=== PATIENT | female | born 1960 | race Caucasian/White ===

== ENCOUNTER 2022-12-17 06:52 | Outpatient (OUT) | payer OTHER, BC, SELFPAY ==
[2022-12-17 07:42] LABS: Basophils Percent Auto 0.6 % (0.2-2.0); Eosinophils Absolute Auto 0.1 10^3/uL (0.0-0.7); Eosinophils Percent Auto 1.9 % (0.9-7.0); Hematocrit 41.9 % (36.0-48.0); Hemoglobin 14.2 g/dL (12.0-16.0); Immature Granulocytes Abs Auto 0.01 10^3/uL (0.00-0.03); Immature Granulocytes Pct Auto 0.2 % (0.0-0.5); Lymphocytes Absolute Auto 1.9 10^3/uL (1.2-3.8); Mean Corpuscular HGB Conc 33.9 g/dL (29.9-35.2); Mean Corpuscular Hemoglobin 31.8 pg (26.7-34.0); Mean Corpuscular Volume 93.9 fL (81.0-99.0); Mean Platelet Volume 9.8 fL (9.5-13.5); Monocytes Absolute Auto 0.4 10^3/uL (0.3-0.8); Neutrophils Absolute Auto 2.7 10^3/uL (1.4-6.5); Neutrophils Percent Auto 52.3 % (43.0-75.0); Platelet Count 287 10^3/uL (150-450); Red Blood Count 4.46 10^6/uL (4.20-5.40); Red Cell Distribution Width 12.1 % (11.0-15.0); White Blood Count 5.2 10^3/uL (4.0-11.0)
[2022-12-17 08:29] LABS: Alanine Aminotransferase 21 U/L (14-59); Albumin Globulin Ratio 1.2; Albumin Level 4.3 g/dL (3.4-5.0); Alkaline Phosphatase 77 U/L (46-116); Aspartate Amino Transferase 19 U/L (15-37); BUN Creatinine Ratio 25.8; Bilirubin Total 0.4 mg/dL (0.2-1.0); Calcium 9.5 mg/dL (8.5-10.1); Carbon Dioxide 27.9 mmol/L (21.0-32.0); Chloride 101 mmol/L (98-107); Chol HDL Ratio 2.1; Cholesterol 246 mg/dL (<=200); Estimated GFR (African America >60 (>=60); Estimated GFR (Non-African Ame >60 (>=60); Globulin 3.7 g/dL; Glucose 104 mg/dL (74-106); HDL Cholesterol 117 mg/dL (40-60); Potassium 3.9 mmol/L (3.5-5.1); Sodium 138 mmol/L (136-145); Thyroid Stimulating Hormone 2.439 uIU/mL (0.358-3.740); Triglycerides 96 mg/dL (<=150); VLDL CHOLESTEROL 19.2 mg/dL
== END 2022-12-17 06:53 | disposition home or self-care (01) ==
LOC: LAB 06:58
PROVIDERS: PCP Internal Medicine; Visit Provider Internal Medicine
DX: Z00.00 Encounter for general adult medical examination without abnormal findings (principal)
CPT/HCPCS: 36415; 80053; 80061; 84443; 85025

== ENCOUNTER 2023-02-17 14:49 | Outpatient (OUT) | payer OTHER, BC, SELFPAY ==
--- NOTE | 2023-02-17 14:51 | MM_ITS ---
Patient Name: REILLY VIVAS MR#: [id number] : 1960 Exam Date: 02/17/2023 Ordering Doctor: DR Tereso Mcgarry . RADIOLOGY REPORT PROCEDURE: MM TOMOSYNTHESIS SCREENING BI COMPARISON: MG MAMM SCREEN 3D DEJA CAD, 11/17/2021. MG MAMM SCREEN 3D DEJA CAD, 10/23/2020. MG MAMM SCREEN DEJA W CAD, 10/09/2019. MG MAMM DEJA SCRN W CAD DIG, 11/29/2012. INDICATIONS: Screening Calculator Name NCI Breast Cancer Risk Assessment Tool 5 Year Breast Cancer Risk 1.90% Lifetime Breast Cancer Risk 8.90% Personal Breast Cancer No Personal Ovarian Cancer No Treatments None Family Cancers None LOCATION: [facility] BREAST COMPOSITION: Extremely dense, which lowers the sensitivity of mammography. FINDINGS: DIAGNOSTIC CATEGORY 1--NEGATIVE. RIGHT BREAST: No significant suspicious finding. No significant change has occurred. LEFT BREAST: No significant suspicious finding. No significant change has occurred. RECOMMENDATIONS: ROUTINE MAMMOGRAM AND CLINICAL EVALUATION IN 12 MONTHS. PLEASE NOTE: A NORMAL MAMMOGRAM DOES NOT EXCLUDE THE POSSIBILITY OF BREAST CANCER. A CLINICALLY SUSPICIOUS PALPABLE LUMP SHOULD BE BIOPSIED. Dictated by: Migue Collazo M.D. on 02/18/2023 at 14:00 Approved by: Migue Collazo M.D. on 02/18/2023 at 14:04
== END 2023-02-17 14:50 | disposition home or self-care (01) ==
LOC: MAMMO 14:49
PROVIDERS: PCP Internal Medicine; Visit Provider Obstetrics & Gynecology
DX: Z12.31 Encounter for screening mammogram for malignant neoplasm of breast (principal)
CPT/HCPCS: 77063; 77067

== ENCOUNTER 2023-07-12 21:40 | Outpatient (REF) | payer OTHER, SELFPAY ==
--- OUTSIDE RECORDS SUMMARY | 2023-07-12 21:50 | XMS_ITS | CCD ---
Author Organization [facility] Care Team Providers Care Litigation Legal Secretary Name Role Phone CATHERINE ., DR GILLESPIE Attending Unavailable CATHERINE ., DR GILLESPIE Consulting Unavailable BALL, DR RIVERA Primary Care Unavailable CATHERINE ., DR GILLESPIE Admitting Unavailable SHARP, YODIT Consulting Unavailable GEOVANY II, NELSON Consulting Unavailable CATHERINE ., DR GILLESPIE Attending Unavailable CATHERINE ., DR GILLESPIE Consulting Unavailable BALL, DR RIVERA Primary Care Unavailable CATHERINE ., DR GILLESPIE Admitting Unavailable CATHERINE ., DR GILLESPIE Attending Unavailable BALL, DR RIVERA Primary Care Unavailable CATHERINE ., DR GILLESPIE Consulting Unavailable CATHERINE ., DR GILLESPIE Admitting Unavailable CATHERINE ., DR GILLESPIE Consulting Unavailable BALL, DR RIVERA Primary Care Unavailable CATHERINE ., DR GILLESPIE Admitting Unavailable CATHERINE ., DR GILLESPIE Attending Unavailable HYDE PARK, DR OXANA Hernandez Consulting Unavailable BALL, DR RIVERA Primary Care Unavailable CATHERINE ., DR GILLESPIE Admitting Unavailable CATHERINE ., DR GILLESPIE Attending Unavailable CATHERINE ., DR GILLESPIE Consulting Unavailable ZIEBER, DR KINJAL Diehl Consulting Unavailable ALEJANDRO, DR RIVERA Consulting Unavailable ALEJANDRO, DR RIVERA Primary Care Unavailable BALL, DR RIVERA Admitting Unavailable BALL, DR RIVERA Attending Unavailable CATHERINE ., DR GILLESPIE Consulting Unavailable CATHERINE ., DR GILLESPIE Attending Unavailable CATHERINE ., DR GILLESPIE Consulting Unavailable ALEJANDRO, DR RIVERA Primary Care Unavailable CATHERINE ., DR GILLESPIE Admitting Unavailable Alber Allen Unavailable ALEXANDRA MIRAMONTES Attending Unavailable ALBER ALLEN Referring Unavailable ALEXANDRA MIRAMONTES Attending Unavailable Allergies Allergy Classification Reported Allergen(s) Allergy Type Date of Onset Reaction(s) Facility (1 source) Amoxicillin Drug Allergy 6 [facility] Rep[facility] (3 sources) Penicillin Drug Allergy Unknown [facility] Other (3 sources) Substance with penicillin structure and antibacterial mechanism of action (substance) Drug allergy 1 PENICILLINS [facility] Other Medications Current Medications Medication Drug Class(es) Dates Sig (Normalized) Sig (Original) tiZANidine 4 mg oral tablet (4 sources) Central alpha-2 Adrenergic Agonist take 0.5-1 tablets by mouth once at bedtime Completed/Discontinued Medications Medication Drug Class(es) Dates Sig (Normalized) Sig (Original) azithromycin 250 mg oral tablet (5 sources) Macrolide Antimicrobial Start: 08-02-2022 Azithromycin 250 MG as directed Orally daily for 5 days Jan, Not-Taking/PRN Problems Active Problems Problem Classification Problem Date Documented Date Episodic/Chronic Abdominal pain (1 source) Pelvic and perineal pain; Translations: [PELVIC AND PERINEAL PAIN] Onset: 05-18-2022 Episodic Acute bronchitis (3 sources) Acute bronchitis; Translations: [Acute bronchitis due to other specified organisms] Episodic Administrative/social admission (1 source) Other specified counseling Episodic Anxiety disorders (2 sources) Generalized anxiety disorder; Translations: [Generalized anxiety disorder] Chronic Cancer of cervix (4 sources) High grade squamous intraepithelial lesion on cytologic smear of cervix (HGSIL); Translations: [Atypical squamous cells of undetermined significance on cervical Papanicolaou smear] Onset: 05-18-2022 Episodic Immunizations and screening for infectious disease (7 sources) Encounter for screening for human papillomavirus (HPV); Translations: [Contact with and (suspected) exposure to other viral communicable diseases] Onset: 01-30-2022 Resolved: 07-21-2021 Episodic Osteoarthritis (8 sources) Unilateral primary osteoarthritis, left hip; Translations: [Arthritis of left hip] Onset: 05-18-2022 Chronic Other bone disease and musculoskeletal deformities (10 sources) Idiopathic scoliosis AND/OR kyphoscoliosis; Translations: [Other idiopathic scoliosis, site unspecified] Onset: 10-20-2016 Chronic Other nutritional; endocrine; and metabolic disorders (3 sources) Overweight; Translations: [Overweight] Episodic Other upper respiratory disease (3 sources) Vocal cord paralysis; Translations: [Paralysis of vocal cords and larynx, unilateral] Chronic Other upper respiratory infections (10 sources) Acute maxillary sinusitis, unspecified; Translations: [Acute laryngitis] Onset: 01-30-2015 Episodic Prolapse of female genital organs (5 sources) Incomplete uterovaginal prolapse; Translations: [INCOMPLETE UTEROVAGINAL PROLAPSE] Onset: 05-07-2022 Chronic Residual codes; unclassified (5 sources) Asymptomatic menopausal state; Translations: [ASYMPTOMATIC MENOPAUSAL STATE] Onset: 11-17-2021 Episodic Residual codes; unclassified (3 sources) Postmenopausal state; Translations: [Asymptomatic menopausal state] Episodic Past or Other Problems Problem Classification Problem Date Documented Da te Episodic/Chronic Other bone disease and musculoskeletal deformities (1 source) Other specified disorders of bone density and structure, other site; Translations: [OTH D/O BONE DEN STRUCT OTH SITE] Onset: 11-18-2021 Episodic Other inflammatory condition of skin (3 sources) Seborrheic dermatitis; Translations: [Other seborrheic dermatitis] Onset: 10-20-2016 Episodic Other non-traumatic joint disorders (3 sources) Arthralgia of the pelvic region and thigh; Translations: [Pain in joint, pelvic region and thigh] Onset: 10-20-2016 Episodic Other nutritional; endocrine; and metabolic disorders (3 sources) Body mass index 25-29 - overweight; Translations: [Body mass index (BMI) 26.0-26.9, adult] Onset: 10-20-2016 Episodic Other screening for suspected conditions (not mental disorders or infectious disease) (9 sources) Encounter for screening for malignant neoplasm of cervix; Translations: [Encounter for screening mammogram for malignant neoplasm of breast] Onset: 11-18-2021 Resolved: 07-21-2021 Episodic Results Test Name Value Interpretation Reference Range Facility CBC W MANUAL DIFFon 05-07-19 23 ATYPICAL LYMPH # Normal [facility] Comment on above: Performed By: #### C BCMAN #### [facility] [address] [address] [address] Bradley De Oliveira ATYPICAL LYMPH % Normal [facility] Comment on above: Performed By: #### C BCMAN #### [facility] [address] [address] [address] Bradley De Oliveira BAND # Normal 0.0-0.3 [facility] Comment on above: Performed By: #### C BCMAN #### [facility] [address] [address] [address] Bradley De Oliveira BAND % Normal 0-5 [facility] Comment on above: Performed By: #### C ANDREW #### [facility] [address] [place] [address] Dr. Bradley De Oliveira BASOM # 0.00 103/ul Normal 0.00-0.10 [facility] Comment on above: Performed By: #### C ANDREW #### [facility] [address] [place] [address] Dr. Bradley De Oliveira BASOM % 0.0 % Critically low 0.2-2.0 [facility] Comment on above: Performed By: #### C BCALEXIS #### [facility] [address] [place] [address] Dr. Bradley De Oliveira BLAST # Normal [facility] Comment on above: Performed By: #### C ANDREW #### [facility] [address] [place] [address] Dr. Bradley De Oliveira BLAST % Normal [facility] Comment on above: Performed By: #### C BCALEXIS #### [facility] [address] [place] [address] Dr. Bradley De Oliveira CORRECTED WBC Normal 4.0-11.0 [facility] Comment on above: Performed By: #### C ANDREW #### [facility] [address] [place] [address] Dr. Bradley De Oliveira EOS # 0.00 103/ul Normal 0.00-0.70 [facility] Comment on above: Performed By: #### C ANDREW #### [facility] [address] [place] [address] Dr. Bradley De Oliveira EOS% 0.0 % Critically low 0.9-7.[address] [facility] Comment on above: Performed By: #### C BCALEXIS #### [facility] [address] [place] [address] Dr. Bradley De Oliveira HCT 40.8 % Normal 36.0-48.0 [facility] Comment on above: Performed By: #### C ANDREW #### [facility] [address] [place] [address] Dr. Bradley De Oliveira HGB 14.0 g/dl Normal 12.0-16.0 [facility] Comment on above: Performed By: #### C ANDREW #### [facility] [address] [place] [address] Dr. Bradley De Oliveira LYMPHM # 0.22 103/ul Critically low 1.20-3.80 [facility] Comment on above: Performed By: #### C ANDREW #### [facility] [address] [place] [address] Dr. Bradley De Oliveira LYMPHM% 2.0 % Critically low 20.5-60.0 [facility] Comment on above: Performed By: #### C ANDREW #### [facility] [address] [place] [address] Dr. Bradley De Oliveira MCH 31.3 pg Normal 26.7-34.0 [facility] Comment on above: Performed By: #### Shamar MORALES #### [facility] [address] [place] [address] Dr. Bradley De Oliveira MCHC 34.3 g/dl Normal 29.9-35.2 [facility] Comment on above: Performed By: #### Shamar MORALES #### [facility] [address] [place] [address] Dr. Bradley De Oliveira MCV 91.3 fL Normal 81.0-99.0 [facility] Comment on above: Performed By: #### Shamar MORALES #### [facility] [address] [place] [address] Dr. Bradley De Oliveira METAMYELOCYTE # Normal [facility] Comment on above: Performed By: #### Shamar MORALES #### [facility] [address] [place] [address] Dr. Bradley De Oliveira METAMYELOCYTE % Normal [facility] Comment on above: Performed By: #### C ANDREW #### [facility] [address] [place] [address] Dr. Bradley De Oliveira MONOM# 0.44 103/ul Normal 0.30-0.80 [facility] Comment on above: Performed By: #### C ANDREW #### [facility] [address] [address] [address] Bradley De Oliveira MONOM% 4.0 % Normal 1.7-12.0 [facility] Comment on above: Performed By: #### C ANDREW #### [facility] [address] [address] [address] Bradley De Oliveira MPV 9.3 fL Critically low 9.5-13.5 [facility] Comment on above: Performed By: #### C ANDREW #### [facility] [address] [place] [address] Dr. Bradley De Oliveira MYELOCYTE # Normal [facility] Comment on above: Performed By: #### C ANDREW #### [facility] [address] [place] [address] Dr. Bradley De Oliveira MYELOCYTE % Normal [facility] Comment on above: Performed By: #### Shamar MORALES #### [facility] [address] [place] [address] Dr. Bradley De Oliveira NRBC Normal [facility] Comment on above: Performed By: #### Shamar MORALES #### [facility] [address] [place] [address] Dr. Bradley De Oliveira PLT 293 103/ul Normal 150-450 [facility] Comment on above: Performed By: #### C ANDREW #### [facility] [address] [place] [address] Dr. Bradley De Oliveira RBC 4.47 106/ul Normal 4.20-5.40 [facility] Comment on above: Performed By: #### C ANDREW #### [facility] [address] [place] [address] Dr. Bradley De Oliveira RDW 12.4 % Normal 11.0-15.0 [facility] Comment on above: Performed By: #### C ANDREW #### [facility] [address] [place] [address] Dr. Bradley De Oliveira SEG # 10.34 103/ul Critically high 1.40-6.50 [facility] Comment on above: Performed By: #### C ANDREW #### [facility] [address] [address] [address] Bradley De Oliveira SEG % 94.0 % Critically high 43.0-75.0 [facility] Comment on above: Performed By: #### C ANDREW #### [facility] [address] [place] [address] Dr. Bradley De Oliveira WBC 11.0 103/ul Normal 4.0-11.0 [facility] Comment on above: Performed By: #### C ANDREW #### [facility] [address] [place] [address] Dr. Bradley De Oliveira CBC AUTO DIFFon 05-04-2022 BASO # 0.0 103/ul Normal 0.0-0.1 [facility] Comment on above: Performed By: #### P APH11A #### [facility] [address] [place] [address] Dr. Bradley De Oliveira Basophils/100 WBC (Bld) 0.5 % Normal 0.2-2.0 [facility] Comment on above: Performed By: #### P APH11A #### [facility] [address] [place] [address] Dr. Bradley De Oliveira EO # 0.1 103/ul Normal 0.0-0.7 [facility] Comment on above: Performed By: #### P APH11A #### [facility] [address] [place] [address] Dr. Bradley De Oliveira Eosinophils/100 WBC (Bld) 1.7 % Normal 0.9-7.0 [facility] Comment on above: Performed By: #### P APH11A #### [facility] [address] [place] [address] Dr. Bradley De Oliveira Erythrocyte distribution width (RBC) [Ratio] 12.4 % Normal 11.0-15.0 [facility] Comment on above: Performed By: #### P APH11A #### [facility] [address] [place] [address] Dr. Bradley De Oliveira Hematocrit (Bld) [Volume fraction] 39.9 % Normal 36.0-48.0 [facility] Comment on above: Performed By: #### P APH11A #### [facility] [address] [address] [address] Bradley De Oliveira Hemoglobin (Bld) [Mass/Vol] 14.0 g/dL Normal 12.0-16.0 [facility] Comment on above: Performed By: #### P APH11A #### [facility] [address] [address] [address] Bradley De Oliveira IG # 0.02 10e3/ul Normal 0.00-0.03 [facility] Comment on above: Performed By: #### P APH11A #### [facility] [address] [address] [address] Bradley De Oliveiar IG % 0.3 % Normal 0.0-0.5 [facility] Comment on above: Performed By: #### P APH11A #### [facility] [address] [place] [address] Dr. Bradley De Oliveira LYMPH # 2.5 103/ul Normal 1.2-3.8 [facility] Comment on above: Performed By: #### P APH11A #### [facility] [address] [place] [address] Dr. Bradley De Oliveira Lymphocytes/100 WBC (Bld) 38.7 % Normal 20.5-60.0 [facility] Comment on above: Performed By: #### P APH11A #### [facility] [address] [place] [address] Dr. Bradley De Oliveira MANUAL DIFF REQ NO Normal [facility] Comment on above: Performed By: #### P APH11A #### [facility] [address] [address] [address] Bradley De Oliveira MCH (RBC) [Entitic mass] 31.7 pg Normal 26.7-34.0 [facility] Comment on above: Performed By: #### P APH11A #### [facility] [address] [place] [address] Dr. Bradley De Oliveira MCHC (RBC) [Mass/Vol] 35.1 g/dL Normal 29.9-35.2 [facility] Comment on above: Performed By: #### P APH11A #### [facility] [address] [address] [address] Bradley De Oliveira MCV (RBC) [Entitic vol] 90.3 fL Normal 81.0-99.0 [facility] Comment on above: Performed By: #### P APH11A #### [facility] [address] [address] [address] Bradley De Oliveira MONO # 0.4 103/ul Normal 0.3-0.8 [facility] Comment on above: Performed By: #### P APH11A #### [facility] [address] [place] [address] Dr. Bradley De Oliveira Monocytes/100 WBC (Bld) 6.1 % Normal 1.7-12.0 [facility] Comment on above: Performed By: #### P APH11A #### [facility] [address] [place] [address] Dr. Bradley De Oliveira NEUT # 3.5 103/ul Normal 1.4-6.5 [facility] Comment on above: Performed By: #### P APH11A #### [facility] [address] [place] [address] Dr. Bradley De Oliveira Neutrophils/100 WBC (Bld) 52.7 % Normal 43.0-75.0 [facility] Comment on above: Performed By: #### P APH11A #### [facility] [address] [place] [address] Dr. Bradley De Oliveira Platelet mean volume (Bld) [Entitic vol] 9.3 fL Critically low 9.5-13.5 [facility] Comment on above: Performed By: #### P APH11A #### [facility] [address] [place] [address] Dr. Bradley De Oliveira PLT 304 103/ul Normal 150-450 [facility] Comment on above: Performed By: #### P APH11A #### [facility] [address] [place] [address] Dr. Bradley De Oliveira RBC 4.42 106/ul Normal 4.20-5.40 [facility] Comment on above: Performed By: #### P APH11A #### [facility] [address] [place] [address] Dr. Bradley De Oliveira WBC 6.6 103/ul Normal 4.0-11.0 [facility] Comment on above: Performed By: #### P APH11A #### [facility] [address] [place] [address] Dr. Bradley De Oliveira TYPE AND SCREENon 05-04-2022 TYPE AND SCREEN Negative Normal [facility] Comment on above: Performed By: #### T NS #### [facility] [address] [place] [address] Dr. Bradley De Oliveira Pap IG,rfx Aptima HPV all pt hon 02-04-2022 . . Normal [facility] Comment on above: Performed By: #### P APH11A #### [facility] [address] [place] [address] Dr. Bradley De Oliveira DIAGNOSIS: Comment Normal [facility] Comment on above: Result Comment: NEGA TIVE FOR INTRAEPITHELIAL LESION OR MALIGNANCY. Performed By: #### P APH11A #### [facility] [address] [place] [address] Dr. Bradley De Oliveira Methodology: Comment Normal [facility] Comment on above: Result Comment: This liquid based ThinPrep(R) pap test was screened with the use of an image guided system. Performed By: #### P APH11A #### [facility] [address] [place] [address] Dr. Bradley De Oliveira Note: Comment Normal [facility] Comment on above: Result Comment: The Pap smear is a screening test designed to aid in the detection of premalignant and malignant conditions of the uterine cervix. It is not a diagnostic procedure and should not be used as the sole means of detecting cervical cancer. Both false-positive and false-negative reports do occur. . Performed By: #### P APH11A #### [facility] [address] [place] [address] Dr. Bradley De Oliveira Performed by: Comment Normal [facility] Comment on above: Result Comment: Sofía Sauer, Supervisor [employer] ([employer]) Performed By: #### P APH11A #### [facility] [address] [place] [address] Dr. Bradley De Oliveira QC reviewed by: Comment Normal [facility] Comment on above: Result Comment: Stepan Gatica, Supervisory Supervisor [employer] ([employer]) Performed By: #### P APH11A #### [facility] [address] [place] [address] Dr. Bradley De Oliveira Reflex Criteria: Comment Normal [facility] Comment on above: Result Comment: The HPV DNA reflex criteria were not met with this specimen result therefore, no HPV testing was performed. . Performed By: #### P APH11A #### [facility] [address] [place] [address] Dr. Bradley De Oliveira Specimen adequacy: Comment Normal [facility] Comment on above: Result Comment: Sati sfactory for evaluation. Endocervical component may not be distinguished in cases of atrophy. Performed By: #### P APH11A #### [facility] [address] [place] [address] Dr. Bradley De Oliveira CBC AUTO DIFFon 11-28-2021 BASO # 0.0 103/ul Normal 0.0-0.1 [facility] Comment on above: Performed By: #### C BC #### [facility] [address] [place] [address] Dr. Bradley De Oliveira Basophils/100 WBC (Bld) 0.7 % Normal 0.2-2.0 [facility] Comment on above: Performed By: #### C BC #### [facility] [address] [place] [address] Dr. Bradley De Oliveira EO # 0.2 103/ul Normal 0.0-0.7 [facility] Comment on above: Performed By: #### C BC #### [facility] [address] [place] [address] Dr. Bradley De Oliveira Eosinophils/100 WBC (Bld) 3.7 % Normal 0.9-7.0 [facility] Comment on above: Performed By: #### C BC #### [facility] [address] [place] [address] Dr. Bradley De Oliveira Erythrocyte distribution width (RBC) [Ratio] 12.4 % Normal 11.0-15.0 [facility] Comment on above: Performed By: #### C BC #### [facility] [address] [place] [address] Dr. Bradley De Oliveira Hematocrit (Bld) [Volume fraction] 44.2 % Normal 36.0-48.0 [facility] Comment on above: Performed By: #### C BC #### [facility] [address] [place] [address] Dr. Bradley De Oliveira Hemoglobin (Bld) [Mass/Vol] 14.9 g/dL Normal 12.0-16.0 [facility] Comment on above: Performed By: #### C BC #### [facility] [address] [place] [address] Dr. Bradley De Oliveira IG # 0.01 10e3/ul Normal 0.00-0.03 [facility] Comment on above: Performed By: #### C BC #### [facility] [address] [place] [address] Dr. Bradley De Oliveira IG % 0.2 % Normal 0.0-0.5 [facility] Comment on above: Performed By: #### C BC #### [facility] [address] [place] [address] Dr. Bradley De Oliveira LYMPH # 1.7 103/ul Normal 1.2-3.8 [facility] Comment on above: Performed By: #### C BC #### [facility] [address] [place] [address] Dr. Bradley De Oliveira Lymphocytes/100 WBC (Bld) 39.6 % Normal 20.5-60.0 [facility] Comment on above: Performed By: #### C BC #### [facility] [address] [place] [address] Dr. Bradley De Oliveira MANUAL DIFF REQ NO Normal [facility] Comment on above: Performed By: #### C BC #### [facility] [address] [place] [address] Dr. Bradley De Oliveira MCH (RBC) [Entitic mass] 31.6 pg Normal 26.7-34.0 [facility] Comment on above: Performed By: #### C BC #### [facility] [address] [address] [address] Bradley De Oliveira MCHC (RBC) [Mass/Vol] 33.7 g/dL Normal 29.9-35.2 [facility] Comment on above: Performed By: #### C BC #### [facility] [address] [place] [address] Dr. Bradley De Oliveira MCV (RBC) [Entitic vol] 93.6 fL Normal 81.0-99.0 [facility] Comment on above: Performed By: #### C BC #### [facility] [address] [place] [address] Dr. Bradley De Oliveira MONO # 0.4 103/ul Normal 0.3-0.8 [facility] Comment on above: Performed By: #### C BC #### [facility] [address] [place] [address] Dr. Bradley De Oliveira Monocytes/100 WBC (Bld) 9.5 % Normal 1.7-12.0 [facility] Comment on above: Performed By: #### C BC #### [facility] Laboratory [address] [place] [address] Dr. Bradley De Oliveira NEUT # 2.0 103/ul Normal 1.4-6.5 [facility] Comment on above: Performed By: #### C BC #### [facility] [address] [place] [address] Dr. Bradley De Oliveira Neutrophils/100 WBC (Bld) 46.3 % Normal 43.0-75.0 [facility] Comment on above: Performed By: #### C BC #### [facility] [address] [place] [address] Dr. Bradley De Oliveira Platelet mean volume (Bld) [Entitic vol] 9.3 fL Critically low 9.5-13.5 [facility] Comment on above: Performed By: #### C BC #### [facility] [address] [place] [address] Dr. Bradley De Oliveira PLT 279 103/ul Normal 150-450 [facility] Comment on above: Performed By: #### C BC #### [facility] [address] [address] [address] Bradley De Oliveira RBC 4.72 106/ul Normal 4.20-5.40 [facility] Comment on above: Performed By: #### C BC #### [facility] [address] [address] [address] Bradley De Oliveira WBC 4.3 103/ul Normal 4.0-11.0 [facility] Comment on above: Performed By: #### C BC #### [facility] [address] [place] [address] Dr. Bradley De Oliveira LIPID PROFILEon 11-28-2021 CHOL-HDL RATIO NORM SEE BELOW Normal [facility] Comment on above: Result Comment: 3.3 - 4.4 LOW RISK 4.4 - 7.1 AVERAGE RISK 7.1 - 11.0 MODERATE RISK >11.0 HIGH RISK Performed By: #### C MP, LIPID, TSH #### [facility] [address] [place] [address] Dr. Bradley De Oliveira Cholesterol [Mass/Vol] 223 mg/dL Critically high <=200 [facility] Comment on above: Performed By: #### C MP, LIPID, TSH #### [facility] [address] [place] [address] Dr. Bradley De Oliveira Cholesterol in HDL [Mass/Vol] 108 mg/dL Critically high 40-60 [facility] Comment on above: Performed By: #### C MP, LIPID, TSH #### [facility] [address] [place] [address] Dr. Bradley De Oliveira Cholesterol in LDL [Mass/Vol] 100.6 mg/dL Normal [facility] Comment on above: Performed By: #### C MP, LIPID, TSH #### [facility] [address] [place] [address] Dr. Bradley De Oliveira Cholesterol.total/Ch olesterol in HDL [Mass ratio] 2.1 {ratio} Normal [facility] Comment on above: Performed By: #### C MP, LIPID, TSH #### [facility] [address] [place] [address] Dr. Bradley De Oliveira HDL NORMAL > or = 60 mg/dl - LO W CARDIOVASCULAR RISK <40 mg/dl - HIGH CARDIOVASCULAR RISK Normal [facility] Comment on above: Performed By: #### C MP, LIPID, TSH #### [facility] [address] [address] [address] Bradley De Oliveira LDL CALC NORMAL SEE BELOW Normal [facility] Comment on above: Result Comment: <100 mg/dl OPTIMAL 100 - 129 mg/dl NEAR OR ABOVE OPTIMAL 130 - 159 mg/dl BORDERLINE HIGH 160 - 189 mg/dl HIGH >190 mg/dl VERY HIGH Performed By: #### C MP, LIPID, TSH #### [facility] [address] [address] [address] Bradley De Oliveira Triglyceride [Mass/Vol] 72 mg/dL Normal <=150 [facility] Comment on above: Performed By: #### C MP, LIPID, TSH #### [facility] [address] [address] [address] Bradley De Oliveira VLDL CALC 14.4 mg/dL Normal [facility] Comment on above: Performed By: #### C MP, LIPID, TSH #### [facility] [address] [address] [address] Bradley De Oliveira PROF 14(COMP METB)on 022 Albumin [Mass/Vol] 4.2 g/dL Normal 3.4-5.0 [facility] Comment on above: Performed By: #### C MP, LIPID, TSH #### [facility] [address] [address] [address] Bradley De Oliveira Albumin/Globulin [Mass ratio] 1.1 {ratio} Normal [facility] Comment on above: Performed By: #### C MP, LIPID, TSH #### [facility] [address] [address] [address] Bradley De Oliveira ALP [Catalytic activity/Vol] 77 U/L Normal 46-116 [facility] Comment on above: Performed By: #### C MP, LIPID, TSH #### [facility] [address] [address] [address] Bradley De Oliveira ALT [Catalytic activity/Vol] 24 U/L Normal 14-59 [facility] Comment on above: Performed By: #### C MP, LIPID, TSH #### [facility] [address] [address] [address] Bradley De Oliveira Anion gap [Moles/Vol] 12.7 mmol/L Normal [facility] Comment on above: Performed By: #### C MP, LIPID, TSH #### [facility] [address] [address] [address] Bradley De Oliveira AST [Catalytic activity/Vol] 25 U/L Normal 15-37 [facility] Comment on above: Performed By: #### C MP, LIPID, TSH #### [facility] [address] [place] [address] Dr. Bradley De Oliveira Bilirubin [Mass/Vol] 0.4 mg/dL Normal 0.2-1.0 [facility] Comment on above: Performed By: #### C MP, LIPID, TSH #### [facility] [address] [place] [address] Dr. Bradley De Oliveira Calcium [Mass/Vol] 9.3 mg/dL Normal 8.5-10.1 [facility] Comment on above: Performed By: #### C MP, LIPID, TSH #### [facility] [address] [place] [address] Dr. Bradley De Oliveira Chloride [Moles/Vol] 102 mmol/L Normal 98-107 [facility] Comment on above: Performed By: #### C MP, LIPID, TSH #### [facility] [address] [place] [address] Dr. Bradley De Oliveira CO2 [Moles/Vol] 28.2 mmol/L Normal 21.0-32.0 [facility] Comment on above: Performed By: #### C MP, LIPID, TSH #### [facility] [address] [place] [address] Dr. Bradley De Oliveira Creatinine [Mass/Vol] 0.60 mg/dL Normal 0.55-1.02 [facility] Comment on above: Performed By: #### C MP, LIPID, TSH #### [facility] [address] [place] [address] Dr. Bradley De Oliveira EGFR-AF BRAZILIAN >60 Normal >=60 [facility] Comment on above: Performed By: #### C MP, LIPID, TSH #### [facility] [address] [place] [address] Dr. Bradley De Oliveira EGFR-NON AF BRAZILIAN >60 Normal >=60 [facility] Comment on above: Performed By: #### C MP, LIPID, TSH #### [facility] [address] [address] [address] Bradley De Oliveira Globulin (S) [Mass/Vol] 3.7 g/dL Normal [facility] Comment on above: Performed By: #### C MP, LIPID, TSH #### [facility] [address] [place] [address] Dr. Bradley De Oliveira Glucose [Mass/Vol] 89 mg/dL Normal 74-106 [facility] Comment on above: Performed By: #### C MP, LIPID, TSH #### [facility] [address] [place] [address] Dr. Bradley De Oliveira Potassium [Moles/Vol] 3.9 mmol/L Normal 3.5-5.1 [facility] Comment on above: Performed By: #### C MP, LIPID, TSH #### [facility] [address] [place] [address] Dr. Bradley De Oliveira Protein [Mass/Vol] 7.9 g/dL Normal 6.4-8.2 [facility] Comment on above: Performed By: #### C MP, LIPID, TSH #### [facility] [address] [place] [address] Dr. Bradley De Oliveira Sodium [Moles/Vol] 139 mmol/L Normal 136-145 [facility] Comment on above: Performed By: #### C MP, LIPID, TSH #### [facility] [address] [place] [address] Dr. Bradley De Oliveira Urea nitrogen [Mass/Vol] 14.0 mg/dL Normal 7.0-18.0 [facility] Comment on above: Performed By: #### C MP, LIPID, TSH #### [facility] [address] [place] [address] Dr. Bradley De Oliveira Urea nitrogen/Creatinine [Mass ratio] 23.3 mg/mg Normal [facility] Comment on above: Performed By: #### C MP, LIPID, TSH #### [facility] [address] [address] [address] Bradley De Oliveira TSHon 11-28-2021 TSH 1.453 uIU/mL Normal 0.358-3.740 [facility] Comment on above: Performed By: #### C MP, LIPID, TSH #### [facility] [address] [place], [place] [address] Dr. Bradley De Oliveira MG MAMM SCREEN 3D DEJA CADon 11-17-2021 MG MAMM SCREEN 3D DEJA CAD Patient: REILLY VIVAS Exam Date: 11/17/2021 : 1960 Gender:F Ordering : DR VERNA MCGARRY . Admission #: [id number] Family : Order #: [id number] CLICK HERE TO VIEW EXAM RADIOLOGY REPORT PROCEDURE: MAMMOGRAM SCREENING 3D BILATERAL CAD COMPARISON: MG MAMM SCREEN DEJA W CAD, 10/09/2019. MG MAMM SCREEN 3D DEJA CAD, 10/23/2020. INDICATIONS: Screening mammography Calculator Name NCI Breast Cancer Risk Assessment Tool 5 Year Breast Cancer Risk 1.70% Lifetime Breast Cancer Risk 9.40% Personal Breast Cancer No Personal Ovarian Cancer No Treatments None Family Cancers None LOCATION: [facility] BREAST COMPOSITION: Extremely dense, which lowers the sensitivity of mammography. FINDINGS: DIAGNOSTIC CATEGORY 1--NEGATIVE. NO CHANGE FROM COMPARISON ASSESSMENT. Scattered benign-appearing calcifications are present. RIGHT BREAST: No significant suspicious finding. LEFT BREAST: No significant suspicious finding. RECOMMENDATIONS: ROUTINE MAMMOGRAM AND CLINICAL EVALUATION IN 12 MONTHS. PLEASE NOTE: A NORMAL MAMMOGRAM DOES NOT EXCLUDE THE POSSIBILITY OF BREAST CANCER. A CLINICALLY SUSPICIOUS PALPABLE LUMP SHOULD BE BIOPSIED. Dictated by: Oxana Ortega MD on 11/18/2021 at 08:09 Approved by: Oxana Ortega MD on 11/18/2021 at 08:11 Normal [facility] XR DEXA BONE DENSITYon 11-17 XR DEXA BONE DENSITY EXAMINATION: XR DEX A BONE DENSITY, 11/17/2021 2:57 PM EDT HISTORY: Menopause present COMPARISON: DEXA bone densitometry 02/17/2016 TECHNIQUE: Dual-energy X-ray absorptiometry (DEXA) bone density study performed for the axial skeleton. FINDINGS: FOREARM ANALYSIS: Average bone mineral density is 0.648 g/cm2. T-score (standard deviation relative to young adult mean): -0.9 . Not previously evaluated. HIP ANALYSIS: Lowest bone mineral density is within the left femoral trochanter, 0.676 g/cm2. T-score (standard deviation relative to young adult mean): -1.5 . -7.7% change since prior study. IMPRESSION: [employer] Classification: Osteopenia - Moderate Fracture Risk Electronically authenticated by: KINJAL MANNING Date: 2021-11-17 15:54 Normal [facility] Pap IG, rfx Aptima HPV ASCUo n 07-30-2021 . . Normal [facility] Comment on above: Performed By: #### P [id number] #### [facility] [address] [address] [address] Bradley De Oliveira DIAGNOSIS: Comment Abnormal [facility] Comment on above: Result Comment: EPIT HELIAL CELL ABNORMALITY. ATYPICAL SQUAMOUS CELLS OF UNDETERMINED SIGNIFICANCE (ASC-US). Performed By: #### P APH11A #### [facility] [address] [address] [address] Bradley De Oliveira Electronically signed by: Comment Normal [facility] Comment on above: Result Comment: Minerva Pizarro MD, Pathologist Performed By: #### P APH11A #### [facility] [address] [address] [address] Bradley De Oliveira HPV Aptima Positive Abnormal Negative [facility] Comment on above: Result Comment: This nucleic acid amplification test detects fourteen high-risk HPV types (16,18,31,33,35,39,45,51,52,56,58,59,66,68) without differentiation. Performed By: #### P APH11A #### [facility] [address] [address] [address] Bradley De Oliveira Methodology: Comment Normal [facility] Comment on above: Result Comment: This liquid based ThinPrep(R) pap test was screened with the use of an image guided system. Performed By: #### P APH11A #### [facility] [address] [address] [address] Bradley De Oliveira Note: Comment [facility] Comment on above: Result Comment: The Pap smear is a screening test designed to aid in the detection of premalignant and malignant conditions of the uterine cervix. It is not a diagnostic procedure and should not be used as the sole means of detecting cervical cancer. Both false-positive and false-negative reports do occur. . Performed By: #### P APH11A #### [facility] [address] [address] [address] Bradley De Oliveira Pathologist Provided ICD10 Comment [facility] Comment on above: Result Comment: [id number] Performed By: #### P APH11A #### [facility] [address] [place] [address] Dr. Bradley De Oliveira Performed by: Comment [facility] Comment on above: Result Comment: Kathryn Braun, Supervisor [employer] ([employer]) Performed By: #### P APH11A #### [facility] [address] [place] [address] Dr. Bradley De Oliveira Reflex Criteria: Comment [facility] Comment on above: Result Comment: See below for HPV testing results. . Performed By: #### P APH11A #### [facility] [address] [place] [address] Dr. Bradley De Oliveira Specimen adequacy: Comment [facility] Comment on above: Result Comment: Sati sfactory for evaluation. Endocervical and/or squamous metaplastic cells (endocervical component) are present. Performed By: #### P APH11A #### [facility] [address] [place] [address] Dr. Bradley De Oliveira Vital Signs Date Time Vital Sign Value Performing Clinician Facility 03-18-2023 09:00-0500 Body height 153.67 cm [facility] Other 03-18-2023 09:00-0500 Body mass index (BMI) [Ratio] 28.08 kg/m2 [facility] Other 03-18-2023 09:00-0500 Body weight 66.32 kg Alber Ball Other [facility] Other 03-18-2023 09:00-0500 Diastolic blood pressure 82 mm[Hg] Alber Ball Other [facility] Other 03-18-2023 09:00-0500 Respiratory rate 12 /min Alber Ball Other [facility] Other 03-18-2023 09:00-0500 Systolic blood pressure 132 mm[Hg] Alber Ball Other [facility] Other Encounters Encounter Date Encounter Type Care Provider Facility Start: 05-18-2023 End: 05-18-2023 ambulatory ALEXANDRA M MIRAMONTES Not Available Start: 04-13-2023 End: 04-13-2023 ambulatory ALEXANDRA M MIRAMONTES Not Available Start: 03-18-2023 End: 03-18-2023 ambulatory Alber Ball Other [facility] Other Start: 03-18-2023 Office outpatient vi sit 15 minutes Alber Ball [facility] Start: 01-02-2023 End: 01-02-2023 ambulatory Alber Ball Other [facility] Other Start: 01-02-2023 Telephone encounter Alber Ball [facility] Start: 12-20-2022 End: 12-20-2022 ambulatory Alber Ball Other [facility] Other Start: 12-20-2022 Telephone encounter Alber Ball [facility] Start: 08-02-2022 End: 08-02-2022 ambulatory Alber Ball Other [facility] Other Start: 08-02-2022 Office outpatient vi sit 15 minutes Alber Ball [facility] Start: 05-09-2022 Encounter for preprocedural laboratory examination DR VERNA MCGARRY . [facility] Start: 05-07-2022 End: 05-07-[address] VERNA MCGARRY . Facility:[facility] Start: 05-04-2022 End: 05-05-[address] VERNA MCGARRY . Facility:[facility] Start: 05-04-2022 End: 05-05-2022 Encounter for preprocedural laboratory examination DR VERNA MCGARRY . Facility:[facility] Start: 04-25-2022 Encounter for preprocedural cardiovascular examination DR VERNA MCGARRY . [facility] Start: 04-22-2022 End: 04-23-[address] VERNA MCGARRY . Facility:[facility] Start: 04-22-2022 End: 04-23-2022 Encounter for preprocedural cardiovascular examination DR VERNA MCGARRY . Facility:[facility] Start: 01-26-2022 End: 01-26-[address] VERNA MCGARRY . Facility:[facility] Start: 12-04-2021 Encounter for genera l adult medical examination without abnormal findings DR ALBER ALLEN [facility] Start: 11-28-2021 End: 11-29-[address] ALBER ALLEN Facility:[facility] Start: 11-28-2021 End: 11-29-2021 Encounter for general adult medical examination without abnormal findings DR ALBER ALLEN Facility:[facility] Start: 11-17-2021 End: 11-18-[address] OXANA ORTEGA Facility:[facility] Start: 11-13-2021 Adult health examination Laz sherley Allen Other [facility] Other Start: 11-12-2021 Gynecological examin ation normal Alber Allen Other [facility] Other Start: 11-12-2021 History of abnormal cervical Papanicolaou smear Alber Allen Other [facility] Other Start: 07-22-2021 End: 07-22-[address] VERNA MCGARRY . Facility:[facility] Procedures Date Procedure Procedure Detail Performing Clinician Start: 02-28-2018 General examination of patient Alber Allen Other Depression screening Vickie Allen Other Screening for malign ant neoplasm of breast Alber Ball Other Screening for malign ant neoplasm of colon Alber Ball Other Payers Date Payer Category Payer Unknown [id number] 2.16.84 [id number] 1960 Unknown [id number] 2.16.84 [id number] 1960 Unknown [id number] 2.16.84 [id number] 1960 Unknown [id number] 2.16.84 [id number] 1960 Unknown [id number] 2.16.84 [id number] 1960 Unknown [id number] 2.16.84 [id number] 1960 Unknown [id number] 2.16.84 [id number] 1960 Unknown [id number] 2.16.84 [id number] 1960 Unknown [id number] 2.16.84 [id number] 1959 Unknown [id number] 1958 Unknown [id number] 1958 Unknown [id number] 1958 Unknown [id number] [facility] [[email or web address]] [id number] Social History Date Type Detail Facility Sex Assigned At [facility] Other Evaluation note 03-18-2023 Note Date & Type Note Facility 03-18-2023 Evaluation note Encounter Date Diagnosis Assessment Notes Feb, RHONDA (generalized anxiety disorder) (ICD-10 - F41.1) Healthy diet and exercise. Referral for counseling. Discussed medical treatment but she declines for now. She is coping well but requesting referral for reassurance and advice Feb, Counseling and coordination of care (ICD-10 - Z71.89) Referral sent for counseling [facility] Other Evaluation note 12-20-2022 Note Date & Type Note Facility 12-20-2022 Evaluation note Encounter Date Diagnosis Assessment Notes Dec, Screening for colon cancer (ICD-10 - Z12.11) [facility] Other Evaluation note 08-02-2022 Note Date & Type Note Facility 08-02-2022 Evaluation note Encounter Date Diagnosis Assessment Notes July, Acute non-recurrent maxillary sinusitis (ICD-10 - J01.00) Instructed to use Robitussin or Mucinex for cough, saline or Flonase NS for congestion, Tylenol for pain and fever. [facility] Other Clinical Note 05-07-2022 Note Date & Type Note Facility 05-07-2022 Note OPERATIVE NOTE OPERATION DATE: 05/07/2022 PROCEDURE: vNOTES hysterectomy with bilateral salpingo-oophorectomy. PREOPERATIVE DIAGNOSIS: Uterine prolapse, vaginal pressure. POSTOPERATIVE DIAGNOSIS: Uterine prolapse, vaginal pressure. ANESTHESIA: General. SURGEON: Verna Mcgarry D.O. MANAGER CONTENT: BLESSING [place] URINE OUTPUT: Yellow and clear. BLOOD LOSS: 25 mL. SPECIMEN: Uterus, tubes and ovaries. FINDINGS: Normal appearing ovaries, uterus and tubes. URINE OUTPUT: Yellow and clear. PROCEDURE: Patient was brought back to the operating room where she was given general anesthesia. She was placed in the dorsal lithotomy position, after being prepped and draped in a sterile fashion. A Poole catheter was placed. A weight speculum was placed posterior in the vagina. The cervix was grasped anteriorly and posteriorly with two single tooth tenaculums and placed on traction. A solution of Marcaine, lidocaine and epinephrine and saline was liberally infiltrated into the cervicovaginal junction. The knife was then used to circumscribe the cervicovaginal junction and the posterior cul-de-sac was sharply entered without difficulty. The long weighted duck tail speculum was then placed and the peritoneum was tacked to the vaginal epithelium. We then turned our attention to the uterosacral ligaments which were bilaterally cross clamped, transected and suture ligated, and they were held with hemostats. Attention was then turned to the anterior compartment, where the cervicovaginal junction was similarly divided and the bladder was then sharply and bluntly dissected off the cervix and lower uterine segment, and the anterior cul-de-sac was sharply entered. The epithelium was tacked to the peritoneum. Lateral attachments of the uterus were secured with Delbert clamps and suture ligated. The retractors were then removed and were placed by the path inner ring anteriorly followed by posteriorly. Once the ring was seated, the cap was placed and the laparoscopic ports were placed through this cap and the gas was allowed to insufflate the pelvis. A GynLap was placed posteriorly to facilitate mobilization of the bowel and control bleeding. This was later retrieved. The LigaSure device was used to secure the lateral attachments of the uterus on the left side, including the cardinal ligaments and the uterine vasculature, once the utero-ovarian ligament was reached. We turned attention to the right side, where the LigaSure device was used to fully detach the uterus from the pelvic side wall. The ureters were seen visually; before, during and after the pedicles were created. The ureters were bilaterally in normal locations, peristalsing. On the right side, the fallopian tube was easily divided away from the ovary and removed from the field. The left sided ovary was normal and the tube was left attached to the uterus, and the fimbriated end detached from the ovary. The uterus, both fallopian tubes were removed from the field. The GynLap was also removed from the field. The inner ring and gel ports cap were removed and the vaginal retractors were replaced. Lateral figure of eight sutures were placed bilaterally where bleeding occurred behind the ring and no further sutures were needed. The colpopexy was then carried out, passing a stitch posterior to the vaginal wall, capturing the left uterosacral ligament, going across the posterior peritoneum to the right uterosacral ligament and exiting out the vaginal wall posteriorly. The vaginal cuff was then closed in a single running/locking stitch, using O Monocryl and the uterosacral ligaments were cut. Once the vaginal cuff was fully closed, the uterosacral colpopexy stitch was then tied down tightly, elevating the vaginal cuff to the uterosacral ligaments in a satisfactory manner. The Poole catheter was removed and the patient was awakened and taken recovery in excellent condition. Sponge, lap, needle counts correct x2. [facility] Clinical Note 05-07-2022 Note Date & Type Note Facility 05-07-2022 Note OPERATIVE NOTE OPERATION DATE: 05/15/2022 ADDENDUM: Please note patient had uterus and tubes removed from the abdomen through the vagina. [facility] History general Narrative - Reported 04-21-2022 Note Date & Type Note Facility 04-21-2022 History general N arrative - Reported Type Medical History Scoliosis (and kypho scoliosis), idiopathic Medical History Arthritis of left hip Surgical History Hysterectomy 04/2022 Hospitalization History see surgical history [facility] Other Evaluation note Note Date & Type Note Facility Evaluation note No Information [facility] Other History general Narrative - Reported Note Date & Type Note Facility History general Narrative - Reported Type Medical History Scoliosis (and kyphoscoliosis), idiopathic Medical History Arthritis of left hip [facility] Other Reason for referral (narrative) Note Date & Type Note Facility Reason for referral (narrative) Diagnosis 1 RHONDA (generalized anx iety disorder) (F41.1) Referral Organization [facility] radha Referring Provider First Name Alber Referring Provider Last Name Alejandro Referring Provider Specialty Internal [facility] dicine Referred Organization [facility] Referred Address ,[place], [place],[address] Referred Provider Specialty Social Worke r Clinical Referral Priority Routine General Notes Requesting referral to [facility] counseling: Christa Wilson [employer] Other Summary Purpose Family History No Family History Records FoundNo Family History Records Found Advance Directives No Advanced Directives Records FoundNo Advanced Directives Records Found Additional Source Comments INFORMATION SOURCE (unrecogn ized section and content) DATE CREATED AUTHOR 06/18/2022 [facility] DATE CREATED AUTHOR AUTHOR'S ORGANIZ ATION 05/21/2023 [facility] EPIC REASON FOR VISIT (unrecogniz ed section and content) SORE THROAT COUGH CONGESTION DRAINAGE [phone] ResultsCologuard resultsreferral for counseling FOR RECORDS PERTAINING TO PATIENTS WHO ARE OR HAVE BEEN ENROLLED IN A CHEMICAL DEPENDENCY/SUBSTANCEABUSE PROGRAM, SOME INFORMATION MAY BE OMITTED. This clinical summary was aggregated from multiple sources. Caution should be exercised in using it in the provision of clinical care. This summary normalizes information from multiple sources, and as a consequence, information in this document may materially change the coding, format and clinical context of patient data. In addition, data may be omitted in some cases. CLINICAL DECISIONS SHOULD BE BASED ON THE PRIMARY CLINICAL RECORDS. [facility]. provides no warranty or guarantee of the accuracy or completeness of information in this document.
== END 2023-07-12 21:41 | disposition home or self-care (01) ==
LOC: LAB 21:40
PROVIDERS: PCP Internal Medicine; Visit Provider Obstetrics & Gynecology
DX: Z01.419 Encounter for gynecological examination (general) (routine) without abnormal findings (principal)
CPT/HCPCS: 87624; G0145

== ENCOUNTER 2023-09-13 10:18 | Outpatient (OUT) | payer OTHER, SELFPAY ==
--- NOTE | 2023-09-13 | XR_ITS ---
The [address] [address] Patient Name: REILLY VIVAS MRN: [id number] date: 1960 Sex: F Assigned Patient Location: RAD Current Patient Location: RAD Accession/Order Number: [id number] Exam Date: 09/13/2023 10:30 Report Date: 09/13/2023 11:28 At the request of: NICOLE HERNANDEZ Procedure: XR hip RT 2V w/ pelvis PROCEDURE: XR hip RT 2V w/ pelvis COMPARISON: None. HISTORY: M25.551, Pain in right hip FINDINGS: BONES:No acute fracture or dislocation. Mild right and severe left hip osteoarthritis with joint space narrowing and marginal osteophyte formation. SOFT TISSUES:Negative. No visible soft tissue swelling. EFFUSION:None visible. OTHER: Negative. XR/XR hip RT 2V w/ pelvis IMPRESSION: Mild right and severe left hip osteoarthritis Electronically authenticated by: OXANA ORTEGA Date: 09/13/2023 11:28
== END 2023-09-13 10:19 | disposition home or self-care (01) ==
LOC: RAD 10:19
PROVIDERS: PCP Internal Medicine; Visit Provider Internal Medicine
DX: M25.551 Pain in right hip (principal); M16.0 Bilateral primary osteoarthritis of hip
CPT/HCPCS: 73502

== ENCOUNTER 2023-12-28 10:37 | Outpatient (OUT) | payer OTHER, SELFPAY ==
--- OUTSIDE RECORDS SUMMARY | 2023-12-28 10:43 | XMS_ITS | CCD ---
Author Organization [facility] Care Team Providers Care Tape Deck Installer Name Role Phone CATHERINE ., DR GILLESPIE [...] Unavailable CATHERINE ., DR GILLESPIE Attending Unavailable DE YOUNG, DR OXANA Hernandez Consulting Unavailable BALL, DR RIVEAR Primary Care Unavailable CATHERINE ., DR GILLESPIE Admitting Unavailable CATHERINE ., DR GILLESPIE Attending Unavailable CATHERINE ., DR GILLESPIE Consulting Unavailable ZIEBER, DR KINJAL iDehl Consulting Unavailable ALEJANDRO, DR RIVERA Consulting Unavailable [...] ALLEN Referring Unavailable ALEXANDRA MIRAMONTES Attending Unavailable VERNA MCGARRY Attending Unavailable Allergies Allergy Classification Reported Allergen(s) Allergy Type Date of Onset Reaction(s) Facility (1 source) Amoxicillin Drug Allergy 6 [facility] Repository (3 sources) Penicillin Drug Allergy Unknown [facility] Other (3 sources) Substance with penicillin structure and antibacterial mechanism of action (substance) Drug allergy 1 [facility] Other Medications Current Medications Medication Drug Class(es) Dates Sig (Normalized) Sig (Original) meloxicam 15 mg oral tablet (1 source) Nonsteroidal Anti-inflammatory Drug Start: 09-12-2023 take 15 mg by mouth once daily Meloxicam Active 15 MG PO Daily September 12, 2023 12:00am Completed/Discontinued Medications Medication Drug Class(es) Dates Sig (Normalized) Sig (Original) azithromycin 250 mg oral tablet (5 sources) Macrolide Antimicrobial Start: 08-02-2022 Azithromycin 250 MG as directed Orally daily for 5 days Jan, Not-Taking/PRN tiZANidine 4 mg oral tablet (5 sources) Central alpha-2 Adrenergic Agonist Start: 09-12-2023 End: 09-12-2023 take 0.5-1 tablets by mouth once at bedtime take 0.5-1 tablets by mouth once at bedtime Problems Active Problems Problem Classification Problem Date [...] scoliosis, site unspecified] Onset: 10-20-2016 Chronic Other non-traumatic joint disorders (1 source) Hip pain; Translations: [Pain in right hip] 09-12-2023 Episodic Other nutritional; endocrine; and metabolic disorders [...] Test Name Value Interpretation Reference Range Facility Human papilloma virus 16+18+ 31+33+35+39+45+51+52+56+58+59+66+68 DNA [Presence] in [place] 07-12-2023 HPV 16+18+31+33+35+39+45 +51+52+56+58+59+66+6 8 DNA Probe+sig amp Ql (Cvx) Negative Negative [facility] Comment on above: This nucleic acid am plification test detects fourteen high- risk HPV types (16,18,31,33,35,39,45,51,52,56,58,59,66,68)without differentiation.Performed at: =G - [facility] [address] [id number] Director: Karen Caba MD, Phone: [phone] at: - [facility] [id number] Director: Karen Caba MD, Phone: [phone] No Panel Informationon 07-11 HPV High Risk Other Comment Note . [facility] Comment on above: TESTS RESULT FLAG UN ITS REF RANGE LAB DI AGNOSIS: 02 NEGATIVE FOR INTRAEPITHELIAL LESION OR MALIGNANCY. CELLULAR CHANGES ASSOCIATED WITH ATROPHY ARE PRESENT.Specimen adequacy: 02 Satisfactory for evaluation.Performed by: Lilly Chicas, Category Analyst (ASCP). 02Note: Note 02 The Pap smear is a screening test designed to aid in the detection of premalignant and malignant conditions of the uterine cervix. It is not a diagnostic procedure and should not be used as the sole means of detecting cervical cancer. Both false-positive and false-negative reports do occur.Test Methodology: Note 02 This liquid based ThinPrep(R) pap test was screened with the use of an image guided system.HPV Genotype Reflex Note 02 Criteria not met, HPV Genotype not performed. ----- FLAG LEGEND: L-Low Normal,H-High Normal,LL-Alert Low,HH-Alert High <-Panic Low,>-Panic High,A-Abnormal,AA-Critical Abnormal ---Performed at:02 WB [facility] [address] [place] [address] Karen Caba MD, Reference Lab Test Patient Age Note . [facility] Comment on above: TESTS RESULT FLAG UN ITS REF RANGE LAB Clinician Provided Cytology Information Source.............Vagina No. of containers..01 ThinPrep VialAge Adrián YI Claudia... 31 FLAG LEGEND: L-Low Normal,H-High Normal,LL-Alert Low,HH-Alert High <-Panic Low,>-Panic High,A-Abnormal,AA-Critical Abnormal ---Performed at:01 =G [facility] [place] [address] [place] [address] Karen Caba MD, CBC W MANUAL DIFFon 05-07-19 23 ATYPICAL LYMPH # Normal [facility] Comment on above: Performed By: #### C ANDREW #### [facility] [address] [address] [address] Bradley De Oliveira ATYPICAL LYMPH % Normal [facility] Comment on above: Performed By: #### C BCMAN #### [facility] [address] [place] [address] Dr. Bradley De Oliveira BAND # Normal 0.0-0.3 [facility] Comment on above: Performed By: #### C BCMAN #### [facility] [address] [place] [address] Dr. Bradley De Oliveira BAND % Normal 0-5 [facility] Comment on above: Performed By: #### C BCMAN #### [facility] [address] [place] [address] Dr. Bradley De Oliveira BASOM # 0.00 103/ul Normal 0.00-0.10 [facility] Comment on above: Performed By: #### C BCMAN #### [facility] [address] [place] [address] Dr. Bradley De Oliveira BASOM % 0.0 % Critically low 0.2-2.0 [facility] Comment on above: Performed By: #### C BCMAN #### [facility] [address] [place] [address] Dr. Bradley De Oliveira BLAST # Normal [facility] Comment on above: Performed By: #### C BCMAN #### [facility] [address] [place] [address] Dr. Bradley De Oliveira BLAST % Normal [facility] Comment on above: Performed By: #### C BCMAN #### [facility] [address] [place] [address] Dr. Bradley De Oliveira CORRECTED WBC Normal 4.0-11.0 [facility] Comment on above: Performed By: #### C BCMAN #### [facility] [address] [place] [address] Dr. Bradley De Oliveira EOS # 0.00 103/ul Normal 0.00-0.70 [facility] Comment on above: Performed By: #### C BCMAN #### [facility] [address] [place] [address] Dr. Bradley De Oliveira EOS% 0.0 % Critically low 0.9-7.0 [facility] Comment on above: Performed By: #### C ANDREW #### [facility] [address] [place] [address] Dr. Bradley De Oliveira HCT 40.8 % Normal 36.0-48.0 [facility] Comment on above: Performed By: #### C ANDREW #### [facility] [address] [address] [address] Bradley De Oliveira HGB 14.0 g/dl Normal 12.0-16.0 [facility] Comment on above: Performed By: #### C ANDREW #### [facility] [address] [place] [address] Dr. Bradley De Oliveira LYMPHM # 0.22 103/ul Critically low 1.20-3.80 [facility] Comment on above: Performed By: #### C ANDREW #### [facility] [address] [place] [address] Dr. Bradley De Oliveira LYMPHM% 2.0 % Critically low 20.5-60.0 [facility] Comment on above: Performed By: #### C ANDREW #### [facility] [address] [place] [address] Dr. Bradley De Oliveira MCH 31.3 pg Normal 26.7-34.0 [facility] Comment on above: Performed By: #### C ANDREW #### [facility] [address] [address] [address] Bradley De Oliveira MCHC 34.3 g/dl Normal 29.9-35.2 [facility] Comment on above: Performed By: #### C ANDREW #### [facility] [address] [place] [address] Dr. Bradley De Oliveira MCV 91.3 fL Normal 81.0-99.0 [facility] Comment on above: Performed By: #### C ANDREW #### [facility] [address] [place] [address] Dr. Bradley De Oliveira METAMYELOCYTE # Normal [facility] Comment on above: Performed By: #### C ANDREW #### [facility] [address] [address] [address] Bradley De Oliveira METAMYELOCYTE % Normal [facility] Comment on above: Performed By: #### C ANDREW #### [facility] [address] [address] [address] Bradley De Oliveira MONOM# 0.44 103/ul Normal 0.30-0.80 [facility] Comment on above: Performed By: #### C ANDREW #### [facility] [address] [address] [address] Bradley De Oliveira MONOM% 4.0 % Normal 1.7-12.0 [facility] Comment on above: Performed By: #### C ANDREW #### [facility] [address] [place] [address] Dr. Bradley De Oliveira MPV 9.3 fL Critically low 9.5-13.5 [facility] Comment on above: Performed By: #### C ANDREW #### [facility] [address] [place] [address] Dr. Bradley De Oliveira MYELOCYTE # Normal [facility] Comment on above: Performed By: #### C ANDREW #### [facility] [address] [place] [address] Dr. Bradley De Oliveira MYELOCYTE % Normal [facility] Comment on above: Performed By: #### C ANDREW #### [facility] [address] [place] [address] Dr. Bradley De Oliveira NRBC Normal [facility] Comment on above: Performed By: #### C ANDREW #### [facility] [address] [place] [address] Dr. Bradley De Oliveira PLT 293 103/ul Normal 150-450 [facility] Comment on above: Performed By: #### C ANDREW #### [facility] [address] [place] [address] Dr. Bradley De Oliveira RBC 4.47 106/ul Normal 4.20-5.40 [facility] Comment on above: Performed By: #### C ANDREW #### [facility] [address] [place] [address] Dr. Bradley De Oliveira RDW 12.4 % Normal 11.0-15.0 [facility] Comment on above: Performed By: #### C ANDREW #### [facility] [address] [place] [address] Dr. Bradley De Oliveira SEG # 10.34 103/ul Critically high 1.40-6.50 [facility] Comment on above: Performed By: #### C ANDREW #### [facility] [address] [place] [address] Dr. Bradley De Oliveira SEG % 94.0 % Critically high 43.0-75.0 [facility] Comment on above: Performed By: #### C ANDREW #### [facility] [address] [place] [address] Dr. Bradley De Oliveira WBC 11.0 103/ul Normal 4.0-11.0 [facility] Comment on above: Performed By: #### C ANDREW #### [facility] [address] [place] [address] Dr. Bradley De Oliveira CBC AUTO DIFFon 05-04-2022 BASO # 0.0 103/ul Normal 0.0-0.1 [facility] Comment on above: Performed By: #### P APH11A #### [facility] [address] [place] [address] Dr. Bradley De Oliveira Basophils/100 WBC (Bld) 0.5 % Normal 0.2-2.0 [facility] Comment on above: Performed By: #### P APH11A #### [facility] [address] [place] [address] Dr. Bradley De Oliveira EO # 0.1 103/ul Normal 0.0-0.7 [facility] Comment on above: Performed By: #### P APH11A #### [facility] [address] [place] [address] Dr. Bradley De Oliveira Eosinophils/100 WBC (Bld) 1.7 % Normal 0.9-7.0 [facility] Comment on above: Performed By: #### P APH11A #### [facility] [address] [place] [address] Dr. Bradley De Oliveira Erythrocyte distribution width (RBC) [Ratio] 12.4 % Normal 11.0-15.0 [facility] Comment on above: Performed By: #### P APH11A #### [facility] [address] [place] [address] Dr. Bradley De Oliveira Hematocrit (Bld) [Volume fraction] 39.9 % Normal 36.0-48.0 [facility] Comment on above: Performed By: #### P APH11A #### [facility] [address] [place] [address] Dr. Bradley De Oliveira Hemoglobin (Bld) [Mass/Vol] 14.0 g/dL Normal 12.0-16.0 [facility] Comment on above: Performed By: #### P APH11A #### [facility] [address] [place] [address] Dr. Bradley De Oliveira IG # 0.02 10e3/ul Normal 0.00-0.03 [facility] Comment on above: Performed By: #### P APH11A #### [facility] [address] [place] [address] Dr. Bradley De Oliveira IG % 0.3 % Normal 0.0-0.5 [facility] Comment on above: Performed By: #### P APH11A #### [facility] [address] [place] [address] Dr. Bradley De Oliveira LYMPH # 2.5 103/ul Normal 1.2-3.8 [facility] Comment on above: Performed By: #### P APH11A #### [facility] [address] [place] [address] Dr. Bradley De Oliveira Lymphocytes/100 WBC (Bld) 38.7 % Normal 20.5-60.0 [facility] Comment on above: Performed By: #### P APH11A #### [facility] [address] [place] [address] Dr. Bradley De Oliveira MANUAL DIFF REQ NO Normal [facility] Comment on above: Performed By: #### P APH11A #### [facility] [address] [place] [address] Dr. Bradley De Oliveira MCH (RBC) [Entitic mass] 31.7 pg Normal 26.7-34.0 [facility] Comment on above: Performed By: #### P APH11A #### [facility] [address] [place] [address] Dr. Bradley De Oliveira MCHC (RBC) [Mass/Vol] 35.1 g/dL Normal 29.9-35.2 [facility] Comment on above: Performed By: #### P APH11A #### [facility] [address] [place] [address] Dr. Bradley De Oliveira MCV (RBC) [Entitic vol] 90.3 fL Normal 81.0-99.0 [facility] Comment on above: Performed By: #### P APH11A #### [facility] [address] [place] [address] Dr. Bradley De Oliveira MONO # 0.4 103/ul Normal 0.3-0.8 [facility] Comment on above: Performed By: #### P APH11A #### [facility] [address] [place] [address] Dr. Bradley De Oliveira Monocytes/100 WBC (Bld) 6.1 % Normal 1.7-12.0 [facility] Comment on above: Performed By: #### P APH11A #### [facility] [address] [place] [address] Dr. Bradley De Oliveira NEUT # 3.5 103/ul Normal 1.4-6.5 [facility] Comment on above: Performed By: #### P APH11A #### [facility] [address] [place] [address] Dr. Bradley De Oliveira Neutrophils/100 WBC (Bld) 52.7 % Normal 43.0-75.0 [facility] Comment on above: Performed By: #### P APH11A #### [facility] [address] [place] [address] Dr. Bradley De Oliveira Platelet mean volume (Bld) [Entitic vol] 9.3 fL Critically low 9.5-13.5 [facility] Comment on above: Performed By: #### P APH11A #### [facility] [address] [place] [address] Dr. Bradley De Oliveira PLT 304 103/ul Normal 150-450 [facility] Comment on above: Performed By: #### P APH11A #### [facility] [address] [place] [address] Dr. Bradley De Oliveira RBC 4.42 106/ul Normal 4.20-5.40 [facility] Comment on above: Performed By: #### P APH11A #### [facility] [address] [place] [address] Dr. Bradley De Oliveira WBC 6.6 103/ul Normal 4.0-11.0 [facility] Comment on above: Performed By: #### P APH11A #### [facility] [address] [place] [address] Dr. Bradley De Oliveira TYPE AND SCREENon 05-04-2022 TYPE AND SCREEN Negative Normal [facility] Comment on above: Performed By: #### T NS #### [facility] [address] [place] [address] Dr. Bradley De Oliveira Pap IG,rfx Aptima HPV all pt hon 02-04-2022 . . Normal [facility] Comment on above: Performed By: #### P APH11A #### [facility] [address] [place] [address] Dr. Bradlye De Oliveira DIAGNOSIS: Comment Normal [facility] Comment on above: Result Comment: NEGA TIVE FOR INTRAEPITHELIAL LESION OR MALIGNANCY. Performed By: #### P APH11A #### [facility] [address] [place] [address] Dr. Bradley De Oliveira Methodology: Comment Normal [facility] Comment on above: Result Comment: This liquid based ThinPrep(R) pap test was screened with the use of an image guided system. Performed By: #### P APH11A #### [facility] [address] [place] [address] Dr. Bradley De Oliveira Note: Comment Normal [facility] Comment on above: Result Comment: The Pap smear is a screening test designed to aid in the detection of premalignant and malignant conditions of the uterine cervix. It is not a diagnostic procedure and should not be used as the sole means of detecting cervical cancer. Both false-positive and false-negative reports do occur. . Performed By: #### P APH11A #### [facility] [address] [place] [address] Dr. Bradley De Oliveira Performed by: Comment Normal [facility] Comment on above: Result Comment: Sofía Sauer, Category Analyst (ASCP) Performed By: #### P APH11A #### [facility] [address] [place] [address] Dr. Bradley De Oliveira QC reviewed by: Comment Normal [facility] Comment on above: Result Comment: Stepan Gatica, Supervisory Category Analyst (ASCP) Performed By: #### P APH11A #### [facility] [address] [place] [address] Dr. Bradley De Oliveira Reflex Criteria: Comment Normal [facility] Comment on above: Result Comment: The HPV DNA reflex criteria were not met with this specimen result therefore, no HPV testing was performed. . Performed By: #### P APH11A #### [facility] [address] [place] [address] Dr. Bradley De Oliveira Specimen adequacy: Comment Normal [facility] Comment on above: Result Comment: Sati sfactory for evaluation. Endocervical component may not be distinguished in cases of atrophy. Performed By: #### P APH11A #### [facility] [address] [place] [address] Dr. Bradley De Oilveira CBC AUTO DIFFon 11-28-2021 BASO # 0.0 103/ul Normal 0.0-0.1 [facility] Comment on above: Performed By: #### C BC #### [facility] [address] [place] [address] Dr. Bradley De Oliveira Basophils/100 WBC (Bld) 0.7 % Normal 0.2-2.0 [facility] Comment on above: Performed By: #### C BC #### [facility] [address] [place] [address] Dr. Bradley De Oliveira EO # 0.2 103/ul Normal 0.0-0.7 [facility] Comment on above: Performed By: #### C BC #### [facility] [address] [place] [address] Dr. Bradley De Oliveira Eosinophils/100 WBC (Bld) 3.7 % Normal 0.9-7.0 [facility] Comment on above: Performed By: #### C BC #### [facility] [address] [place] [address] Dr. Bradley De Oliveira Erythrocyte distribution width (RBC) [Ratio] 12.4 % Normal 11.0-15.0 [facility] Comment on above: Performed By: #### C BC #### [facility] [address] [place] [address] Dr. Bradley De Oliveira Hematocrit (Bld) [Volume fraction] 44.2 % Normal 36.0-48.0 [facility] Comment on above: Performed By: #### C BC #### [facility] [address] [place] [address] Dr. Bradley De Oliveira Hemoglobin (Bld) [Mass/Vol] 14.9 g/dL Normal 12.0-16.0 [facility] Comment on above: Performed By: #### C BC #### [facility] [address] [place] [address] Dr. Bradley De Oliveira IG # 0.01 10e3/ul Normal 0.00-0.03 [facility] Comment on above: Performed By: #### C BC #### [facility] [address] [place] [address] Dr. Bradley De Oliveira IG % 0.2 % Normal 0.0-0.5 [facility] Comment on above: Performed By: #### C BC #### [facility] [address] [place] [address] Dr. Bradley De Oliveira LYMPH # 1.7 103/ul Normal 1.2-3.8 [facility] Comment on above: Performed By: #### C BC #### [facility] [address] [place] [address] Dr. Bradley De Oliveira Lymphocytes/100 WBC (Bld) 39.6 % Normal 20.5-60.0 [facility] Comment on above: Performed By: #### C BC #### [facility] [address] [place] [address] Dr. Bradley De Oliveira MANUAL DIFF REQ NO Normal [facility] Comment on above: Performed By: #### C BC #### [facility] [address] [place] [address] Dr. Bradley De Oliveira MCH (RBC) [Entitic mass] 31.6 pg Normal 26.7-34.0 [facility] Comment on above: Performed By: #### C BC #### [facility] [address] [place] [address] Dr. Bradley De Oliveira MCHC (RBC) [Mass/Vol] 33.7 g/dL Normal 29.9-35.2 [facility] Comment on above: Performed By: #### C BC #### [facility] [address] [place] [address] Dr. Bradley De Oliveira MCV (RBC) [Entitic vol] 93.6 fL Normal 81.0-99.0 [facility] Comment on above: Performed By: #### C BC #### [facility] [address] [place] [address] Dr. Bradley De Oliveira MONO # 0.4 103/ul Normal 0.3-0.8 [facility] Comment on above: Performed By: #### C BC #### [facility] [address] [place] [address] Dr. Bradley De Oliveira Monocytes/100 WBC (Bld) 9.5 % Normal 1.7-12.0 [facility] Comment on above: Performed By: #### C BC #### [facility] [address] [place] [address] Dr. Bradley De Oliveira NEUT # 2.0 103/ul Normal 1.4-6.5 [facility] Comment on above: Performed By: #### C BC #### [facility] [address] [place] [address] Dr. Bradley De Oliveira Neutrophils/100 WBC (Bld) 46.3 % Normal 43.0-75.0 [facility] Comment on above: Performed By: #### C BC #### [facility] [address] [address] [address] Bradley De Oliveira Platelet mean volume (Bld) [Entitic vol] 9.3 fL Critically low 9.5-13.5 [facility] Comment on above: Performed By: #### C BC #### [facility] [address] [place] [address] Dr. Bradley De Oliveira PLT 279 103/ul Normal 150-450 [facility] Comment on above: Performed By: #### C BC #### [facility] [address] [place] [address] Dr. Bradley De Oliveira RBC 4.72 106/ul Normal 4.20-5.40 [facility] Comment on above: Performed By: #### C BC #### [facility] [address] [place] [address] Dr. Bradley De Oliveira WBC 4.3 103/ul Normal 4.0-11.0 [facility] Comment on above: Performed By: #### C BC #### [facility] [address] [place] [address] Dr. Bradley De Oliveira LIPID PROFILEon 11-28-2021 CHOL-HDL RATIO NORM SEE BELOW Normal [facility] Comment on above: Result Comment: 3.3 - 4.4 LOW RISK 4.4 - 7.1 AVERAGE RISK 7.1 - 11.0 MODERATE RISK >11.0 HIGH RISK Performed By: #### C MP, LIPID, TSH #### [facility] [address] [place] [address] Dr. Bradley De Oliveira Cholesterol [Mass/Vol] 223 mg/dL Critically high <=200 [facility] Comment on above: Performed By: #### C MP, LIPID, TSH #### [facility] [address] [place] [address] Dr. Bradley De Oliveira Cholesterol in HDL [Mass/Vol] 108 mg/dL Critically high 40-60 [facility] Comment on above: Performed By: #### C MP, LIPID, TSH #### [facility] [address] [place] [address] Dr. Bradley De Oliveira Cholesterol in LDL [Mass/Vol] 100.6 mg/dL Normal [facility] Comment on above: Performed By: #### C MP, LIPID, TSH #### [facility] [address] [address] [address] Bradley De Oliveira Cholesterol.total/Ch olesterol in HDL [Mass ratio] 2.1 {ratio} Normal [facility] Comment on above: Performed By: #### C MP, LIPID, TSH #### [facility] [address] [address] [address] Bradley De Oliveira HDL NORMAL > or = 60 mg/dl - LO W CARDIOVASCULAR RISK <40 mg/dl - HIGH CARDIOVASCULAR RISK Normal [facility] Comment on above: Performed By: #### C MP, LIPID, TSH #### [facility] [address] [place] [address] Dr. Bradley De Oliveira LDL CALC NORMAL SEE BELOW Normal [facility] Comment on above: Result Comment: <100 mg/dl OPTIMAL 100 - 129 mg/dl NEAR OR ABOVE OPTIMAL 130 - 159 mg/dl BORDERLINE HIGH 160 - 189 mg/dl HIGH >190 mg/dl VERY HIGH Performed By: #### C MP, LIPID, TSH #### [facility] [address] [address] [address] Bradley De Oliveira Triglyceride [Mass/Vol] 72 mg/dL Normal <=150 [facility] Comment on above: Performed By: #### C MP, LIPID, TSH #### [facility] [address] [place] [address] Dr. Bradley De Oliveira VLDL CALC 14.4 mg/dL Normal [facility] Comment on above: Performed By: #### C MP, LIPID, TSH #### [facility] [address] [place] [address] Dr. Bradley De Oliveira PROF 14(COMP METB)on 022 Albumin [Mass/Vol] 4.2 g/dL Normal 3.4-5.0 [facility] Comment on above: Performed By: #### C MP, LIPID, TSH #### [facility] [address] [place] [address] Dr. Bradley De Oliveira Albumin/Globulin [Mass ratio] 1.1 {ratio} Normal [facility] Comment on above: Performed By: #### C MP, LIPID, TSH #### [facility] [address] [address] [address] Bradley De Oliveira ALP [Catalytic activity/Vol] 77 U/L Normal 46-116 [facility] Comment on above: Performed By: #### C MP, LIPID, TSH #### [facility] [address] [address] [address] Bradley De Oliveira ALT [Catalytic activity/Vol] 24 U/L Normal 14-59 [facility] Comment on above: Performed By: #### C MP, LIPID, TSH #### [facility] [address] [address] [address] Bradley De Oliveira Anion gap [Moles/Vol] 12.7 mmol/L Normal [facility] Comment on above: Performed By: #### C MP, LIPID, TSH #### [facility] [address] [place] [address] Dr. Bradley De Oliveira AST [Catalytic activity/Vol] 25 U/L Normal 15-37 [facility] Comment on above: Performed By: #### C MP, LIPID, TSH #### [facility] [address] [address] [address] Bradley De Oliveira Bilirubin [Mass/Vol] 0.4 mg/dL Normal 0.2-1.0 [facility] Comment on above: Performed By: #### C MP, LIPID, TSH #### [facility] [address] [address] [address] Bradley De Oliveira Calcium [Mass/Vol] 9.3 mg/dL Normal 8.5-10.1 [facility] Comment on above: Performed By: #### C MP, LIPID, TSH #### [facility] [address] [address] [address] Bradley De Oliveira Chloride [Moles/Vol] 102 mmol/L Normal 98-107 [facility] Comment on above: Performed By: #### C MP, LIPID, TSH #### [facility] [address] [address] [address] Bradley De Oliveira CO2 [Moles/Vol] 28.2 mmol/L Normal 21.0-32.0 [facility] Comment on above: Performed By: #### C MP, LIPID, TSH #### [facility] [address] [address] [address] Bradley De Oliveira Creatinine [Mass/Vol] 0.60 mg/dL Normal 0.55-1.02 [facility] Comment on above: Performed By: #### C MP, LIPID, TSH #### [facility] [address] [address] [address] Bradley De Oliveira EGFR-AF BAHAMIAN >60 Normal >=60 [facility] Comment on above: Performed By: #### C MP, LIPID, TSH #### [facility] [address] [address] [address] Bradley De Oliveira EGFR-NON AF BAHAMIAN >60 Normal >=60 [facility] Comment on above: Performed By: #### C MP, LIPID, TSH #### [facility] [address] [address] [address] Bradley De Oliveira Globulin (S) [Mass/Vol] 3.7 g/dL Normal [facility] Comment on above: Performed By: #### C MP, LIPID, TSH #### [facility] [address] [address] [address] Bradley De Oliveira Glucose [Mass/Vol] 89 mg/dL Normal 74-[address] [facility] Comment on above: Performed By: #### C MP, LIPID, TSH #### [facility] [address] [address] [address] Bradley De Oliveira Potassium [Moles/Vol] 3.9 mmol/L Normal 3.5-5.1 [facility] Comment on above: Performed By: #### C MP, LIPID, TSH #### [facility] [address] [address] [address] Bradley De Oliveira Protein [Mass/Vol] 7.9 g/dL Normal 6.4-8.[address] [facility] Comment on above: Performed By: #### C MP, LIPID, TSH #### [facility] [address] [address] [address] Bradley De Oliveira Sodium [Moles/Vol] 139 mmol/L Normal 136-145 [facility] Comment on above: Performed By: #### C MP, LIPID, TSH #### [facility] [address] [address] [address] Bradley De Oliveira Urea nitrogen [Mass/Vol] 14.0 mg/dL Normal 7.0-18.0 [facility] Comment on above: Performed By: #### C MP, LIPID, TSH #### [facility] [address] [address] [address] Bradley De Oliveira Urea nitrogen/Creatinine [Mass ratio] 23.3 mg/mg Normal [facility] Comment on above: Performed By: #### C MP, LIPID, TSH #### [facility] [address] [place] [address] Dr. Bradley De Oliveira TSHon 11-28-2021 TSH 1.453 uIU/mL Normal 0.358-3.740 [facility] Comment on above: Performed By: #### C MP, LIPID, TSH #### [facility] [address] [place] [address] Dr. Bradley De Oliveira MG MAMM SCREEN 3D DEJA CADon 11-17-2021 MG MAMM SCREEN 3D DEJA CAD Patient: RAEANN VIVAS Exam Date: 11/17/2021 : 1960 Gender:F Ordering : DR VERNA MCGARRY . Admission #: [id number] Family : Order #: [id number] CLICK HERE TO VIEW EXAM RADIOLOGY REPORT [...] Treatments None Family Cancers None LOCATION: [facility] BREAST COMPOSITION: Extremely dense, which lowers [...] Ortega MD on 11/18/2021 at 08:11 Normal [facility] XR DEXA BONE DENSITYon 11-17 [...] - Moderate Fracture Risk Electronically authenticated by: KIJNAL MANNING Date: 2021-11-17 15:54 Normal [facility] Pap IG, rfx Aptima HPV ASCUo n 07-30-2021 . . Normal [facility] Comment on above: Performed By: #### P APH11A #### [facility] [address] [place] [address] Dr. Bradley De Oliveira DIAGNOSIS: Comment Abnormal [facility] Comment on above: Result Comment: EPIT HELIAL CELL ABNORMALITY. ATYPICAL SQUAMOUS CELLS OF UNDETERMINED SIGNIFICANCE (ASC-US). Performed By: #### P APH11A #### [facility] [address] [address] [address] Bradley De Oliveira Electronically signed by: Comment Normal [facility] Comment on above: Result Comment: Minerva Pizarro MD, Pathologist Performed By: #### P APH11A #### [facility] [address] [place] [address] Dr. Bradley De Oliveira HPV Aptima Positive Abnormal Negative [facility] Comment on above: Result Comment: This nucleic acid amplification test detects fourteen high-risk HPV types (16,18,31,33,35,39,45,51,52,56,58,59,66,68) without differentiation. Performed By: #### P APH11A #### [facility] [address] [place] [address] Dr. Bradley De Oliveira Methodology: Comment [facility] Comment on above: Result Comment: This liquid based ThinPrep(R) pap test was screened with the use of an image guided system. Performed By: #### P APH11A #### [facility] [address] [place] [address] Dr. Bradley De Oliveira Note: Comment [facility] Comment on above: Result Comment: The Pap smear is a screening test designed to aid in the detection of premalignant and malignant conditions of the uterine cervix. It is not a diagnostic procedure and should not be used as the sole means of detecting cervical cancer. Both false-positive and false-negative reports do occur. . Performed By: #### P APH11A #### [facility] [address] [place] [address] Dr. Bradley De Oliveira Pathologist Provided ICD10 Comment [facility] Comment on above: Result Comment: R87. [id number] Performed By: #### P APH11A #### [facility] [address] [place] [address] Dr. Bradley De Oliveira Performed by: Comment Normal [facility] Comment on above: Result Comment: Kathryn Braun, Category Analyst (ASCP) Performed By: #### P APH11A #### [facility] [address] [place] [address] Dr. Bradley De Oliveira Reflex Criteria: Comment Normal [facility] Comment on above: Result Comment: See below for HPV testing results. . Performed By: #### P APH11A #### [facility] [address] [place] [address] Dr. Bradley De Oliveira Specimen adequacy: Comment [facility] Comment on above: Result Comment: Sati sfactory for evaluation. Endocervical and/or squamous metaplastic cells (endocervical component) are present. Performed By: #### P APH11A #### [facility] [address] [place] [address] Dr. Bradley De Oliveira Vital Signs Date Time Vital Sign Value Performing Clinician Facility 09-12-2023 15:46-0400 Body height 153.67 cm [facility] 09-12-2023 15:46-0400 Body mass index (BMI) [Ratio] 28.6 kg/m2 [facility] 09-12-2023 15:46-0400 Body weight 67.69 kg [facility] 09-12-2023 15:46-0400 Diastolic blood pressure 81 mm[Hg] [facility] 09-12-2023 15:46-0400 Heart rate 78 /min [facility] 09-12-2023 15:46-0400 Respiratory rate 12 /min [facility] 09-12-2023 15:46-0400 Systolic blood pressure 118 mm[Hg] [facility] 03-18-2023 09:00-0500 Body height 153.67 cm Alber Ball Other [facility] Other 03-18-2023 09:00-0500 Body mass index (BMI) [Ratio] 28.08 kg/m2 Alber Ball Other [facility] Other 03-18-2023 09:00-0500 Body weight 66.32 kg Alber Ball Other [facility] Other 03-18-2023 09:00-0500 Diastolic blood pressure 82 mm[Hg] Alber Ball Other [facility] Other 03-18-2023 09:00-0500 Respiratory rate 12 /min Alber Ball Other [facility] Other 03-18-2023 09:00-0500 Systolic blood pressure 132 mm[Hg] Alber Ball Other [facility] Other Encounters Encounter Date Encounter Type Care Provider Facility Start: 09-12-2023 End: 09-12-2023 ambulatory [facility] Work Phone: Start: 09-12-2023 End: 09-12-2023 Patient encounter procedure [facility] Work Phone: Start: 07-12-2023 End: 07-12-2023 ambulatory VERNA MCGARRY Not Available Start: 07-12-2023 Non-patient / Non-visit [facility] Work Phone: Start: 05-18-2023 End: 05-18-2023 ambulatory ALEXANDRA NEGRONELL Not Available Start: 04-13-2023 End: 04-13-2023 ambulatory ALEXANDRA Galan MIRAMONTES Not Available Start: 03-18-2023 End: 03-18-2023 ambulatory Alber Allen Other [facility] Other Start: 03-18-2023 Office outpatient vi sit 15 minutes Alber Allen [facility] Start: 01-02-2023 End: 01-02-2023 ambulatory Alber Allen Other [facility] Other Start: 01-02-2023 Telephone encounter Alber Allen [facility] Start: 12-20-2022 End: 12-20-2022 ambulatory Alber Allen Other [facility] Other Start: 12-20-2022 Telephone encounter Alber Allen [facility] Start: 08-02-2022 End: 08-02-2022 ambulatory Alber Allen Other [facility] Other Start: 08-02-2022 Office outpatient vi sit 15 minutes Alber Alejandro [facility] Start: 05-09-2022 Encounter for preprocedural laboratory examination DR VERNA MCGARRY . [facility] Start: 05-07-2022 End: 05-07-[address] VERNA MCGARRY . Facility:[facility] Start: 05-04-2022 End: 05-05-[address] VERNA MCGARRY . Facility:[facility] Start: 05-04-2022 End: 05-05-2022 Encounter for preprocedural laboratory examination DR VERNA MCGARRY . Facility:[facility] Start: 04-25-2022 Encounter for preprocedural cardiovascular examination DR VERNA MCGARRY . [facility] Start: 04-22-2022 End: 04-23-[address] VERNA MCGARRY . Facility:[facility] Start: 04-22-2022 End: 04-23-2022 Encounter for preprocedural cardiovascular examination DR VERNA MCGARRY . Facility:[facility] Start: 01-26-2022 End: 01-26-[address] VERNA MCGARRY . Facility:[facility] Start: 12-04-2021 Encounter for genera l adult medical examination without abnormal findings DR ALBER ALLEN [facility] Start: 11-28-2021 End: 11-29-[address] ALBER ALLEN Facility:[facility] Start: 11-28-2021 End: 11-29-2021 Encounter for general adult medical examination without abnormal findings DR ALBER ALLEN Facility:[facility] Start: 11-17-2021 End: 11-18-[address] OXANA ORTEGA Facility:[facility] Start: 11-13-2021 Adult health examination Laz Allen Other [facility] Other Start: 11-12-2021 Gynecological examin ation normal Alber Allen Other [facility] Other Start: 11-12-2021 History of abnormal cervical Papanicolaou smear Alber Allen Other [facility] Other Start: 07-22-2021 End: 07-22-[address] VERNA MCGARRY . Facility:[facility] Procedures Date Procedure Procedure Detail Performing Clinician Start: 02-28-2018 General examination of patient Alber Allen Other Depression screening Vickie Allen Other Screening for malign ant neoplasm of breast Alber Allen Other Screening for malign ant neoplasm of colon Alber Allen Other Plan of Treatment Date Care Activity Detail Author XR Hip - right 2 Views [facility] Payers Date Payer Category Payer Unknown [id number] 2.16.84 [id number] 1960 Unknown [id number] 2.16.84 [id number] 1960 Unknown [id number] 2.16.84 [id number] 1960 Unknown [id number] 2.16.84 [id number] 1960 Unknown [id number] 2.16.84 [id number] 1960 Unknown [id number] 2.16.84 [id number] 1960 Unknown [id number] 2.16.84 [id number] 1960 Unknown [id number] 2.16.84 [id number] 1960 Unknown [id number] 2.16.84 [id number] 1960 Unknown [id number] 2.16.84 [id number] 1959 Unknown [id number] 1958 Unknown [id number] 1958 Unknown [id number] 1958 Unknown [id number] [facility] [id number] Unknown J[facility] [id number] Social History Date Type Detail Facility Sex Assigned At [facility] Other Start: [facility]12-[facility]23 [facility] Start: 1960 Sex Assigned At Female F [facility] Evaluation note 03-18-2023 Note Date & Type [...] (ICD-10 - Z71.89) Referral sent for counseling [facility] Other Evaluation note 12-20-2022 Note Date & Type Note Facility 12-20-2022 Evaluation note Encounter Date Diagnosis Assessment Notes Dec, Screening for colon cancer (ICD-10 - Z12.11) [facility] Other Evaluation note 08-02-2022 Note Date & Type Note Facility 08-02-2022 Evaluation note Encounter Date Diagnosis Assessment Notes July, Acute non-recurrent maxillary sinusitis (ICD-10 - J01.00) Instructed to use Robitussin or Mucinex for cough, saline or Flonase NS for congestion, Tylenol for pain and fever. [facility] Other Clinical Note 05-07-2022 Note Date & Type Note Facility 05-07-2022 Note OPERATIVE NOTE OPERATION DATE: 05/07/2022 PROCEDURE: vNOTES hysterectomy with bilateral salpingo-oophorectomy. PREOPERATIVE DIAGNOSIS: Uterine prolapse, vaginal pressure. POSTOPERATIVE DIAGNOSIS: Uterine prolapse, vaginal pressure. ANESTHESIA: General. SURGEON: Verna Mcgarry D.O. DOWEL INSPECTOR: BLESSING [place] URINE OUTPUT: Yellow and clear. [...] Sponge, lap, needle counts correct x2. [facility] Clinical Note 05-07-2022 Note Date & Type Note Facility 05-07-2022 Note OPERATIVE NOTE OPERATION DATE: 05/15/2022 ADDENDUM: Please note patient had uterus and tubes removed from the abdomen through the vagina. [facility] History general Narrative - Reported 04-21-2022 Note Date & Type Note Facility 04-21-2022 History general N arrative - Reported Type Medical History Scoliosis (and kypho scoliosis), idiopathic Medical History Arthritis of left hip Surgical History Hysterectomy 04/2022 Hospitalization History see surgical history [facility] Other Evaluation note Note Date & Type Note Facility Evaluation note No Information [facility] Other Evaluation note Note Date & Type Note Facility Evaluation note No assessment information [facility] Work Phone: History general Narrative - Reported Note Date & Type Note Facility History general Narrative - Reported Type Medical History Scoliosis (and kyphoscoliosis), idiopathic Medical History Arthritis of left hip [facility] Other Reason for referral (narrative) Note Date & Type Note Facility Reason for referral (narrative) Diagnosis 1 RHONDA (generalized anx iety disorder) (F41.1) Referral Organization [facility] Referring Provider First Name Alber Referring Provider Last Name Alejandro Referring Provider Specialty Internal Me dicine Referred Organization [facility] Referred Address ,[place], [place],[address] Referred Provider Specialty Social Worke r Clinical Referral Priority Routine General Notes Requesting referral to [facility] counseling: Christa Wilson [facility] Other Summary Purpose Family History Relationship Condition Age at Onset Recorded Date/T padmini father Diabetes mellitus Unknown Heart disease Unknown Unknown Not Specified Diabetes mellitus Unknown Hypertension Unknown Advance Directives Advance Directive Response Recorded Date/ Time Advance Directives No September 11 3:32pm Chief Complaint and Reason for Visit Chief Complaint bilateral hip pain Additional Source Comments INFORMATION SOURCE (unrecogn ized section and content) DATE CREATED AUTHOR 06/18/2022 [facility] DATE CREATED AUTHOR AUTHOR'S ORGANMILDRED ATION 07/13/2023 [facility] EPIC REASON FOR VISIT (unrecogniz ed section and content) SORE THROAT COUGH CONGESTION DRAINAGE [phone] [employer] resultsreferral for counseling Care Teams (unrecognized sec tion and content) Team Status: Active Member Role Status Dates Alber Allen DO Primary Care Provider Active Team Status: Active Member Role Status Dates Alber Allen DO Primary Care Provider Active Start: July 12, 2023 Verna Mcgarry Attending Provider Active Start: 2023 Team Status: Inactive Member Role Status Dates Alber Allen DO Primary Care Provide r, Attending Provider Active Start: September 12, 2023 End: September 12, 2023 Goals (unrecognized section and content) Goals may be documented in a n alternate section FOR RECORDS PERTAINING TO PATIENTS WHO ARE [...] BE BASED ON THE PRIMARY CLINICAL RECORDS. [facility]. provides no warranty or guarantee of the accuracy or completeness of information in this document.
[2023-12-28 10:58] LABS: Basophils Percent Auto 0.8 % (0.2-2.0); Eosinophils Absolute Auto 0.1 10^3/uL (0.0-0.7); Eosinophils Percent Auto 1.4 % (0.9-7.0); Hematocrit 42.9 % (36.0-48.0); Hemoglobin 14.6 g/dL (12.0-16.0); Lymphocytes Absolute Auto 1.9 10^3/uL (1.2-3.8); Lymphocytes Percent Auto 36.9 % (20.5-60.0); Mean Corpuscular Hemoglobin 31.7 pg (26.7-34.0); Mean Corpuscular Volume 93.1 fL (81.0-99.0); Mean Platelet Volume 9.5 fL (9.5-13.5); Monocytes Absolute Auto 0.4 10^3/uL (0.3-0.8); Monocytes Percent Auto 7.3 % (1.7-12.0); Neutrophils Absolute Auto 2.8 10^3/uL (1.4-6.5); Neutrophils Percent Auto 53.6 % (43.0-75.0); Platelet Count 276 10^3/uL (150-450); Red Blood Count 4.61 10^6/uL (4.20-5.40); Red Cell Distribution Width 12.2 % (11.0-15.0); White Blood Count 5.2 10^3/uL (4.0-11.0)
[2023-12-28 11:44] LABS: Alanine Aminotransferase 22 U/L (14-59); Albumin Globulin Ratio 1.1; Alkaline Phosphatase 77 U/L (46-116); Aspartate Amino Transferase 22 U/L (15-37); BUN Creatinine Ratio 17.6; Bilirubin Total 0.5 mg/dL (0.2-1.0); Calcium 9.7 mg/dL (8.5-10.1); Carbon Dioxide 25.4 mmol/L (21.0-32.0); Chloride 102 mmol/L (98-107); Chol HDL Ratio 2.1; Cholesterol 233 mg/dL (<=200); Estimated GFR (African America >60 (>=60 mL/min/1.73m^2); Estimated GFR (Non-African Ame >60 (>=60 mL/min/1.73m^2); Globulin 3.7 g/dL; Glucose 91 mg/dL (74-106); HDL Cholesterol 110 mg/dL (40-60); Potassium 3.4 mmol/L (3.5-5.1); Sodium 137 mmol/L (136-145); Total Protein 7.7 g/dL (6.4-8.2); Triglycerides 76 mg/dL (<=150); VLDL CHOLESTEROL 15.2 mg/dL
[2023-12-28 12:08] LABS: Thyroid Stimulating Hormone 2.311 uIU/mL (0.358-3.740)
[2023-12-28 12:12] LABS: Estimated Average Glucose 103 mg/dL; Glycohemoglobin A1C 5.2 % (4.5-6.2)
== END 2023-12-28 10:38 | disposition home or self-care (01) ==
LOC: LAB 10:38
PROVIDERS: PCP Internal Medicine; Visit Provider Internal Medicine
DX: Z00.00 Encounter for general adult medical examination without abnormal findings (principal); E55.9 Vitamin D deficiency, unspecified; R53.83 Other fatigue
CPT/HCPCS: 36415; 80053; 80061; 82306; 83036; 84443; 85025

== ENCOUNTER 2024-04-23 10:45 | Outpatient (OUT) | payer OTHER, SELFPAY ==
--- NOTE | 2024-04-23 10:47 | MM_ITS ---
Patient Name: REILLY VIVAS MR#: [id number] : 1960 Exam Date: 04/23/2024 Ordering Doctor: DR Tereso Mcgarry . RADIOLOGY REPORT PROCEDURE: MM TOMOSYNTHESIS SCREENING BI COMPARISON: MM TOMOSYNTHESIS SCREENING BI, 02/17/2023. MG MAMM SCREEN 3D DEJA CAD, 11/17/2021. MG MAMM SCREEN 3D DEJA CAD, 10/23/2020. MG MAMM DEJA SCRN W CAD DIG, 11/29/2012. INDICATIONS: Screening Calculator Name NCI Breast Cancer Risk Assessment Tool 5 Year Breast Cancer Risk 1.90% Lifetime Breast Cancer Risk 8.60% Personal Breast Cancer No Personal Ovarian Cancer No Treatments None Family Cancers None LOCATION: [facility] BREAST COMPOSITION: The breasts are extremely dense, which lowers the sensitivity of mammography. FINDINGS: DIAGNOSTIC CATEGORY 1--NEGATIVE. RIGHT BREAST: No significant suspicious finding. No significant change has occurred. LEFT BREAST: No significant suspicious finding. No significant change has occurred. RECOMMENDATIONS: ROUTINE MAMMOGRAM AND CLINICAL EVALUATION IN 12 MONTHS. PLEASE NOTE: A NORMAL MAMMOGRAM DOES NOT EXCLUDE THE POSSIBILITY OF BREAST CANCER. A CLINICALLY SUSPICIOUS PALPABLE LUMP SHOULD BE BIOPSIED. Dictated by: Migue Collazo M.D. on 04/24/2024 at 16:15 Approved by: Migue Collazo M.D. on 04/24/2024 at 16:17
== END 2024-04-23 10:46 | disposition home or self-care (01) ==
LOC: MAMMO 10:45
PROVIDERS: PCP Internal Medicine; Visit Provider Obstetrics & Gynecology
DX: Z12.31 Encounter for screening mammogram for malignant neoplasm of breast (principal)
CPT/HCPCS: 77063; 77067

== ENCOUNTER 2024-07-17 13:02 | Outpatient (REF) | payer OTHER, SELFPAY ==
[2024-07-19 12:09] LABS: Age Gdln ACOG Testing Note (.); HPV Aptima Negative (Negative); IGP, Aptima HPV, rfx 16/18,45 Note (.)
== END 2024-07-17 13:03 | disposition home or self-care (01) ==
LOC: LAB 13:02
PROVIDERS: PCP Internal Medicine; Visit Provider Nurse Practitioner Family
DX: Z01.419 Encounter for gynecological examination (general) (routine) without abnormal findings (principal)
CPT/HCPCS: 87624; 88175

== ENCOUNTER 2024-08-06 14:17 | Outpatient (OUT) | payer OTHER, SELFPAY | END 2024-08-06 14:18 | disposition home or self-care (01) | LOC: RAD 14:17 | PROVIDERS: PCP Internal Medicine; Visit Provider Obstetrics & Gynecology | DX: M85.80 Other specified disorders of bone density and structure, unspecified site (principal); Z78.0 Asymptomatic menopausal state; M81.0 Age-related osteoporosis without current pathological fracture | CPT/HCPCS: 77080 ==

== ENCOUNTER 2025-01-07 06:44 | Outpatient (OUT) | payer OTHER, SELFPAY ==
--- OUTSIDE RECORDS SUMMARY | 2025-01-07 06:48 | XMS_ITS | CCD ---
Author Organization [facility] CliniSynv Care Team Providers Care Net Lead Developer Name Role Phone MALGORZATA ., DR GILLESPIE Attending Unavailable MALGORZATA ., DR GILLESPIE Consulting Unavailable BALL, DR RIVERA Primary Care Unavailable MALGORZATA ., DR GILLESPIE Admitting Unavailable SHARP, YODIT Consulting Unavailable GEOVANY II, NELSON Consulting Unavailable MALGORZATA ., DR GILLESPIE Attending Unavailable MALGORZATA ., DR GILLESPIE Consulting Unavailable BALL, DR RIVERA Primary Care Unavailable MALGORZATA ., DR GILLESPIE Admitting Unavailable MALGORZATA ., DR GILLESPIE Attending Unavailable BALL, DR RIVERA Primary Care Unavailable MALGORZATA ., DR GILLESPIE Consulting Unavailable MALGORZATA ., DR GILLESPIE Admitting Unavailable MALGORZATA ., DR GILLESPIE Consulting Unavailable BALL, DR RIVERA Primary Care Unavailable MALGORZATA ., DR GILLESPIE Admitting Unavailable MALGORZATA ., DR GILLESPIE Attending Unavailable [place], DR OXANA Hernandez Consulting Unavailable BALL, DR RIVERA Primary Care Unavailable MALGORZATA ., DR GILLESPIE Admitting Unavailable MALGORZATA ., DR GILLESPIE Attending Unavailable MALGORZATA ., DR GILLESPIE Consulting Unavailable ZIEBER, DR MIGUE Diehl Consulting Unavailable BALL, DR RIVERA Consulting Unavailable BALL, DR RIVERA Primary Care Unavailable BALL, DR RIVERA Admitting Unavailable BALL, DR RIVERA Attending Unavailable MALGORZATA ., DR GILLESPIE Consulting Unavailable MALGORZATA ., DR GILLESPIE Attending Unavailable MALGORZATA ., DR GILLESPIE Consulting Unavailable BALL, DR RIVERA Primary Care Unavailable MALGORZATA ., DR GILLESPIE Admitting Unavailable Alber Allen Unavailable Alber Allen MD Primary Care Provider Alber Allen MD Primary Care Provider ANNIKA WILKINS Attending Unavailable ARIANNA MATUTE Attending Unavailable Alber Allen DO Primary Care Provider Alber Allen DO Primary Care Provider Alber Allen DO Provider Allergies Allergy Classification Reported Allergen(s) Allergy Type Date of Onset Reaction(s) Facility (1 source) Amoxicillin Drug Allergy 12-05-19 16 [facility] Repository (3 sources) Penicillin Drug Allergy Unknown [facility] Other (3 sources) Substance with penicillin structure and antibacterial mechanism of action (substance) Drug allergy 10-30-19 11 PENIC[facility]INS [facility] Other (8 sources) Penicillins Drug Intolerance 07-05-19 24 [facility] Work Phone: Medications Current Medications Medication Drug Class(es) Dates Sig (Normalized) Sig (Original) ascorbic acid 60 mg / cholecalciferol 0.01 mg / folic acid 0.3 mg / niacin 13.5 mg / riboflavin 1.2 mg / sodium fluoride 0.55 mg / thiamine 1.05 mg / vitamin a 0.75 mg / vitamin b12 0.0045 mg / vitamin b6 1.05 mg / vitamin e 6.75 mg chewable tablet (8 sources) Nicotinic Acid, Vitamin A, Vitamin B12, Vitamin D, Vitamin C Pediatric Multivitamins-Fl (MultiVitamin + Fluoride) 0.25 MG chewable tablet Multivitamin Active calcium carbonate 1500 mg oral tablet (8 sources) calcium carbonat e 1500 (600 Ca) MG tablet every 12 (twelve) hours Active Creatine (7 sources) CREATINE PO Take by mouth Active fluocinonide 0.5 mg/ml topical solution (7 sources) Corticosteroid Start: 01-23-2024 fluocinonide (Lidex) 0.05 % external solution Indications: Other seborrheic dermatitis Apply to affected areas on the scalp, up to twice a day when flared, 30 day supply 60 mL 11 01/23/2024 Active meloxicam 15 mg oral tablet (7 sources) Nonsteroidal Anti-inflammatory Drug Start: 11-11-2023 take 1 tablet by mouth once daily Meloxicam 15 mg tablet Active 0 .ROUTE .COMPLEX 17 08November 11, 2023 7:14am TAKE 1 TABLET BY MOUTH EVERY DAY Complies with drug therapy Start: 09-12-2023 End: 11-11-2023 take 1 tablet by mouth once daily Meloxicam 15 mg tablet Discontinued 15 MG PO Daily 30 19 04September 12, 2023 12:00am November 11, 2023 7:14am Multivitamin preparation (1 source) Start: 2023 take 1 tablet by mouth once daily Multivitamin Active 1 TAB PO Daily 2023 12:00am Multivitamin tablet (2 sources) Start: 2023 take 1 tablet by mouth once daily Multivitamin tablet Active 1 TAB PO Daily 2023 12:00am Complies with drug therapy Start: 2023 take 1 tablet by marissa th once daily Multivitamin tablet Active 1 TAB PO Daily December 27, 2023 11:00pm Completed/Discontinued Medications Medication Drug Class(es) Dates Sig (Normalized) Sig (Original) azithromycin 250 mg oral tablet (8 sources) Macrolide Antimicrobial Start: 02-20-2024 End: 01-04-2025 Azithromycin 250 mg tablet Discontinued 250 MG PO .COMPLEX 6 5 0 May 15, 2024 1:00am January 04, 2025 11:08am 2 tabs on first day followed by 1 tab on days 2-5 Start: 08-02-2022 Azithromycin 2 50 MG as directed Orally daily for 5 days Jan, Not-Taking/PRN tiZANidine 4 mg oral tablet (8 sources) Central alpha-2 Adrenergic Agonist Start: 09-12-2023 End: 09-12-2023 take 0.5-1 tablets by mouth once at bedtime Start: 09-12-2023 End: 09-12-2023 take 0.5-1 tablets by mouth once at bedtime take 0.5-1 tablets by mouth once at bedtime Problems Active Problems Problem Classification Problem Date Documented Date Episodic/Chronic Abdominal pain (2 sources) Pelvic and perineal pain; Translations: [Flank pain] Onset: 05-18-2022 01-04-2025 Episodic Acute bronchitis (5 sources) Acute bronchitis; Translations: [Acute bronchitis due to other specified organisms] 02-20-2024 Episodic Administrative/social admission (1 source) Other specified [...] communicable diseases] Onset: 01-30-2022 Resolved: 07-21-2021 Episodic Malaise and fatigue (2 sources) Fatigue; Translations: [Other fatigue] 02-20-2024 Episodic Osteoarthritis (13 sources) Unilateral primary osteoarthritis, left hip; Translations: [Arthritis of left hip] Onset: 05-18-2022 12-25-2023 Chronic Osteoporosis (2 sources) Osteoporosis; Translations: [Age-related osteoporosis without current pathological fracture] 01-02-2025 Chronic Other bone disease and musculoskeletal deformities (10 sources) Idiopathic scoliosis AND/OR kyphoscoliosis; Translations: [Other idiopathic scoliosis, site unspecified] Onset: 10-20-2016 Chronic Other bone disease and musculoskeletal deformities (4 sources) Idiopathic kyphoscoliosis; Translations: [Other idiopathic scoliosis, site unspecified] 09-12-2023 Chronic Other bone disease and musculoskeletal deformities (1 source) Other idiopathic scoliosis, site unspecified; Translations: [Scoliosis [and kyphoscoliosis], idiopathic] 2023 Chronic Other circulatory disease (2 sources) Spider nevus; Translations: [Nevus, non-neoplastic] 01-23-2024 Episodic Other inflammatory condition of skin (5 sources) Seborrheic dermatitis; Translations: [Other seborrheic dermatitis] Onset: 10-20-2016 01-23-2024 Episodic Other lower respiratory disease (2 sources) Cough; Translations: [Cough] 02-20-2024 Episodic Other non-traumatic joint disorders (3 sources) Hip pain; Translations: [Pain in right hip] 09-12-2023 Episodic Other nutritional; endocrine; and metabolic disorders (3 sources) Overweight; Translations: [Overweight] Episodic Other screening for suspected conditions (not mental disorders or infectious disease) (11 sources) Encounter for screening for malignant neoplasm of cervix; Translations: [Encounter for screening mammogram for malignant neoplasm of breast] Onset: 11-18-2021 Resolved: 07-21-2021 Episodic Other skin disorders (2 sources) Seborrheic keratosis; Translations: [Other seborrheic keratosis] 01-23-2024 Episodic Other upper respiratory disease (3 sources) Vocal cord paralysis; Translations: [Paralysis of vocal cords and larynx, unilateral] Chronic Other upper respiratory infections (12 sources) Acute maxillary sinusitis, unspecified; Translations: [Acute laryngitis] Onset: 01-30-2015 Episodic Prolapse of female genital organs (5 sources) Incomplete uterovaginal prolapse; Translations: [INCOMPLETE UTEROVAGINAL PROLAPSE] Onset: 05-07-2022 Chronic Residual codes; unclassified (5 sources) Asymptomatic menopausal state; Translations: [ASYMPTOMATIC MENOPAUSAL STATE] Onset: 11-17-2021 Episodic Residual codes; unclassified (5 sources) Postmenopausal state; Translations: [Asymptomatic menopausal state] 07-17-2024 Episodic Spondylosis; intervertebral disc disorders; other back problems (1 source) Backache; Translations: [Dorsalgia, unspecified] 01-04-2025 Episodic Past or Other Problems Problem Classification Problem Date Documented Da te Episodic/Chronic Other bone disease and musculoskeletal deformities (1 source) Other specified disorders of bone density and structure, other site; Translations: [OTH D/O BONE DEN STRUCT OTH SITE] Onset: 11-18-2021 Episodic Other non-traumatic joint disorders (3 sources) Arthralgia of the pelvic region and thigh; Translations: [Pain in joint, pelvic region and thigh] Onset: 10-20-2016 Episodic Other nutritional; endocrine; and metabolic disorders (3 sources) Body mass index 25-29 - overweight; Translations: [Body mass index (BMI) 26.0-26.9, adult] Onset: 10-20-2016 Episodic Results Test Name Value Interpretation Reference Range Facility IGP,APTIMA HPV,AGE GDLNon AGE GDLN ACOG TESTING Note . [facility] Comment on above: TESTS RESULT FLAG UN ITS REF RANGE LAB Clinician Provided Cytology Information Source.............Vagina No. of containers..01 ThinPrep Vial Age Algo ACOG Claudia... 30-65 01 FLAG LEGEND: L-Low Normal,H-High Normal,LL-Alert Low,HH-Alert High <-Panic Low,>-Panic High,A-Abnormal,AA-Critical Abnormal Performed at: 01 =[address] [address] Karen Caba MD, HPV APTIMA Negative Negative [facility] Comment on above: This nucleic acid am plification test detects fourteen high- risk HPV types (16,18,31,33,35,39,45,51,52,56,58,59,66,68) without differentiation. Performed at: =[facility] [id number] Cane Cutter: Karen Caba MD, Phone: [phone] Performed at: [address] [id number] Cane Cutter: Karen Caba MD, Phone: [phone] IGP, APTIMA HPV, RFX 16/18,45 Note . [facility] Comment on above: TESTS RESULT FLAG UN ITS REF RANGE LAB DIAGNOSIS: 02 NEGATIVE FOR INTRAEPITHELIAL LESION OR MALIGNANCY. CELLULAR CHANGES ASSOCIATED WITH ATROPHY ARE PRESENT. Specimen adequacy: 02 Satisfactory for evaluation. Endocervical component may not be distinguished in cases of atrophy. Performed by: Lilly Strange Cutter Operator Brick ([facility]) . 02 Note: Note 02 The Pap smear is a screening test designed to aid in the detection of premalignant and malignant conditions of the uterine cervix. It is not a diagnostic procedure and should not be used as the sole means of detecting cervical cancer. Both false-positive and false-negative reports do occur. Test Methodology: Note 02 This liquid based ThinPrep(R) pap test was screened with the use of an image guided system. HPV Genotype Reflex Note 02 Criteria not met, HPV Genotype not performed. FLAG LEGEND: L-Low Normal,H-High Normal,LL-Alert Low,HH-Alert High <-Panic Low,>-Panic High,A-Abnormal,AA-Critical Abnormal Performed at: [address] [address] Karen Caba MD, SPATULA-ALONE VAGINA CLINISYNC [facility] e MM TOMOSYNTHESIS SCREENING B [facility] 04-24-2024 [place] [address] Mammography Report Signed Patient: RAEANN VIVAS MR#: [id number] : 1960 Acct:[id number] Age/Sex: 63 / F ADM Date: 04/23/24 Loc: MAMMO Attending Dr: Verna Mcgarry D.O. Ordering Physician: Verna Mcgarry D.O. Results: Date of Service: 04/23/24 Follow Up: Procedure(s): MM tomosynthesis screening BI Accession Number(s): [id number] cc: Alber Allen D.O.; Verna Mcgarry D.O. Patient Name: RAEANN VIVAS MR#: [id number] : 1960 Exam Date: 04/23/2024 Ordering Doctor: DR Verna Mcgarry . RADIOLOGY REPORT PROCEDURE: MM TOMOSYNTHESIS SCREENING BI COMPARISON: MM TOMOSYNTHESIS SCREENING BI, 02/17/2023. MG MAMM SCREEN 3D DEJA CAD, 11/17/2021. MG MAMM SCREEN 3D DEJA CAD, 10/23/2020. MG MAMM DEJA SCRN W CAD DIG, 11/29/2012. INDICATIONS: Screening Calculator Name NCI Breast Cancer Risk Assessment Tool 5 Year Breast Cancer Risk 1.90% Lifetime Breast Cancer Risk 8.60% Personal Breast Cancer No Personal Ovarian Cancer No Treatments None Family Cancers None LOCATION: [facility] BREAST COMPOSITION: The breasts are extremely dense, which lowers the sensitivity of mammography. FINDINGS: DIAGNOSTIC CATEGORY 1--NEGATIVE. RIGHT BREAST: No significant suspicious finding. No significant change has occurred. LEFT BREAST: No significant suspicious finding. No significant change has occurred. RECOMMENDATIONS: ROUTINE MAMMOGRAM AND CLINICAL EVALUATION IN 12 MONTHS. PLEASE NOTE: A NORMAL MAMMOGRAM DOES NOT EXCLUDE THE POSSIBILITY OF BREAST CANCER. A CLINICALLY SUSPICIOUS PALPABLE LUMP SHOULD BE BIOPSIED. Dictated by: Migue Collazo M.D. on 04/24/2024 at 16:15 Approved by: Migue Collazo M.D. on 04/24/2024 at 16:17 Dictated By: Migue Collazo M.D. Signed By: 04/24/24 1618 DD/ 16 TD/TT: Wireless Communications Engineer: [facility] Radiology, Radiologist, MD - 04/24/2024 [place] [address] Mammography Report Signed Patient: RAEANN VIVAS MR#: [id number] : 1960 Acct:[id number] Age/Sex: 63 / F ADM Date: 04/23/24 Loc: MAMMO Attending Dr: Verna Mcgarry D.O. Ordering Physician: Verna Mcgarry D.O. Results: Date of Service: 04/23/24 Follow Up: Procedure(s): MM tomosynthesis screening BI Accession Number(s): [id number] cc: Alber Allen D.O.; Verna Mcgarry D.O. Patient Name: RAEANN VIVAS MR#: [id number] : 1960 Exam Date: 04/23/2024 Ordering Doctor: DR Verna Mcgarry . RADIOLOGY REPORT PROCEDURE: MM TOMOSYNTHESIS SCREENING BI COMPARISON: MM TOMOSYNTHESIS SCREENING BI, 02/17/2023. MG MAMM SCREEN 3D DEJA CAD, 11/17/2021. MG MAMM SCREEN 3D DEJA CAD, 10/23/2020. MG MAMM DEJA SCRN W CAD DIG, 11/29/2012. INDICATIONS: Screening Calculator Name NCI Breast Cancer Risk Assessment Tool 5 Year Breast Cancer Risk 1.90% Lifetime Breast Cancer Risk 8.60% Personal Breast Cancer No Personal Ovarian Cancer No Treatments None Family Cancers None LOCATION: [facility] BREAST COMPOSITION: The breasts are extremely dense, which lowers the sensitivity of mammography. FINDINGS: DIAGNOSTIC CATEGORY 1--NEGATIVE. RIGHT BREAST: No significant suspicious finding. No significant change has occurred. LEFT BREAST: No significant suspicious finding. No significant change has occurred. RECOMMENDATIONS: ROUTINE MAMMOGRAM AND CLINICAL EVALUATION IN 12 MONTHS. PLEASE NOTE: A NORMAL MAMMOGRAM DOES NOT EXCLUDE THE POSSIBILITY OF BREAST CANCER. A CLINICALLY SUSPICIOUS PALPABLE LUMP SHOULD BE BIOPSIED. Dictated by: Migue Collazo M.D. on 04/24/2024 at 16:15 Approved by: Migue Collazo M.D. on 04/24/2024 at 16:17 Dictated By: Migue Collazo M.D. Signed By: 04/24/24 1618 DD/ 161 TD/TT: Wireless Communications Engineer: [facility] Radiology Study observation (narrative) [facility] MM TOMOSYNTHESIS SCREENING B IOrdered By: Radiologist Radiology on 04-24-2024 [facility] [employer] Work Phone: Human papilloma virus 16+18+ 31+33+35+39+45+51+52+56+58+59+66+68 DNA [Presence] in [place] 07-12-2023 HPV 16+18+31+33+35+39+4 5+51+52+56+58+59+66 +68 DNA Probe+sig amp Ql (Cvx) Negative Negative [facility] Comment on above: This nucleic acid am plification test detects fourteen high- risk HPV types (16,18,31,33,35,39,45,51,52,56,58,59,66,68)without differentiation.Performed at: =G - [facility] [address] [id number] Director: Karen Caba MD, Phone: [phone] at: - [facility] [address] [id number] Director: Karen Caba MD, Phone: [phone] No Panel Informationon 07-11 HPV High Risk Other Comment Note . [facility] Comment on above: TESTS RESULT FLAG UN ITS REF RANGE LAB CHENG GNOSIS: 02 NEGATIVE FOR INTRAEPITHELIAL LESION OR MALIGNANCY. CELLULAR CHANGES ASSOCIATED WITH ATROPHY ARE PRESENT.Specimen adequacy: 02 Satisfactory for evaluation.Performed by: Lilly Chicas, Care Transition Coordinator (ASCP). 02Note: Note 02 The Pap smear [...] Criteria not met, HPV Genotype not performed. ---- FLAG LEGEND: L-Low Normal,H-High Normal,LL-Alert Low,HH-Alert High <-Panic Low,>-Panic High,A-Abnormal,AA-Critical Abnormal --Performed at:02 [facility] [place] [address] [place] [address] Karen Caba MD, Reference Lab Test Patient Age Note . [facility] Comment on above: TESTS RESULT FLAG UN ITS REF RANGE LAB Clinician Provided Cytology Information Source.............Vagina No. of containers..01 ThinPrep VialAge Algo ACOG Claudia... 3065 FLAG LEGEND: L-Low Normal,H-High Normal,LL-Alert Low,HH-Alert High <-Panic Low,>-Panic High,A-Abnormal,AA-Critical Abnormal --Performed at:01 =G [facility] [place] [address] [place] [address] Karen Caba MD, CBC W MANUAL DIFFon 05-07-19 23 ATYPICAL LYMPH # Normal [facility] Comment on above: Performed By: ###Ana Rosa MORALES #### [facility] [address] [address] [address] Bradley De Oliveira ATYPICAL LYMPH % Normal [facility] Comment on above: Performed By: #### Shamar MORALES #### [facility] [address] [place], [place] [address] Dr. Bradley De Oliveira BAND # Normal 0.0-0.3 [facility] Comment on above: Performed By: #### C BCMAN #### [facility] [address] [address] [address] Bradley De Oliveira BAND % Normal 0-5 [facility] Comment on above: Performed By: #### C BCMAN #### [facility] [address] [place] [address] Dr. Bradley De Oliveira BASOM # 0.00 103/ul Normal 0.00-0.10 [facility] Comment on above: Performed By: #### C BCMAN #### [facility] [address] [place] [address] Dr. Bradley De Oliveira BASOM % 0.0 % Critically low 0.2-2.0 [facility] Comment on above: Performed By: #### C BCALEXIS #### [facility] [address] [place] [address] Dr. Bradley De Oliveira BLAST # Normal [facility] Comment on above: Performed By: #### C ANDREW #### [facility] [address] [place] [address] Dr. Bradley De Oliveira BLAST % Normal [facility] Comment on above: Performed By: #### C BCALEXIS #### [facility] [address] [place] [address] Dr. Bradley De Oliveira CORRECTED WBC Normal 4.0-11.0 [facility] Comment on above: Performed By: #### C BCALEXIS #### [facility] [address] [place] [address] Dr. Bradley De Oliveira EOS # 0.00 103/ul Normal 0.00-0.70 [facility] Comment on above: Performed By: #### C BCALEXIS #### [facility] [address] [place] [address] Dr. Bradley De Oliveira EOS% 0.0 % Critically low 0.9-7.0 [facility] Comment on above: Performed By: #### C BCALEXIS #### [facility] [address] [place] [address] Dr. Bradley De Oliveira HCT 40.8 % Normal 36.0-48.0 [facility] Comment on above: Performed By: #### C ANDREW #### [facility] [address] [address] [address] Bradley De Oliveira HGB 14.0 g/dl Normal 12.0-16.0 [facility] Comment on above: Performed By: #### C ANDREW #### [facility] [address] [address] [address] Bradley De Oliveira LYMPHM # 0.22 103/ul Critically low 1.20-3.80 [facility] Comment on above: Performed By: #### C ANDREW #### [facility] [address] [address] [address] Bradley De Oliveira LYMPHM% 2.0 % Critically low 20.5-60.0 [facility] Comment on above: Performed By: #### C ANDREW #### [facility] [address] [place] [address] Dr. Bradley De Oliveira MCH 31.3 pg Normal 26.7-34.0 [facility] Comment on above: Performed By: #### C ANDREW #### [facility] [address] [place] [address] Dr. Bradley De Oliveira MCHC 34.3 g/dl Normal 29.9-35.2 [facility] Comment on above: Performed By: #### C ANDREW #### [facility] [address] [place] [address] Dr. Bradley De Oliveira MCV 91.3 fL Normal 81.0-99.0 [facility] Comment on above: Performed By: #### C ANDREW #### [facility] [address] [place] [address] Dr. Bradley De Oliveira METAMYELOCYTE # Normal [facility] Comment on above: Performed By: #### C ANDREW #### [facility] [address] [place] [address] Dr. Bradley De Oliveira METAMYELOCYTE % Normal [facility] Comment on above: Performed By: #### C ANDREW #### [facility] [address] [place] [address] Dr. Bradley De Oliveira MONOM# 0.44 103/ul Normal 0.30-0.80 [facility] Comment on above: Performed By: #### C ANDREW #### [facility] [address] [place] [address] Dr. Bradley De Oliveira MONOM% 4.0 % Normal 1.7-12.0 [facility] Comment on above: Performed By: #### C ANDREW #### [facility] [address] [place] [address] Dr. Bradley De Oliveira MPV 9.3 fL Critically low 9.5-13.5 [facility] Comment on above: Performed By: #### C ANDREW #### [facility] [address] [place] [address] Dr. Bradley De Oliveira MYELOCYTE # Normal [facility] Comment on above: Performed By: #### C ANDREW #### [facility] [address] [place] [address] Dr. Bradley De Oliveira MYELOCYTE % Normal [facility] Comment on above: Performed By: #### C ANDREW #### [facility] [address] [place] [address] Dr. Bradley De Oliveira NRBC Normal [facility] Comment on above: Performed By: #### C ANDREW #### [facility] [address] [place] [address] Dr. Bradley De Oliveira PLT 293 103/ul Normal 150-450 [facility] Comment on above: Performed By: #### C ANDREW #### [facility] [address] [place] [address] Dr. Bradley De Oliveira RBC 4.47 106/ul Normal 4.20-5.40 [facility] Comment on above: Performed By: #### C ANDREW #### [facility] [address] [place] [address] Dr. Bradley De Oliveira RDW 12.4 % Normal 11.0-15.0 [facility] Comment on above: Performed By: #### C ANDREW #### [facility] [address] [place] [address] Dr. Bradley De Oliveira SEG # 10.34 103/ul Critically high 1.40-6.50 [facility] Comment on above: Performed By: #### C BCMAN #### [facility] [address] [place] [address] Dr. Bradley De Oliveira SEG % 94.0 % Critically high 43.0-75.0 [facility] Comment on above: Performed By: #### C BCMAN #### [facility] [address] [place] [address] Dr. Bradley De Oliveira WBC 11.0 103/ul Normal 4.0-11.0 [facility] Comment on above: Performed By: #### C BCMAN #### [facility] [address] [place] [address] Dr. Bradley De Oliveira CBC AUTO DIFFon 05-04-2022 BASO # 0.0 103/ul Normal 0.0-0.1 [facility] Comment on above: Performed By: #### P [id number] #### [facility] [address] [place] [address] Dr. Bradley De Oliveira Basophils/100 WBC (Bld) 0.5 % Normal 0.2-2.0 [facility] Comment on above: Performed By: #### P APH11A #### [facility] [address] [place] [address] Dr. Bradley De Oliveira EO # 0.1 103/ul Normal 0.0-0.7 [facility] Comment on above: Performed By: #### P APH11A #### [facility] [address] [place] [address] Dr. Bradley De Oliveira Eosinophils/100 WBC (Bld) 1.7 % Normal 0.9-7.0 [facility] Comment on above: Performed By: #### P APH11A #### [facility] [address] [place] [address] Dr. Bradley De Oliveira Erythrocyte distribution width (RBC) [Ratio] 12.4 % Normal 11.0-15.0 [facility] Comment on above: Performed By: #### P APH11A #### [facility] [address] [place] [address] Dr. Bradley De Oliveira Hematocrit (Bld) [Volume fraction] 39.9 % Normal 36.0-48.0 [facility] Comment on above: Performed By: #### P APH11A #### [facility] [address] [place] [address] Dr. Bradley De Oliveira Hemoglobin (Bld) [Mass/Vol] 14.0 g/dL Normal 12.0-16.0 [facility] Comment on above: Performed By: #### P APH11A #### [facility] [address] [place] [address] Dr. Bradley De Oliveira IG # 0.02 10e3/ul Normal 0.00-0.03 [facility] Comment on above: Performed By: #### P APH11A #### [facility] [address] [place] [address] Dr. Bradley De Oliveira IG % 0.3 % Normal 0.0-0.5 [facility] Comment on above: Performed By: #### P APH11A #### [facility] [address] [place] [address] Dr. Bradley De Oliveira LYMPH # 2.5 103/ul Normal 1.2-3.8 [facility] Comment on above: Performed By: #### P APH11A #### [facility] [address] [place] [address] Dr. Bradley De Oliveira Lymphocytes/100 WBC (Bld) 38.7 % Normal 20.5-60.0 [facility] Comment on above: Performed By: #### P APH11A #### [facility] [address] [place] [address] Dr. Bradley De Oliveira MANUAL DIFF REQ NO Normal [facility] Comment on above: Performed By: #### P APH11A #### [facility] [address] [place] [address] Dr. Bradley De Oliveira MCH (RBC) [Entitic mass] 31.7 pg Normal 26.7-34.0 [facility] Comment on above: Performed By: #### P APH11A #### [facility] [address] [place] [address] Dr. Bradley De Oliveira MCHC (RBC) [Mass/Vol] 35.1 g/dL Normal 29.9-35.2 [facility] Comment on above: Performed By: #### P APH11A #### [facility] [address] [place] [address] Dr. Bradley De Oliveira MCV (RBC) [Entitic vol] 90.3 fL Normal 81.0-99.0 [facility] Comment on above: Performed By: #### P APH11A #### [facility] [address] [place] [address] Dr. Bradley De Oliveira MONO # 0.4 103/ul Normal 0.3-0.8 [facility] Comment on above: Performed By: #### P APH11A #### [facility] [address] [place] [address] Dr. Bradley De Oliveira Monocytes/100 WBC (Bld) 6.1 % Normal 1.7-12.0 [facility] Comment on above: Performed By: #### P APH11A #### [facility] [address] [place] [address] Dr. Bradley De Oliveira NEUT # 3.5 103/ul Normal 1.4-6.5 [facility] Comment on above: Performed By: #### P APH11A #### [facility] [address] [place] [address] Dr. Bradley De Oliveira Neutrophils/100 WBC (Bld) 52.7 % Normal 43.0-75.0 [facility] Comment on above: Performed By: #### P APH11A #### [facility] [address] [place] [address] Dr. Bradley De Oliveira Platelet mean volume (Bld) [Entitic vol] 9.3 fL Critically low 9.5-13.5 [facility] Comment on above: Performed By: #### P APH11A #### [facility] [address] [place] [address] Dr. Bradley De Oliveira PLT 304 103/ul Normal 150-450 [facility] Comment on above: Performed By: #### P APH11A #### [facility] [address] [place] [address] Dr. Bradley De Oliveira RBC 4.42 106/ul Normal 4.20-5.40 [facility] Comment on above: Performed By: #### P APH11A #### [facility] [address] [address] [address] Bradley De Oliveira WBC 6.6 103/ul Normal 4.0-11.0 [facility] Comment on above: Performed By: #### P APH11A #### [facility] [address] [address] [address] Bradley De Oliveira TYPE AND SCREENon 05-04-2022 TYPE AND SCREEN Negative Normal [facility] Comment on above: Performed By: #### T NS #### [facility] [address] [address] [address] Bradley De Oliveira Pap IG,rfx Aptima HPV all pt hon 02-04-2022 . . Normal [facility] Comment on above: Performed By: #### P APH11A #### [facility] [address] [place] [address] Dr. Bradley De Oliveira DIAGNOSIS: Comment Normal [facility] Comment on above: Result Comment: NEGA TIVE FOR INTRAEPITHELIAL LESION OR MALIGNANCY. Performed By: #### P APH11A #### [facility] [address] [place] [address] Dr. Bradley De Oliveira Methodology: Comment [facility] Comment on above: Result Comment: This liquid based ThinPrep(R) pap test was screened with the use of an image guided system. Performed By: #### P APH11A #### [facility] [address] [place] [address] Dr. Bradley De Oliveira Note: Comment Normal [facility] Comment on above: Result Comment: The Pap smear is a screening test designed to aid in the detection of premalignant and malignant conditions of the uterine cervix. It is not a diagnostic procedure and should not be used as the sole means of detecting cervical cancer. Both false-positive and false-negative reports do occur. . Performed By: #### P APH11A #### [facility] [address] [place] [address] Dr. Bradley De Oliveira Performed by: Comment Normal [facility] Comment on above: Result Comment: Sofía Sauer, Care Transition Coordinator (ASCP) Performed By: #### P APH11A #### [facility] [address] [place] [address] Dr. Bradley De Oliveira QC reviewed by: Comment Normal [facility] Comment on above: Result Comment: Stepan Gatica, Supervisory Care Transition Coordinator (ASCP) Performed By: #### P APH11A #### [facility] [address] [place] [address] Dr. Bradley De Oliveira Reflex Criteria: Comment Normal [facility] Comment on above: Result Comment: The HPV DNA reflex criteria were not met with this specimen result therefore, no HPV testing was performed. . Performed By: #### P APH11A #### [facility] [address] [place] [address] Dr. Bradley De Oliveira Specimen adequacy: Comment Normal [facility] Comment on above: Result Comment: Sati sfactory for evaluation. Endocervical component may not be distinguished in cases of atrophy. Performed By: #### P APH11A #### [facility] [address] [place] [address] Dr. Bradley De Oliveira CBC AUTO DIFFon 11-28-2021 BASO # 0.0 103/ul Normal 0.0-0.1 [facility] Comment on above: Performed By: #### C BC #### [facility] [address] [place] [address] Dr. Bradley De Oliveira Basophils/100 WBC (Bld) 0.7 % Normal 0.2-2.0 [facility] Comment on above: Performed By: #### C BC #### [facility] [address] [place] [address] Dr. Bradley De Oliveira EO # 0.2 103/ul Normal 0.0-0.7 [facility] Comment on above: Performed By: #### C BC #### [facility] [address] [place] [address] Dr. Braldey De Oliveira Eosinophils/100 WBC (Bld) 3.7 % Normal 0.9-7.0 [facility] Comment on above: Performed By: #### C BC #### [facility] [address] [place] [address] Dr. Bradley De Oliveira Erythrocyte distribution width (RBC) [Ratio] 12.4 % Normal 11.0-15.0 [facility] Comment on above: Performed By: #### C BC #### [facility] [address] [place] [address] Dr. Bradley De Oliveira Hematocrit (Bld) [Volume fraction] 44.2 % Normal 36.0-48.0 [facility] Comment on above: Performed By: #### C BC #### [facility] [address] [place] [address] Dr. Bradley De Oliveira Hemoglobin (Bld) [Mass/Vol] 14.9 g/dL Normal 12.0-16.0 [facility] Comment on above: Performed By: #### C BC #### [facility] [address] [place] [address] Dr. Bradley De Oliveira IG # 0.01 10e3/ul Normal 0.00-0.03 [facility] Comment on above: Performed By: #### C BC #### [facility] [address] [place] [address] Dr. Bradley De Oliveira IG % 0.2 % Normal 0.0-0.5 [facility] Comment on above: Performed By: #### C BC #### [facility] [address] [place] [address] Dr. Bradley De Oliveira LYMPH # 1.7 103/ul Normal 1.2-3.8 [facility] Comment on above: Performed By: #### C BC #### [facility] [address] [place] [address] Dr. Bradley De Oliveira Lymphocytes/100 WBC (Bld) 39.6 % Normal 20.5-60.0 [facility] Comment on above: Performed By: #### C BC #### [facility] [address] [place] [address] Dr. Bradley De Oliveira MANUAL DIFF REQ NO Normal [facility] Comment on above: Performed By: #### C BC #### [facility] [address] [place] [address] Dr. Bradley De Oliveira MCH (RBC) [Entitic mass] 31.6 pg Normal 26.7-34.0 [facility] Comment on above: Performed By: #### C BC #### [facility] [address] [place] [address] Dr. Bradley De Oliveira MCHC (RBC) [Mass/Vol] 33.7 g/dL Normal 29.9-35.2 [facility] Comment on above: Performed By: #### C BC #### [facility] [address] [place] [address] Dr. Bradley De Oliveira MCV (RBC) [Entitic vol] 93.6 fL Normal 81.0-99.0 [facility] Comment on above: Performed By: #### C BC #### [facility] [address] [place] [address] Dr. Bradley De Oliveira MONO # 0.4 103/ul Normal 0.3-0.8 [facility] Comment on above: Performed By: #### C BC #### [facility] [address] [place] [address] Dr. Bradley De Oliveira Monocytes/100 WBC (Bld) 9.5 % Normal 1.7-12.0 [facility] Comment on above: Performed By: #### C BC #### [facility] [address] [place] [address] Dr. Bradley De Oliveira NEUT # 2.0 103/ul Normal 1.4-6.5 [facility] Comment on above: Performed By: #### C BC #### [facility] [address] [place] [address] Dr. Bradley De Oliveira Neutrophils/100 WBC (Bld) 46.3 % Normal 43.0-75.0 [facility] Comment on above: Performed By: #### C BC #### [facility] [address] [place] [address] Dr. Bradley De Oliveira Platelet mean volume (Bld) [Entitic vol] 9.3 fL Critically low 9.5-13.5 [facility] Comment on above: Performed By: #### C BC #### [facility] [address] [place] [address] Dr. Bradley De Oliveira PLT 279 103/ul Normal 150-450 [facility] Comment on above: Performed By: #### C BC #### [facility] [address] [address] [address] Bradley De Oliveira RBC 4.72 106/ul Normal 4.20-5.40 [facility] Comment on above: Performed By: #### C BC #### [facility] [address] [address] [address] Bradley De Oliveira WBC 4.3 103/ul Normal 4.0-11.0 [facility] Comment on above: Performed By: #### C BC #### [facility] [address] [address] [address] Bradley De Oliveira LIPID PROFILEon 11-28-2021 CHOL-HDL RATIO NORM SEE BELOW Normal [facility] Comment on above: Result Comment: 3.3 - 4.4 LOW RISK 4.4 - 7.1 AVERAGE RISK 7.1 - 11.0 MODERATE RISK >11.0 HIGH RISK Performed By: #### C MP, LIPID, TSH #### [facility] [address] [place] [address] Dr. Bradley De Oliveira Cholesterol [Mass/Vol] 223 mg/dL Critically high <=200 [facility] Comment on above: Performed By: #### C MP, LIPID, TSH #### [facility] [address] [place] [address] Dr. Bradley De Oliveira Cholesterol in HDL [Mass/Vol] 108 mg/dL Critically high 40-60 [facility] Comment on above: Performed By: #### C MP, LIPID, TSH #### [facility] [address] [place] [address] Dr. Bradley De Oliveira Cholesterol in LDL [Mass/Vol] 100.6 mg/dL Normal [facility] Comment on above: Performed By: #### C MP, LIPID, TSH #### [facility] [address] [place] [address] Dr. Bradley De Oliveira Cholesterol.total/C holesterol in HDL [Mass ratio] 2.1 {ratio} Normal [facility] Comment on above: Performed By: #### C MP, LIPID, TSH #### [facility] [address] [address] [address] Bradley De Oliveira HDL NORMAL > or = 60 mg/dl - LO W CARDIOVASCULAR RISK <40 mg/dl - HIGH CARDIOVASCULAR RISK Normal [facility] Comment on above: Performed By: #### C MP, LIPID, TSH #### [facility] [address] [address] [address] Bradley De Oliveira LDL CALC NORMAL SEE BELOW Normal [facility] Comment on above: Result Comment: <100 mg/dl OPTIMAL 100 - 129 mg/dl NEAR OR ABOVE OPTIMAL 130 - 159 mg/dl BORDERLINE HIGH 160 - 189 mg/dl HIGH >190 mg/dl VERY HIGH Performed By: #### C MP, LIPID, TSH #### [facility] [address] [address] [address] Bradley De Oliveira Triglyceride [Mass/Vol] 72 mg/dL Normal <=150 [facility] Comment on above: Performed By: #### C MP, LIPID, TSH #### [facility] [address] [address] [address] Bradley De Oliveira VLDL CALC 14.4 mg/dL Normal [facility] Comment on above: Performed By: #### C MP, LIPID, TSH #### [facility] [address] [address] [address] Bradley De Oliveira PROF 14(COMP METB)on 022 Albumin [Mass/Vol] 4.2 g/dL Normal 3.4-5.0 [facility] Comment on above: Performed By: #### C MP, LIPID, TSH #### [facility] [address] [address] [address] Bradley De Oliveira Albumin/Globulin [Mass ratio] 1.1 {ratio} Normal [facility] Comment on above: Performed By: #### C MP, LIPID, TSH #### [facility] [address] [address] [address] Bradley De Oliveira ALP [Catalytic activity/Vol] 77 U/L Normal 46-116 [facility] Comment on above: Performed By: #### C MP, LIPID, TSH #### [facility] [address] [address] [address] Bradley De Oliveira ALT [Catalytic activity/Vol] 24 U/L Normal 14-59 [facility] Comment on above: Performed By: #### C MP, LIPID, TSH #### [facility] [address] [address] [address] Bradley De Oliveira Anion gap [Moles/Vol] 12.7 mmol/L Normal [facility] Comment on above: Performed By: #### C MP, LIPID, TSH #### [facility] [address] [address] [address] Bradley De Oliveira AST [Catalytic activity/Vol] 25 U/L Normal 15-37 [facility] Comment on above: Performed By: #### C MP, LIPID, TSH #### [facility] [address] [place] [address] Dr. Bradley De Oliveira Bilirubin [Mass/Vol] 0.4 mg/dL Normal 0.2-1.0 [facility] Comment on above: Performed By: #### C MP, LIPID, TSH #### [facility] [address] [address] [address] Bradley De Oliveira Calcium [Mass/Vol] 9.3 mg/dL Normal 8.5-10.1 [facility] Comment on above: Performed By: #### C MP, LIPID, TSH #### [facility] [address] [place] [address] Dr. Bradley De Oliveira Chloride [Moles/Vol] 102 mmol/L Normal 98-107 [facility] Comment on above: Performed By: #### C MP, LIPID, TSH #### [facility] [address] [address] [address] Bradley De Oliveira CO2 [Moles/Vol] 28.2 mmol/L Normal 21.0-32.0 [facility] Comment on above: Performed By: #### C MP, LIPID, TSH #### [facility] [address] [place] [address] Dr. Bradley De Oliveira Creatinine [Mass/Vol] 0.60 mg/dL Normal 0.55-1.02 [facility] Comment on above: Performed By: #### C MP, LIPID, TSH #### [facility] [address] [address] [address] Bradley De Oliveira EGFR-AF IVORIAN >60 Normal >=60 [facility] Comment on above: Performed By: #### C MP, LIPID, TSH #### [facility] [address] [address] [address] Bradley De Oliveira EGFR-NON AF IVORIAN >60 Normal >=60 [facility] Comment on above: Performed By: #### C MP, LIPID, TSH #### [facility] [address] [address] [address] Bradley De Oliveira Globulin (S) [Mass/Vol] 3.7 g/dL Normal [facility] Comment on above: Performed By: #### C MP, LIPID, TSH #### [facility] [address] [address] [address] Bradley De Oliveira Glucose [Mass/Vol] 89 mg/dL Normal 74-106 [facility] Comment on above: Performed By: #### C MP, LIPID, TSH #### [facility] [address] [address] [address] Bradley De Oliveira Potassium [Moles/Vol] 3.9 mmol/L Normal 3.5-5.1 [facility] Comment on above: Performed By: #### C MP, LIPID, TSH #### [facility] [address] [address] [address] Bradley De Oliveira Protein [Mass/Vol] 7.9 g/dL Normal 6.4-8.[address] [facility] Comment on above: Performed By: #### C MP, LIPID, TSH #### [facility] [address] [address] [address] Bradley De Oliveira Sodium [Moles/Vol] 139 mmol/L Normal 136-[address] [facility] Comment on above: Performed By: #### C MP, LIPID, TSH #### [facility] [address] [address] [address] Bradley De Oliveira Urea nitrogen [Mass/Vol] 14.0 mg/dL Normal 7.0-18.0 [facility] Comment on above: Performed By: #### C MP, LIPID, TSH #### [facility] [address] [place], [place] [address] Dr. Bradley De Oliveria Urea nitrogen/Creatinine [Mass ratio] 23.3 mg/mg Normal [facility] Comment on above: Performed By: #### C MP, LIPID, TSH #### [facility] [address] [place], [place] [address] Dr. Bradley De Oliveira TSHon 11-28-2021 TSH 1.453 uIU/mL Normal 0.358-3.740 [facility] Comment on above: Performed By: #### C MP, LIPID, TSH #### [facility] [address] [place], [place] [address] Dr. Bradley De Oliveira MG MAMM SCREEN 3D DEJA CADon 11-17-2021 MG MAMM SCREEN 3D DEJA CAD Patient: RAEANN VIVAS Exam Date: 11/17/2021 : 1960 Gender:F Ordering : DR VERNA MCGARRY . Admission #: [id number] Family : Order #: [id number] CLICK HERE TO VIEW EXAM RADIOLOGY REPORT [...] Treatments None Family Cancers None LOCATION: [facility] BREAST COMPOSITION: Extremely dense, which lowers the [...] Ortega MD on 11/18/2021 at 08:11 Normal [facility] XR DEXA BONE DENSITYon 11-17 XR DEXA BONE DENSITY EXAMINATION: XR DEXA BONE DENSITY, 11/17/2021 2:57 PM EDT HISTORY: [...] - Moderate Fracture Risk Electronically authenticated by: MIGUE COLLAZO Date: 2021-11-17 15:54 Normal [facility] Pap IG, rfx Aptima HPV ASCUo n 07-30-2021 . . Normal [facility] Comment on above: Performed By: #### P APH11A #### [facility] [address] [address] [address] Bradley De Oliveira DIAGNOSIS: Comment Abnormal [facility] Comment on above: Result Comment: EPIT HELIAL CELL ABNORMALITY. ATYPICAL SQUAMOUS CELLS OF UNDETERMINED SIGNIFICANCE (ASC-US). Performed By: #### P [id number] #### [facility] [address] [address] [address] Bradley De Oliveira Electronically signed by: Comment Normal [facility] Comment on above: Result Comment: Minerva Pizarro MD, Pathologist Performed By: #### P APH11A #### [facility] [address] [address] [address] Bradley De Oliveira HPV Aptima Positive Abnormal Negative [facility] Comment on above: Result Comment: This nucleic acid amplification test detects fourteen high-risk HPV types (16,18,31,33,35,39,45,51,52,56,58,59,66,68) without differentiation. Performed By: #### P [id number] #### [facility] [address] [address] [address] Bradley De Oliveira Methodology: Comment Normal [facility] Comment on above: Result Comment: This liquid based ThinPrep(R) pap test was screened with the use of an image guided system. Performed By: #### P APH11A #### [facility] [address] [place] [address] Dr. Bradley De Oliveira Note: Comment Normal [facility] Comment on above: Result Comment: The Pap smear is a screening test designed to aid in the detection of premalignant and malignant conditions of the uterine cervix. It is not a diagnostic procedure and should not be used as the sole means of detecting cervical cancer. Both false-positive and false-negative reports do occur. . Performed By: #### P APH11A #### [facility] [address] [address] [address] Bradley De Oliveira Pathologist Provided ICD10 Comment Normal [facility] Comment on above: Result Comment: R87. [id number] Performed By: #### P APH11A #### [facility] [address] [place] [address] Dr. Bradley De Oliveira Performed by: Comment Normal [facility] Comment on above: Result Comment: Kathryn Braun, Care Transition Coordinator (ASCP) Performed By: #### P APH11A #### [facility] [address] [place] [address] Dr. Bradley De Oliveira Reflex Criteria: Comment Normal [facility] Comment on above: Result Comment: See below for HPV testing results. . Performed By: #### P APH11A #### [facility] [address] [place] [address] Dr. Bradley De Oliveira Specimen adequacy: Comment Normal [facility] Comment on above: Result Comment: Sati sfactory for evaluation. Endocervical and/or squamous metaplastic cells (endocervical component) are present. Performed By: #### P APH11A #### [facility] [address] [place] [address] Dr. Bradley De Oliveira Vital Signs Date Time Vital Sign Value Performing Clinician Facility 01-04-2025 11: Body height 153.67 cm Alber Allen DO Work Phone: [facility] 01-04-2025 11:040 Body mass index (BMI) [Ratio] 27.6 kg/m2 Alber Ball DO Work Phone: [facility] 01-04-2025 11:10-0400 Body weight 65.31 kg Alber Ball DO Work Phone: [facility] 01-04-2025 11:10-0400 Diastolic blood pressure 90 mm[Hg] Alber Ball DO Work Phone: [facility] 01-04-2025 11:10-0400 Heart rate 101 /min Alber Ball DO Work Phone: [facility] 01-04-2025 11:10-0400 Respiratory rate 12 /min Alber Ball DO Work Phone: [facility] 01-04-2025 11:10-0400 Systolic blood pressure 136 mm[Hg] Alber Ball DO Work Phone: [facility] 07-17-2024 09:20-0400 Body height 156.2 cm Annika Claudette [employer] Work Phone: [facility] 07-17-2024 09:20-0400 Body mass index (BMI) [Ratio] 27.05 kg/m2 Annika Claudette [employer] Work Phone: [facility] 07-17-2024 09:20-0400 Body weight 66 kg Annika Claudette [employer] Work Phone: [facility] 07-17-2024 09:20-0400 Diastolic blood pressure 80 mm[Hg] Annika Claudette [employer] Work Phone: [facility] 07-17-2024 09:20-0400 Systolic blood pressure 122 mm[Hg] Annika Claudette [employer]AGE [employer] Work Phone: [facility] 05-15-2024 09:21-0500 Body height 153.67 cm [facility] 05-15-2024 09:21-0500 Body mass index (BMI) [Ratio] 29.2 kg/m2 [facility] 05-15-2024 09:21-0500 Body weight 69 kg [facility] 05-15-2024 09:21-0500 Diastolic blood pressure 93 mm[Hg] [facility] 05-15-2024 09:21-0500 Heart rate 93 /min [facility] 05-15-2024 09:21-0500 Respiratory rate 12 /min [facility] 05-15-2024 09:21-0500 Systolic blood pressure 144 mm[Hg] [facility] 2023 09:54-0400 Body height 153.67 cm [facility] 2023 09:54-0400 Body mass index (BMI) [Ratio] 29.2 kg/m2 [facility] 2023 09:54-0400 Body weight 69.05 kg [facility] 2023 09:54-0400 Diastolic blood pressure 91 mm[Hg] [facility] 2023 09:54-0400 Heart rate 75 /min [facility] 2023 09:54-0400 Respiratory rate 12 /min [facility] 2023 09:54-0400 Systolic blood pressure 134 mm[Hg] [facility] 09-12-2023 15:46-0400 Body height 153.67 cm [facility] 09-12-2023 15:46-0400 Body mass index (BMI) [Ratio] 28.6 kg/m2 [facility] 09-12-2023 15:46-0400 Body weight 67.69 kg [facility] 09-12-2023 15:46-0400 Diastolic blood pressure 81 mm[Hg] [facility] 09-12-2023 15:46-0400 Heart rate 78 /min [facility] 09-12-2023 15:46-0400 Respiratory rate 12 /min [facility] 09-12-2023 15:46-0400 Systolic blood pressure 118 mm[Hg] [facility] 03-18-2023 09:00-0500 Body height 153.67 cm Alber Ball Other [facility] Other 03-18-2023 09:00-0500 Body mass index (BMI) [Ratio] 28.08 kg/m2 Alber Allen Other [facility] Other 03-18-2023 09:00-0500 Body weight 66.32 kg Alber Allen Other [facility] Other 03-18-2023 09:00-0500 Diastolic blood pressure 82 mm[Hg] Alber Allen Other [facility] Other 03-18-2023 09:00-0500 Respiratory rate 12 /min Alber Allne Other [facility] Other 03-18-2023 09:00-0500 Systolic blood pressure 132 mm[Hg] Alber Allen Other [facility] Other Encounters Encounter Date Encounter Type Care Provider Facility Start: 01-04-2025 End: 01-04-2025 ambulatory Alber Allen DO Work Phone: [facility] Start: 01-04-2025 End: 01-04-2025 Patient encounter procedure Alber Allen DO [facility] Work Phone: Start: 01-04-2025 End: 01-04-2025 Patient encounter status Alber Allen DO [facility] Start: 07-17-2024 End: 07-17-2024 Bamboo flowsheet Annika Wilkins NP Work Phone: [facility] Start: 07-17-2024 End: 07-19-2024 Bamboo flowsheet Annika Wilkins [employer] Work Phone: [facility] Start: 07-17-2024 End: 07-19-2024 Clinisync Result Encounter Annika Wilkins NP Work Phone: [facility] Unsolicited Start: 07-17-2024 End: 07-17-2024 Patient encounter procedure Annika Wilkins NP Work Phone: [facility] Start: 07-17-2024 End: 07-17-2024 Periodic preventive med est patient 40-64yrs Annika Claudette [employer] Work Phone: [facility] Comment on above: Well woman exam with routine gynecological exam; Encounter for screening mammogram for malignant neoplasm of breast; Postmenopausal state Start: 07-17-2024 End: 07-17-2024 ambulatory ANNIKA CLAUDETTE Not Available Start: 05-15-2024 End: 05-15-2024 ambulatory [facility] Work Phone: Start: 05-15-2024 End: 05-15-2024 [facility] encounter procedure [facility] Work Phone: Start: 04-24-2024 End: 04-24-2024 Clinisync Result Encounter Verna Malgorzata DO Work Phone: [facility] External Department Unsolicited Start: 04-24-2024 End: 04-24-2024 Clinisync Result Encounter Verna Malgorzata DO Work Phone: [facility] Unsolicited Start: 02-20-2024 End: 02-20-2024 Patient encounter procedure [facility] Work Phone: Start: 01-23-2024 End: 01-23-2024 Office outpatient new 45 minutes Arianna Matute MD Work Phone: [facility] Comment on above: Other seborrheic brady matitis (Primary Dx); Capillary angioma; Seborrheic keratosis Start: 01-23-2024 End: 01-23-2024 ambulatory ARIANNA MATUTE Not Available Start: 01-23-2024 End: 01-23-2024 Maya Matute MD Work Phone: [facility] Start: 01-23-2024 End: 01-23-2024 Maya Matute MD Work Phone: [facility] Start: 2023 End: 2023 ambulatory [facility] Work Phone: Start: 2023 End: 2023 Encounter for general adult medical examination without abnormal findings [facility] Start: 2023 End: 2023 Patient encounter procedure [facility] Work Phone: Start: 12-25-2023 Patient encounter status [facility] Start: 09-12-2023 End: 09-12-2023 ambulatory [facility] Work Phone: Start: 09-12-2023 End: 09-12-2023 Patient encounter procedure [facility] Work Phone: Start: 07-12-2023 Non-patient / Non-visit [facility] Work Phone: Start: 03-18-2023 End: 03-18-2023 ambulatory Alber Ball Other [facility] Other Start: 03-18-2023 Office outpatient vi sit 15 minutes Alber Ball [facility] Start: 01-02-2023 End: 01-02-2023 ambulatory Alber Ball Other [facility] Other Start: 01-02-2023 Telephone encounter Alber Ball [facility] Start: 12-20-2022 End: 12-20-2022 ambulatory Alber Ball Other [facility] Other Start: 12-20-2022 Telephone encounter Alber Ball [facility] Start: 08-02-2022 End: 08-02-2022 ambulatory Alber Ball Other [facility] Other Start: 08-02-2022 Office outpatient vi sit 15 minutes Alber Ball [facility] Start: 05-09-2022 Encounter for preprocedural laboratory examination DR VERNA MCGARRY . [facility] Start: 05-07-2022 End: 05-07-[address] VERNA MCGARRY . Facility:[facility] Start: 05-04-2022 End: 05-05-[address] VERNA MCGARRY . Facility:[facility] Start: 05-04-2022 End: 05-05-2022 Encounter for preprocedural laboratory examination DR VERNA MCGARRY . Facility:[facility] Start: 04-25-2022 Encounter for preprocedural cardiovascular examination DR VERNA MCGARRY . [facility] Start: 04-22-2022 End: 04-23-[address] VERNA MCGARRY . Facility:[facility] Start: 04-22-2022 End: 04-23-2022 Encounter for preprocedural cardiovascular examination DR VERNA MCGARRY . Facility:[facility] Start: 01-26-2022 End: 01-26-[address] VERNA MCGARRY . Facility:[facility] Start: 12-04-2021 Encounter for genera l adult medical examination without abnormal findings DR ALBER ALLEN [facility] Start: 11-28-2021 End: 11-29-[address] ALBER ALLEN Facility:[facility] Start: 11-28-2021 End: 11-29-2021 Encounter for general adult medical examination without abnormal findings DR ALBER ALLEN Facility:[facility] Start: 11-17-2021 End: 11-18-[address] OXANA ORTEGA Facility:[facility] Start: 11-13-2021 Adult health examination Laz Allen Other [facility] Other Start: 11-12-2021 Gynecological examin ation normal Alber Allen Other [facility] Other Start: 11-12-2021 History of abnormal cervical Papanicolaou smear Alber Allen Other [facility] Other Start: 07-22-2021 End: 07-22-[address] VERNA MCGARRY . Facility: Procedures Date Procedure Procedure Detail Performing Clinician Start: 07-17-2024 IGP,APTIMA HPV,AGE GDLN Annika Wilkins [employer] Work Phone: Start: 04-24-2024 MM TOMOSYNTHESIS SCR WILLAM Mcgarry DO Work Phone: Start: 02-28-2018 General examination of patient Alber Allen Other Depression screening Vickie Allen Other Screening for malign ant neoplasm of breast Alber Allen Other Screening for malign ant neoplasm of colon Alber Allen Other Plan of Treatment Date Care Activity Detail Author Start: 07-23-2025 End: 07-23-2025 Patient encounter procedure 07/23/2025 9:00 AM EDT Office Visit [facility] [address] [address] Kathryn Oliver PA [address] [place], [place] [id number] [facility] Start: 07-17-2024 End: 07-17-2025 DXA Skeletal system Views for bone density DEXA bone density Imaging Routine Postmenopausal state Expected: 07/17/2024 (Approximate), Expires: 07/17/2025 [facility] Work Phone: Comment on above: Expected: 07/17/2024 (Approximate), Expires: 07/17/2025 Start: 07-17-2024 End: 07-17-2024 Patient encounter procedure [facility] Comment on above: Arrived Start: 01-23-2024 End: 01-23-2024 Patient encounter procedure 01/23/2024 3:15 PM EST Office Visit [facility] [address] [place] [id number] Arianna Matute MD [address] [place] [address] Arrived [facility] Comment on above: Arrived Comprehensive metabo lic 1999 panel - Serum or Plasma [facility] Comprehensive metabo lic 1999 panel - Serum or Plasma [facility] THIN PREP TIS PAP AN D HR HPV DNA THIN PREP TIS PAP AND HR HPV DNA Pathology and Cytology Routine Well woman exam with routine gynecological exam Ordered: 07/17/2024 [facility] Comment on above: Ordered: 07/17/2024 US Kidney - bilateral [facility] XR Hip - right 2 Views [facility] XR Lumbar spine Views [facility] Payers Date Payer Category Payer Private Health Insurance [employer] [id number] 1960 Unknown [id number] 593 1961 Unknown [id number]. 593 1961 Unknown [id number] [id number]. 593 1961 Unknown [id number] [id number]. 593 1961 Unknown [id number] [id number]. 593 1961 Unknown [id number] [id number]. 593 1961 Unknown [id number] [id number]. 593 1961 Unknown [id number] [id number]. 1259 1961 Unknown [id number] [id number]. 1259 1959 Unknown [id number] 1959 Unknown [id number] 1959 Unknown [id number] 1959 Unknown [id number] [facility] [id number] Unknown [facility] [id number] Social History Date Type Detail Facility Start: 07-12-2023 End: 01-23-2024 Sex Assigned At [facility] [employer] Other Start: 09-12-2023 End: 02-20-2024 Tobacco smoking status NHIS Never smoked tobacco (finding) [facility] Start: 1960 Sex Assigned At Female F [facility] Start: 04-13-2023 Tobacco use and exposure Smokeless tobacco non-user [facility] Start: 07-12-2023 End: 01-23-2024 History of Social function [facility] Start: 1960 Sex assigned at Not on file [facility] Start: 05-15-2024 Sex Female (finding) [facility] Clinical Notes 04-21-2022 to 07-17-2024 Annika Wilkins NP - 07/17/2024 9:00 AM EDT Note Date & Type Note Facility 07-17-2024 History of Presen t illness Narrative Reason for Appointment: Patient ID: Raeann Vivas is a 63 y.o. female who presents for Well Women Visit Patient presents today for Annual Exam. MEDICATIONS Current Outpatient Medications Medication Instructions calcium carbonate 1500 (600 Ca) MG tablet Every 12 hours CREATINE PO Take by mouth fluocinonide (Lidex) 0.05 % external solution Apply to affected areas on the scalp, up to twice a day when flared, 30 day supply Pediatric Multivitamins-Fl (MultiVitamin + Fluoride) 0.25 MG chewable tablet Multivitamin ALLERGIES Allergies Allergen Reactions Penicillins Other Reaction(s): Unknown PROBLEMS Active Ambulatory Problems Diagnosis Date Noted No Active Ambulatory Problems Resolved Ambulatory Problems Diagnosis Date Noted No Resolved Ambulatory Problems Past Medical History: Diagnosis Date ASCUS with positive high risk HPV cervical BMI 25.0-25.9,adult BMI 29.0-29.9,adult Encounter for annual physical exam Family history of diabetes mellitus History of menopause Idiopathic scoliosis and kyphoscoliosis Osteoarthritis of one hip, left Screening for human papillomavirus (HPV) Well woman exam HISTORY PAST MEDICAL HISTORY SOCIAL HISTORY Past Medical History: Diagnosis Date ASCUS with positive high risk HPV cervical BMI 25.0-25.9,adult BMI 29.0-29.9,adult Encounter for annual physical exam Family history of diabetes mellitus History of menopause Idiopathic scoliosis and kyphoscoliosis Osteoarthritis of one hip, left Screening for human papillomavirus (HPV) Well woman exam Social History Tobacco Use Smoking status: Never Smokeless tobacco: Never Substance Use Topics Alcohol use: Not on file Drug use: Not on file FAMILY HISTORY Family History Problem Relation Name Age of Onset Hypertension Mother Other (postmenstrual osteoporosis) Mother Diabetes Father Heart disease Father Alzheimer's disease Father Coronary artery disease Other Hypertension Other Diabetes Other SURGICAL HISTORY Past Surgical History: Procedure Laterality Date HYSTERECTOMY REVIEW OF SYSTEMS Review of Systems: Review of Systems Constitutional: Negative. HENT: Negative. Eyes: Negative. Respiratory: Negative. Cardiovascular: Negative. Gastrointestinal: Negative. Genitourinary: Negative. Musculoskeletal: Negative. Skin: Negative. Neurological: Negative. All other systems reviewed and are negative. Hematological: Negative. Endocrine: Negative. Allergic/Immunologic: Negative. OBJECTIVE Objective: Physical Exam Constitutional: Appearance: Normal appearance. She is well-developed. Genitourinary: Vulva normal. Vaginal cuff intact. Breasts: Breasts are soft. Right: Normal. Left: Normal. Cardiovascular: Rate and Rhythm: Normal rate and regular rhythm. Pulmonary: Effort: Pulmonary effort is normal. Breath sounds: Normal breath sounds. Abdominal: General: Bowel sounds are normal. There is no distension. Palpations: Abdomen is soft. Tenderness: There is no abdominal tenderness. There is no guarding or rebound. Musculoskeletal: General: No swelling. Normal range of motion. Right lower leg: No edema. Left lower leg: No edema. Neurological: Mental Status: She is alert and oriented to person, place, and time. Skin: General: Skin is warm and dry. Psychiatric: Mood and Affect: Mood normal. Behavior: Behavior normal. Vitals and nursing note reviewed. Exam conducted with a revenue accounting manager present. Vitals: Estimated body mass index is 27.05 kg/m as calculated from the following: Height as of this encounter: 5' 1.5 . Weight as of this encounter: 145 lb 8 oz. BP: 122/80 No LMP recorded. Patient is postmenopausal. ASSESSMENT & PLAN ICD-10-CM 1. Well woman exam with routine gynecological exam Z01.419 THIN PREP TIS PAP AND HR HPV DNA POCT urinalysis dipstick manually resulted 2. Encounter for screening mammogram for malignant neoplasm of breast Z12.31 3. Postmenopausal state Z78.0 DEXA bone density Annual Exam: Patient presents today for an annual exam. Patient states she is doing well and has no complaints. Pap was obtained without difficulty. Orders Placed This Encounter Procedures DEXA bone density POCT urinalysis dipstick manually resulted Follow Up: Patient is to return in one year for annual unless needed otherwise. Documented by Anniak Wilkins NP on behalf of: Annika Wilkins NP documented in this encounter [facility] 02-20-2024 Evaluation note Diagnosis Onset Date Resolution Acute bronchitis due to other specified organisms acute February 19 11:13am Cough acute February 20, 2024 11:13am Fatigue acute February 20, 2024 11:13am Acute sinusitis acute May 15, 2024 9:16am [facility] Work Phone: 1(519) 456-212711-04-2024 History of Present illness Narrative* Arianna Matute MD - 01/23/2024 3:15 PM EST Skin Check Location: Patient requests a full body skin examination Dermatologic history: no history of skin cancer, no history of atypical moles, is active outdoors New patient All pertinent medical history, medications, and allergies were reviewed. General Exam: alert, oriented to person, place, and time, normal affect, well appearing Unaccompanied Scalp, Examined , exam limited by hair Right leg Examined Head, Face Examined Left leg Examined Neck Examined Right foot Examined Chest Examined Left foot Examined Back Examined Buttocks Examined Abdomen Examined Digits,nails: Examined Right arm Examined Patient wearing nail kyrgyz, Denies dark streaks on toenails Left arm Examined Lymphatics: Not examined Hands Examined 1. Other seborrheic dermatitis Mid Occipital Scalp Erythema and scale. Flaring today Discussed that seborrheic dermatitis is a chronic condition that can be controlled but not cured. Start fluocinonide soultion prn for flares, hold if clear. Notify office if flaring despite treatment. fluocinonide (Lidex) 0.05 % external solution - Mid Occipital Scalp Apply to affected areas on the scalp, up to twice a day when flared, 30 day supply 2. Capillary angioma Scattered tamayo-red papule(s). The patient was informed that angiomas are benign growths on the the skin. No treatment is necessary. 3. Seborrheic keratosis Stuck on verrucous, santiago-brown papules and plaques. Patient was counseled regarding these benign growths. Removal is normally not necessary, but they may be removed if they are symptomatic or for cosmetic reasons. Next Visit: 1 [id number] Evaluation note* Encounter Date Diagnosis Assessment Notes Treatment Notes Treatment Clinical Notes Feb, RHONDA (generalized anxiety disorder) (ICD-10 - F41.1) Healthy diet and exercise. Referral for counseling. Discussed medical treatment but she declines for now. She is coping well but requesting referral for reassurance and advice Feb, Counseling and coordination of care (ICD-10 - Z71.89) Referral sent for counseling [facility] Other 10-02-2023 Evaluation note* Encounter Date Diagnosis Assessment Notes Treatment Notes Treatment Clinical Notes Dec, Screening for colon cancer (ICD-10 - Z12.11) [facility] Other 05-15-2023 Evaluation note* Encounter Date Diagnosis Assessment Notes Treatment Notes Treatment Clinical Notes July, Acute non-recurrent maxillary sinusitis (ICD-10 - J01.00) Instructed to use Robitussin or Mucinex for cough, saline or Flonase NS for congestion, Tylenol for pain and fever. [facility] Other 02-17-2023 NoteOPERATIVE NOTE OPERATION DATE: 05/07/2022 PROCEDURE: vNOTES hysterectomy with bilateral salpingo-oophorectomy. PREOPERATIVE DIAGNOSIS: Uterine prolapse, vaginal pressure. POSTOPERATIVE DIAGNOSIS: Uterine prolapse, vaginal pressure. ANESTHESIA: General. SURGEON: Verna Mcgarry D.O. DIRECTOR OF WORKFORCE DEVELOPMENT: BLESSING [place] URINE OUTPUT: Yellow and clear. [...] excellent condition. Sponge, lap, needle counts correct x2.[facility] 05-07-2022 NoteOPERATIVE NOTE OPERATION DATE: 05/15/2022 ADDENDUM: Please note patient had uterus and tubes removed from the abdomen through the vagina.[id number] History general Narrative - Reported* Type Description Date Medical History Scoliosis (and kyphoscoliosis), idiopathic Medical History Arthritis of left hip Surgical History Hysterectomy 04/2022 Hospitalization History see surgical history [facility] Other Evaluation noteNo InformationNort [facility] Other Evaluation noteNo assessment information available [facility] Work Phone: Evaluation note* Diagnosis Onset Date Resolution Status Primary osteoarthritis of left hip acute Scoliosis (and kyphoscoliosis), idiopathic acute Wellness examination acute [facility] Work Phone: Evaluation note* Diagnosis Other seborrheic dermatitis- Primary Capillary angioma Nevus, non-neoplastic Seborrheic keratosis documented in this encounter [facility] HealthcareEvaluation note* Diagnosis Well woman exam with routine gynecological exam Routine gynecological examination Encounter for screening mammogram for malignant neoplasm of breast Postmenopausal state Asymptomatic postmenopausal status (age-related) (natural) documented in this encounter [facility] HealthcareEvaluation note* Diagnosis Onset Date Resolution Status Admit Date Osteoporosis acute December 10:59am Primary osteoarthritis of le ft hip acute January 04 10:59am Scoliosis (and kyphoscoliosi s), idiopathic acute January 04 10:59am Wellness examination acute Octo 2024 10:59am [facility] Work Phone: History general Narrative - Reported* Type Description Date Medical History Scoliosis (and kyphoscoliosis), idiopathic Medical History Arthritis of left hip Code [facility] [employer] Other Reason for referral (narrative)* Reason Referral for adoption counselor ing Diagnosis 1 RHONDA (generalized anx iety disorder) (F41.1) Referral Organization [facility] Daphne garcia Referring Provider First Name Alber Referring Provider Last Name Alejandro Referring Provider Specialty Internal Me dicine Referred Organization [facility] Referred Address ,[place], [place],[address] Referred Provider Specialty Social Worke r Clinical Referral Priority Routine General Notes Requesting referral to [facility] counseling: Christa Wilson [employer] Other Reoaqp for referral (narrative)No reason for referral [facility] Work [facility]: Summary Purpose Family History Relationship Condition Age at Onset Recorded Date/T padmini father Diabetes mellitus Unknown Heart disease Unknown Unknown Not Specified Diabetes mellitus Unknown Hypertension Unknown Relationship Condition Age at Onset Recorded Date/T padmini father Diabetes mellitus Unknown Heart disease Unknown Unknown mother Diabetes mellitus Unknown Hypertension Unknown Advance Directives Advance Directive Response Recorded Date/ Time Advance Directives No September 11 3:32pm Advance Directive Response Recorded Date/ Time Advance Directives No February 20, 2024 8:37am Advance Directive Response Recorded Date/ Time Advance Directives No February 20, 2024 9:37am Chief Complaint and Reason for Visit Chief Complaint bilateral hip pain Chief Complaint wellness Reason for Visit Primary osteoarthrit is of left hip Scoliosis (and kyphoscoliosis), idiopathic Wellness examination Chief Complaint Admit Date [phone] cold sinuses a week Decembe r 2023 11:13am COVID-/Cough/Sinuses/Congestion May 15, 2024 9:16am Reason for Visit Admit Date Acute bronchitis due to other specified organisms February 20, 2024 11:13am Cough February 20, 2024 1 1:13am Fatigue February 20, 2024 1 1:13am Acute sinusitis May 15, 2024 9:16am Chief Complaint Admit Date Wellness January 04, 2025 1 0:59am Reason for Visit Admit Date Osteoporosis January 04, 2025 1 0:59am Primary osteoarthritis of left hip Octob er 2024 10:59am Scoliosis (and kyphoscoliosis), idiopath ic January 04, 2025 10:59am Wellness examination January 04, 2025 10:59am Additional Source Comments INFORMATION SOURCE (unrecogn ized section and content) DATE CREATED AUTHOR 06/18/2022 [facility] DATE CREATED AUTHOR AUTHOR'S ORGANIZ ATION 07/18/2024 [facility] EPIC REASON FOR VISIT (unrecogniz ed section and content) Reason Comments Skin Check Reason Comments Well Women Visit Care Teams (unrecognized sec tion and content) Team Status: Active Member Role Status Dates Alber Allen DO Primary Care Provider Active Team Status: Inactive Member Role Status Dates Alber Allen DO Primary Care Provide r, Attending Provider Active Start: 2023 End: 2023 Team Status: Active Member Role Status Dates Alber Allen DO Primary Care Provider Active Start: July 12, 2023 Verna Mcgarry Attending Provider Active Start: 2023 Team Status: Inactive Member Role Status Dates Alber Allen DO Primary Care Provide r, Attending Provider Active Start: September 12, 2023 End: September 12, 2023 Net [employer] Relationship Specialty Start Date End Date Alber Allen MD [address] [place] [address] PCP - General Internal Medicine 07/12/23 [employer] Relationship Specialty Start Date End Date Alber Allen MD [address] [place] [address] PCP - General Internal Medicine 07/12/23 [employer] Relationship Specialty Start Date End Date Alber Allen MD [address] [facility] [place] [phone] PCP - General Internal Medicine 07/12/23 Team Status: Inactive Member Role Status Dates Alber Allen DO Primary Care Provide r, Attending Provider Active Start: February 20, 2024 End: February 20, 2024 Team Status: Inactive Member Role Status Dates Alber Allen DO Primary Care Provide r, Attending Provider Active Start: May 15, 2024 End: May 15, 2024 Net Lead Developer Relationship Specialty Start Date End Date Alber Allen DO [address] [place] [phone] PCP - General Internal Medicine 07/12/23 Net Lead Developer Relationship Specialty Start Date End Date Alber Allen DO [address] [place] [phone] PCP - General Internal Medicine 07/12/23 Team Status: Active Member Role/Relationship Status Dates Alber Allen DO Primary Care Provider Active Team Status: Inactive Member Role/Relationship Status Dates Alber Allen DO Primary Care Provider Active Start: January 04, 2025 End: January 04, 2025 Alber Allen DO Attending Provider Active Sta rt: January 04, 2025 End: January 04, 2025 Goals (unrecognized section and content) Goals may [...] BE BASED ON THE PRIMARY CLINICAL RECORDS. [employer] [facility]. provides no warranty or guarantee of the accuracy or completeness of information in this document.
[2025-01-07 07:29] LABS: Alanine Aminotransferase 23 U/L (14-59); Albumin Globulin Ratio 1.0; Albumin Level 4.1 g/dL (3.4-5.0); Alkaline Phosphatase 77 U/L (46-116); Anion Gap 13.5; Aspartate Amino Transferase 30 U/L (15-37); Blood Urea Nitrogen 14.0 mg/dL (7.0-18.0); Calcium 9.3 mg/dL (8.5-10.1); Carbon Dioxide 27.5 mmol/L (21.0-32.0); Chloride 102 mmol/L (98-107); Cholesterol 245 mg/dL (<=200); Estimated GFR (African America >60 (>=60 mL/min/1.73m^2); Estimated GFR (Non-African Ame >60 (>=60 mL/min/1.73m^2); Globulin 4.1 g/dL; Glucose 103 mg/dL (74-106); HDL Cholesterol 118 mg/dL (40-60); Potassium 4.0 mmol/L (3.5-5.1); Sodium 139 mmol/L (136-145); Thyroid Stimulating Hormone 3.306 uIU/mL (0.358-3.740); Total Protein 8.2 g/dL (6.4-8.2); Triglycerides 71 mg/dL (<=150); VLDL CHOLESTEROL 14.2 mg/dL
[2025-01-07 08:00] LABS: Hematocrit 43.5 % (36.0-48.0); Hemoglobin 15.0 g/dL (12.0-16.0); Immature Granulocytes Abs Auto 0.00 10^3/uL (0.00-0.03); Immature Granulocytes Pct Auto 0.0 % (0.0-0.5); Lymphocytes Absolute Auto 1.8 10^3/uL (1.2-3.8); Mean Corpuscular HGB Conc 34.5 g/dL (29.9-35.2); Mean Corpuscular Hemoglobin 32.6 pg (26.7-34.0); Mean Corpuscular Volume 94.6 fL (81.0-99.0); Platelet Count 252 10^3/uL (150-450); Red Blood Count 4.60 10^6/uL (4.20-5.40); White Blood Count 5.2 10^3/uL (4.0-11.0)
== END 2025-01-07 06:45 | disposition home or self-care (01) ==
LOC: LAB 06:45
PROVIDERS: PCP Internal Medicine; Visit Provider Internal Medicine
DX: Z00.00 Encounter for general adult medical examination without abnormal findings (principal)
CPT/HCPCS: 36415; 80053; 80061; 84443; 85025

== ENCOUNTER 2025-01-19 08:23 | Outpatient (OUT) | payer OTHER, SELFPAY ==
--- NOTE | 2025-01-19 | US_ITS ---
The [address] [address] Patient Name: REILLY VIVAS MRN: [id number] date: 1960 Sex: F Assigned Patient Location: [place] Current Patient Location: Accession/Order Number: [id number] Exam Date: 01/19/2025 08:31 Report Date: 01/20/2025 14:05 At the request of: NICOLE HERNANDEZ DO Procedure: US renal BI BILATERAL RENAL AND BLADDER ULTRASOUND CLINICAL HISTORY: Flank Pain, R10.A0 COMPARISON: None Evaluation degraded due to body habitus. Estimation of renal size is approximately 9.4 x 4.0 x 4.9 cm. on the right and 10.8 x 4.7 x 4.2 cm on the left. No contour deforming mass, shadowing stone or hydronephrosis. The urinary bladder is partially distended with a volume of 110 ml. No shadowing stone or focal lesion. No significant postvoid residual. US/US renal BI IMPRESSION: NO OBSTRUCTIVE UROPATHY. Impression dictated by: Ulysses Allred M.D. 01/20/2025 2:05 PM Dictation Location: [place] [address] Electronically authenticated by: [id number] Y Date: 01/20/2025 14:05
--- OUTSIDE RECORDS SUMMARY | 2025-01-19 08:26 | XMS_ITS | CCD ---
Author Organization [facility] Clini[facility]yp[facility] Care Team Providers Care Rewards Consultant Name Role Phone MALGORZATA ., DR GILLESPIE Attending Unavailable MALGORZATA ., DR GILLESPIE Consulting Unavailable BALL, DR RIVERA Primary Care Unavailable MALGORZATA ., DR GILLESPIE Admitting Unavailable SHARP, YODIT Consulting Unavailable EGOVANY II, NELSON Consulting Unavailable MALGORZATA ., DR [...] Unavailable MALGORZATA ., DR GILLESPIE Attending Unavailable LAGRANGE, DR OXANA Hernandez Consulting Unavailable BALL, DR [...] Provider Alber Allen DO Primary Care Provider [phone] Alber Allen DO Provider [phone] Allergies Allergy ClassificationReported Allergen(s)Allergy TypeDate of OnsetReaction(s) Facility (1 source)AmoxicillinDrug Rpefkqa46-53-4267[facility]ro[facility] Repository (3 sources)PenicillinDrug AllergyUnknowSoutheast [facility] Hospital Easy Ice Other (3 sources)Substance with penicillin structure and antibacterial mechanism of action (substance)Drug -50-9913TBHLRDHPIYMDvukc Easy Ice Other (8 sources)PenicillinsDrug Opoqbqfdvse72-90-8824[facility] Work Phone: Medications Current Medications MedicationDrug Class(es)DatesSig (Normalized)Sig (Original)ascorbic acid 60 mg / cholecalciferol 0.01 mg / folic acid 0.3 mg / niacin 13.5 mg / riboflavin 1.2mg / sodium fluoride 0.55 mg / thiamine 1.05 mg / vitamin a 0.75 mg / vitamin b12 0.0045 mg / vitamin b6 1.05 mg / vitamin e 6.75 mg chewable tablet (8 sources)Nicotinic Acid, Vitamin A, Vitamin B12, Vitamin D, Vitamin CPediatric Multivitamins-Fl (MultiVitamin + Fluoride) 0.25 MG chewable tablet Multivitamin Activecalcium carbonate 1500 mg oral tablet (8 sources)calcium carbonate 1500 (600 Ca) MG tablet every 12 (twelve) hours ActiveCreatine (7 sources)CREATINE PO Take by mouth Activefluocinonide 0.5 mg/ml topical solution (7 sources)CorticosteroidStart: 50-04-5403umkomwpmcuop (Lidex) 0.05 % external solution Indications: Other seborrheic dermatitis Apply to affected areas on the scalp, up to twice a day when flared, 30 day supply 60 mL 11 01/23/2024 Active meloxicam 15 mg oral tablet (7 sources)Nonsteroidal Anti-inflammatory DrugStart: 00-69-7089tltq 1 tablet by mouth once dailyMeloxicam 15 mg tablet Active 0 .ROUTE .COMPLEX 30 November 11, 2023 7:14am TAKE 1 TABLET BY MOUTH EVERY DAY Complies with drug therapy Start: 09-12-2023 End: 02-39-5615faom 1 tablet by mouth once dailyMeloxicam 15 mg tablet Discontinued 15 MG PO Daily 30 30 1 September 12, 2023 12:00am November 11, 2023 7:14amMultivitamin preparation (1 source)Start: 24-46-0140ekgn 1 tablet by mouth once dailyMultivitamin Active 1 TAB PO Daily 2023 12:00amMultivitamin tablet (2 sources)Start: 70-11-0147jimh 1 tablet by mouth once dailyMultivitamin tablet Active 1 TAB PO Daily 2023 12:00am Complies with drug therapyStart: 82-22-9781xkdv 1 tablet by mouth once dailyMultivitamin tablet Active 1 TAB PO Daily December 27, 2023 11:00pm Completed/Discontinued Medications MedicationDrug Class(es)DatesSig (Normalized)Sig (Original)azithromycin 250 mg oral tablet (8 sources)Macrolide AntimicrobialStart: 02-20-2024 End: 50-08-8952Bekhffwzkpqi 250 mg tablet Discontinued 250 MG PO .COMPLEX 6 5 0 May 15, 2024 1:00am 2024 11:08am 2 tabs on first day followed by 1 tab on days 2-5Start: 66-46-9976Qqknquqrbiei 250 MG as directed Orally daily for 5 days Jan, Not-Taking/PRNtiZANidine 4 mg oral tablet (8 sources)Central alpha-2 Adrenergic AgonistStart: 09-12-2023 End: 58-88-0234ngyi 0.5-1 tablets by mouth once at bedtimeStart: 09-12-2023 End: 00-69-0783ubnr 0.5-1 tablets by mouth once at bedtimetake 0.5-1 tablets by mouth once at bedtime Problems Active Problems Problem ClassificationProblemDateDocumented DateEpisodic/ChronicAbdominal pain (2 sources)Pelvic and perineal pain; Translations: [Flank pain]Onset: 05-18-2022 31-35-2315CtlvekhjPxqsf bronchitis (5 sources)Acute bronchitis; Translations: [Acute bronchitis due to other specified organisms]83-30-3985ZowcrosfDzhtailfmgpxwk/social admission (1 source)Other specified counselingEpisodicAnxiety disorders (2 sources)Generalized anxiety disorder; Translations: [Generalized anxiety disorder]ChronicCancer of cervix (4 sources)High grade squamous intraepithelial lesion on cytologic smear of cervix (HGSIL); Translations: [Atypical squamous cells of undetermined significance on cervical Papanicolaou smear]Onset: 08-70-5648Nyhhzipr Immunizations and screening for infectious disease (7 sources)Encounter for screening for human papillomavirus (HPV); Translations: [Contact with and (suspected)exposure to other viral communicable diseases] Onset: 01-30-2022 Resolved: 44-89-8311EwyptkjqLdvumop and fatigue (2 sources)Fatigue; Translations: [Other fatigue]27-80-3261Effuwgeq Osteoarthritis (13 sources)Unilateral primary osteoarthritis, left hip; Translations: [Arthritis of left hip]Onset: 984974-45-2613CpwfkmyFknjzoduhmtp (2 sources)Osteoporosis; Translations: [Age-related osteoporosis without current pathological fracture]62-43-2523CjmelivOysxd bone disease and musculoskeletal deformities (10 sources)Idiopathic scoliosis AND/OR kyphoscoliosis; Translations: [Other idiopathic scoliosis, site unspecified]Onset: 28-56-2078EsvlxhzAqhbu bone disease and musculoskeletal deformities (4 sources)Idiopathic kyphoscoliosis; Translations: [Other idiopathic scoliosis, site unspecified]50-45-6007LnwdxcjEeidv bone disease and musculoskeletal deformities (1 source)Other idiopathic scoliosis, site unspecified; Translations: [Scoliosis [and kyphoscoliosis], idiopathic]98-20-9316RopuwtjWmtet circulatory disease (2 sources)Spider nevus; Translations: [Nevus, non-neoplastic]07-41-6966Wqzmulgc Other inflammatory condition of skin (5 sources)Seborrheic dermatitis; Translations: [Other seborrheic dermatitis] Onset: 707505-71-2063HvbwaoczXawdv lower respiratory disease (2 sources)Cough; Translations: [Cough]08-75-4033KwhslegiOhgwe non-traumatic joint disorders (3 sources)Hip pain; Translations: [Pain in right hip]17-51-4452KwxvvgtxAexxs nutritional; endocrine; and metabolic disorders (3 sources)Overweight; Translations: [Overweight]EpisodicOther screening for suspected conditions (not mental disorders or infectious disease) (11 sources)Encounter for screening for malignant neoplasm of cervix; Translations: [Encounter for screening mammogram for malignant neoplasm of breast]Onset: 11-18-2021 Resolved: 14-43-4157WyvrntldQdgkt skin disorders (2 sources)Seborrheic keratosis; Translations: [Other seborrheic keratosis] 63-59-3922EnuwsbqhGykng upper respiratory disease (3 sources)Vocal cord paralysis; Translations: [Paralysis of vocal cords and larynx, unilateral]ChronicOther upper respiratory infections (12 sources)Acute maxillary sinusitis, unspecified; Translations: [Acute laryngitis]Onset: 78-81-0909VisktgjiFwchstgs of female genital organs (5 sources)Incomplete uterovaginal prolapse; Translations: [INCOMPLETE UTEROVAGINAL PROLAPSE]Onset: 69-10-5653EschwbrVmwdaomz codes; unclassified (5 sources)Asymptomatic menopausal state; Translations: [ASYMPTOMATIC MENOPAUSAL STATE]Onset: 55-02-4945VwkejqadMmoqikyf codes; unclassified (5 sources)Postmenopausal state; Translations: [Asymptomatic menopausal state] 99-95-3723VimosccbOslrxjnlzhm; intervertebral disc disorders; other back problems (1 source)Backache; Translations: [Dorsalgia, unspecified]00-38-2466Dosikfli Past or Other Problems Problem ClassificationProblemDateDocumented DateEpisodic/ChronicOther bone disease and musculoskeletal deformities (1 source)Other specified disorders of bone density and structure, other site; Translations: [OTH D/O BONE DEN STRUCT OTH SITE]Onset: 50-59-2369VkunupkxLvlbt non-traumatic joint disorders (3 sources)Arthralgia of the pelvic region and thigh; Translations: [Pain in joint, pelvic region and thigh]Onset: 62-81-1924UuqqmpabRvgjq nutritional; endocrine; and metabolic disorders (3 sources)Body mass index 25-29 - overweight; Translations: [Body mass index (BMI) 26.0-26.9, adult]Onset: 92-11-4034Yzhhywbu Results Test NameValueInterpretationReference RangeFacilityIGP,APTIMA HPV,AGE GDLNon 07-03-6746IWG GDLN ACOG TESTINGNote.NOMS HealthcareComment on above:TESTS RESULT FLAG UNITS REF RANGE LAB Clinician Provided Cytology Information Source.............Vagina No. of containers..01 ThinPrep Vial Age Waio KD Claudia... 31 01 FLAG LEGEND: L-Low Normal,H-High Normal,LL-Alert Low,HH-Alert High <-Panic Low,>-Panic High,A-Abnormal,AA-Critical Abnormal Performed at: 01 =[address] [address] Karen Caba MD, HPV APTIMANegativeNegativeNOMS HealthcareComment on above:This nucleic acid amplification test detects fourteen high- risk HPV types (16,18,31,33,35,39,45,51,52,56,58,59,66,68) without differentiation. Performed at: =[address] [id number] Law Firm Consultant: Karen Caba MD, Phone: [phone] Performed at: [address] [id number] Law Firm Consultant: Karen Caba MD, Phone: [phone] IGP, APTIMA HPV, RFX 16/18,45Note.NOMS HealthcareComment on above:TESTS RESULT FLAG UNITS REF RANGE LAB DIAGNOSIS: 02 NEGATIVE FOR INTRAEPITHELIAL LESION OR MALIGNANCY. CELLULAR CHANGES ASSOCIATED WITH ATROPHY ARE PRESENT. Specimen adequacy: 02 Satisfactory for evaluation. Endocervical component may not be distinguished in cases of atrophy. Performed by: 02 Chris Strange, Manager Business Systems ([facility]) . 02 Note: Note 02 The Pap [...] <-Panic Low,>-Panic High,A-Abnormal,AA-Critical Abnormal Performed at: [address] [address] Karen Caba MD, SPATULA-ALONE VAGINA CLINISYNCNOSSM Rehab TOMOSYNTHESIS SCREENING BIon 62-35-3520Z[address] [address] Mammography Report Signed Patient: RAEANN VIVSA MR#: [id number] : 1960 Acct:[id number] Age/Sex: 63 / F ADM Date: 04/23/24 Loc: MAMMO Attending Dr: Verna Mcgarry D.O. Ordering Physician: Verna Mcgarry D.O. Results: Date of Service: 04/23/24 Follow Up: Procedure(s): MM tomosynthesis screening BI Accession Number(s): [id number] cc: Alber Allen D.O.; Verna Mcgarry D.O. Patient Name: RAEANN VIVAS MR#: [id number] : 1960 Exam Date: 04/23/2024 Ordering Doctor: [...] Treatments None Family Cancers None LOCATION: [facility] BREAST COMPOSITION: The breasts are extremely dense, [...] Collazo M.D. Signed By: 04/24/24 1618 DD/ 1617 TD/TT: Floor Renovator:TBHRadiology, Radiologist, MD - 04/24/2024 [place] [address] Mammography Report Signed Patient: RAEANN VIVAS MR#: [id number] : 1960 Acct:[id number] Age/Sex: 63 / F ADM Date: 04/23/24 Loc: MAMMO Attending Dr: Verna Mcgarry D.O. Ordering Physician: Verna Mcgarry D.O. Results: Date of Service: 04/23/24 Follow Up: Procedure(s): MM tomosynthesis screening BI Accession Number(s): [id number] cc: Alber Allen D.O.; Verna Mcgarry D.O. Patient Name: RAEANN VIVAS MR#: [id number] : 1960 Exam Date: 04/23/2024 Ordering Doctor: [...] Treatments None Family Cancers None LOCATION: [facility] BREAST COMPOSITION: The breasts are extremely dense, [...] Signed By: 04/24/24 1618 DD/ 16 TD/TT: Floor Renovator: [facility] CenterRadiology Study observation (narrative)[facility] TOMOSYNTHESIS SCREENING BIOrdered By: Radiologist Radiology on 94-18-2138EHAJ Saavn Work Phone: [facility] papilloma virus 16+18+31+33+35+39+45+51+52+56+58+59+66+68 DNA [Presence] in Shreyas 33-36-8708EAP 16+18+31+33+35+39+45+51+52+56+58+59+66+68 DNA Probe+sig amp Ql (Cvx)Negative NegativeMadison HealthComment on above:This nucleic acid amplification test detects fourteen high-risk HPV types (16,18,31,33,35,39,45,51,52,56,58,59,66,68)without differentiation.Performed at: = - [facility] [id number] Director: Karen Caba MD, Phone: [phone] at: [facility] [address] [id number] Director: Karen Caba MD, Phone: [phone] Panel Informationon 14-37-8945PWI High Risk Other CommentNote. Madison HealthComment on above:TESTS RESULT FLAG UNITS REF RANGE LAB DIAGNOSIS: 02 NEGATIVE FOR INTRAEPITHELIAL LESION OR MALIGNANCY. CELLULAR CHANGES ASSOCIATED WITH ATROPHY ARE PRESENT.Specimen adequacy: 02 Satisfactory for evaluation.Performed by: Lilly Chicas, Assembler [employer]ishing [employer] ([employer]). 02Note: Note 02 The Pap smear is a screening test designed to aid in the detection of premalignant and malignant conditions of the uterine cervix. It is not a diagnostic procedure and should not be used as the sole means of detecting cervical cancer. Both false-positive and false-negative reports do occur.Test Methodology: Note 02 This liquid based ThinPrep(R) pap test wasscreened with the use of an image guided system.HPV Genotype Reflex Note 02 Criteria not met, HPV Genotype not performed. FLAG LEGEND: L-Low Normal,H-High Normal,LL-Alert Low,HH-Alert High <-Panic Low,>- Panic High,A-Abnormal,AA-Critical Abnormal Performed at:02 [address] [facility] [place] [address] Karen Caba MD, Rzbisiqfb Lab Test Patient Maddy.Madison HealthComment on above:TESTS RESULT FLAG UNITS REF RANGE LAB Clinician Provided Cytology Information Source.............Vagina No. of containers..01 ThinPrep VialAge Adrián YI Claudia... 30-65 01 FLAG LEGEND: L- Low Normal,H-High Normal,LL-Alert Low,HH-Alert High <-Panic Low,>-Panic High,A-Abnormal,AA-Critical Abnormal Performed at:01 =G [facility] [address] [facility] [address] Karen Caba MD, EBL W MANUAL DIFFon 85-47-0765EWDSITRZ LYMPH # NormalThe Whitefish HospitalComment on above:Performed By: #### SARAH #### [facility] [address] [place] [address] Dr. Bradley De OliveiraATYPICAL LYMPH %NormalThe Whitefish HospitalComment on above: Performed By: #### SARAH #### [facility] [address] [address] [address] Bradley Vincent #Normal0.0-0.3The [facility] HospitalComment on above: Performed By: #### SARAH #### [facility] [address] [place] [address] Dr. Bradley Vincent %Normal0-5The [facility] HospitalComment on above:Performed By: #### SARAH #### [facility] [address] [place] [address] Dr. Bradley Nichole #0.00 103/ulNormal0.00-0.10The [facility] HospitalComment on above:Performed By: #### SARAH #### [facility] [address] [place] [address] Dr. Bradley Nichole %0.0 %Critically low0.2-2.0The [facility] HospitalComment on above:Performed By: #### SARAH #### [facility] [address] [place] [address] Dr. Bradley Sanchez #NormalThe Whitefish HospitalComment on above:Performed By: #### SARAH #### [facility] [address] [place] [address] Dr. Bradley Sanchez %NormalThe [facility] HospitalComment on above:Performed By: #### SARAH #### [facility] [address] [place] [address] Dr. Bradley GrayRRECTED WBCNormal4.0-11.0The [facility] HospitalComment on above: Performed By: #### SARAH #### [facility] [address] [place] [address] Dr. Bradley Coates #0.00 103/ulNormal0.00-0.70The [facility] HospitalComment on above:Performed By: #### SARAH #### [facility] [address] [place] [address] Dr. Bradley Coates%0.0 %Critically low0.9-7.0The [facility] HospitalComment on above:Performed By: #### SARAH #### [facility] [address] [place] [address] Dr. Bradley CarbajalT40.8 %Rkcehf87.0-48.0The [facility] HospitalComment on above: Performed By: #### SARAH #### [facility] [address] [place] [address] Dr. Bradley De OliveiraHGB14.0 g/wwEkboep96.0-16.0The [facility] HospitalComment on above: Performed By: #### SARAH #### [facility] [address] [place] [address] Dr. Bradley Carpio #0.22 103/ulCritically low1.20-3.80The [facility] Comment on above:Performed By: #### SARAH #### [facility] [address] [place] [address] Dr. Bradley Carpio%2.0 %Critically low20.5-60.0The [facility] HospitalComment on above:Performed By: #### SARAH #### [facility] [address] [place] [address] Dr. Bradley HigginbothamH31.3 eiQyuems42.7-34.0The [facility] HospitalComment on above: Performed By: #### SARAH #### [facility] [address] [place] [address] Dr. Bradley HigginbothamHC34.3 g/guInnstd54.9-35.2The [facility] HospitalComment on above:Performed By: #### SARAH #### [facility] [address] [place] [address] Dr. Bradley HigginbothamV91.3 eNLfbbbe05.0-99.0The [facility] HospitalComment on above: Performed By: #### SARAH #### [facility] [address] [address] [address] Bradley PiedraOCYTE #NormalMercy Health St. Vincent Medical CenterComment on above: Performed By: #### SARAH #### [facility] [address] [address] [address] Bradley PiedraOCYTE %NormalThe [facility] HospitalComment on above: Performed By: #### SARAH #### [facility] [address] [address] [address] Bradley Rodriguez#0.44 103/ulNormal0.30-0.80The [facility] HospitalComment on above:Performed By: #### SARAH #### [facility] [address] [place] [address] Dr. Bradley Rodriguez%4.0 %Normal1.7-12.0The [facility] HospitalComment on above: Performed By: #### SARAH #### [facility] [address] [place] [address] Dr. Bradley De OliveiraMPV9.3 fLCritically low9.5-13.5ThSelect Medical Specialty Hospital - YoungstownCommarshfield medical center on above:Performed By: #### SARAH #### [facility] [address] [place] [address] Dr. Bradley Rincon #NormalMercy Health St. Vincent Medical CenterCommarshfield medical center on above:Performed By: #### SARAH #### [facility] [address] [place] [address] Dr. Bradley Rincon %NormalMercy Health St. Vincent Medical CenterCommarshfield medical center on above:Performed By: #### CBCALEXIS #### [facility] [address] [place] [address] Dr. Bradley De OliveiraNRBCNormalThSelect Medical Specialty Hospital - YoungstownCommarshfield medical center on above:Performed By: #### SARAH #### [facility] [address] [place] [address] Dr. Bradley De OliveiraPLT293 103/dcEplrfs329-588Ged [facility] HospitalComment on above: Performed By: #### CBCMAN #### [facility] [address] [address] [address] Bradley MorochoC4.47 106/ulNormal4.20-5.40The [facility] HospitalComment on above:Performed By: #### CBCALEXIS #### [facility] [address] [place] [address] Dr. Bradley De OliveiraRDW12.4 %Usatzm66.0-15.0The [facility] HospitalComment on above: Performed By: #### CBCALEXIS #### [facility] [address] [place] [address] Dr. Bradley Rebolledo #10.34 103/ulCritically high1.40-6.50The [facility] Comment on above:Performed By: #### OCTAVIOMAN #### [facility] [address] [place] [address] Dr. Bradley Rebolledo %94.0 %Critically high43.0-75.0The [facility] HospitalComment on above:Performed By: #### OCTAVIOMAN #### [facility] [address] [place] [address] Dr. Bradley ValentineBC11.0 103/ulNormal4.0-11.0The [facility] HospitalComment on above:Performed By: #### OCTAVIOMAN #### [facility] [address] [place] [address] Dr. Bradley Bowles AUTO DIFFon 11-49-3760QRSH #0.0 103/ulNormal0.0-0.1The [facility] HospitalComment on above:Performed By: #### [id number] #### [facility] [address] [place] [address] Dr. Bradley Deckersophils/100 WBC (Bld)0.5 %Normal0.2-2.0The [facility] Comment on above:Performed By: #### [id number] #### [facility] [address] [place] [address] Dr. Bradley Spaulding #0.1 103/ulNormal0.0-0.7The [facility] HospitalComment on above: Performed By: #### [id number] #### [facility] [address] [place] [address] Dr. Bradley Hendricksosinophils/100 WBC (Bld)1.7 %Normal0.9-7.0The [facility] Comment on above:Performed By: #### [id number] #### [facility] [address] [place] [address] Dr. Bradley Hendricksrythrocyte distribution width (RBC) [Ratio]12.4 %Mfitey13.0-15.0 The [facility] HospitalComment on above:Performed By: #### [id number] #### [facility] [address] [place] [address] Dr. Bradley De OliveiraHematocrit (Bld) [Volume fraction]39.9 %Nmiulm62.0-48.0The [facility] HospitalComment on above:Performed By: #### [id number] #### [facility] [address] [place] [address] Dr. Bradley De OliveiraHemoglobin (Bld) [Mass/Vol]14.0 g/fEGjoopn06.0-16.0The [facility] HospitalComment on above:Performed By: #### [id number] #### [facility] [address] [place] [address] Dr. Bradley Donald #0.02 10e3/ulNormal0.00-0.03The [facility]wood Medical Centerment on above:Performed By: #### [id number] #### [facility] [address] [place] [address] Dr. Bradley Donald %0.3 %Normal0.0-0.5The [facility] HospitalComment on above: Performed By: #### [id number] #### [facility] [address] [place] [address] Dr. Bradley Goodrich #2.5 103/ulNormal1.2-3.8The [facility] HospitalComment on above:Performed By: #### [id number] #### [facility] [address] [place] [address] Dr. Yilan ChangLymphocytes/100 WBC (Bld)38.7 %Zqhiwc99.5-60.0The [facility] HospitalComment on above:Performed By: #### [id number] #### [facility] [address] [place] [address] Dr. Bradley Magaña DIFF REQNONormalThe [facility] HospitalComment on above: Performed By: #### [id number] #### [facility] [address] [place] [address] Dr. Bradley Higginbotham (RBC) [Entitic mass]31.7 nyWecrnh22.7-34.0The [facility] HospitalComment on above:Performed By: #### [id number] #### [facility] [address] [place] [address] Dr. Bradley Higginbotham (RBC) [Mass/Vol]35.1 g/iQAbgyfe48.9-35.2The [facility] HospitalComment on above:Performed By: #### [id number] #### [facility] [address] [place] [address] Dr. Bradley Higginbotham (RBC) [Entitic vol]90.3 eDTrubbf25.0-99.0The [facility] HospitalComment on above:Performed By: #### [id number] #### [facility] [address] [place] [address] Dr. Bradley Aleman #0.4 103/ulNormal0.3-0.8The [facility] HospitalComment on above:Performed By: #### [id number] #### [facility] [address] [place] [address] Dr. Bradley Torresocytes/100 WBC (Bld)6.1 %Normal1.7-12.0The [facility] Comment on above:Performed By: #### [id number] #### [facility] [address] [place] [address] Dr. Bradley Davis #3.5 103/ulNormal1.4-6.5The [facility] HospitalComment on above:Performed By: #### [id number] #### [facility] [address] [address] [address] Bradley Reesutrophils/100 WBC (Bld)52.7 %Wxhwbq49.0-75.0The [facility] Medical Centerment on above:Performed By: #### [id number] #### [facility] [address] [place] [address] Dr. Bradley De OliveiraPlatelet mean volume (Bld) [Entitic vol]9.3 fLCritically low 9.5-13.5The [facility] HospitalComment on above:Performed By: #### [id number] #### [facility] [address] [place] [address] Dr. Bradley De OliveiraPLT304 103/weQremhu786-832Qug [facility]tering [facility] HospitalComment on above: Performed By: #### [id number] #### [facility] [address] [place] [address] Dr. Bradley De OliveiraRBC4.42 106/ulNormal4.20-5.40The [facility] HospitalComment on above:Performed By: #### [id number] #### [facility] [address] [place] [address] Dr. Bradley De OliveiraWBC6.6 103/ulNormal4.0-11.0The [facility] Medical Centerment on above: Performed By: #### [id number] #### [facility] [address] [place] [address] Dr. Bradley De OliveiraTYPE AND SCREENon 69-92-9302ERHW AND SCREENNegativeNoAccess Hospital DaytonComment on above:Performed By: #### TNS #### [facility] [address] [place] [address] Dr. Bradley De OliveiraPap IG,rfx Aptima HPV all pthon 02-04-2022..NormalThe [facility] on above:Performed By: #### [id number] #### [facility] [address] [place] [address] Dr. Bradley De OliveiraDIAGNOSIS:CommentNoAccess Hospital DaytonComment on above: Result Comment: NEGATIVE FOR INTRAEPITHELIAL LESION OR MALIGNANCY.Performed By: #### [id number] #### [place] [address] Dr. Bradley De OliveiraMethodology:CommentUniversity Hospitals TriPoint Medical Center on above: Result Comment: This liquid based ThinPrep(R) pap test was screened with the use of an image guided system.Performed By: #### [id number] #### [place] [address] Dr. Bradley De OliveiraNote:CommentUniversity Hospitals TriPoint Medical Center on above:Result Comment: The Pap smear is a screening test designed to aid in the detection of premalignant and malignant conditions of the uterine cervix. It is not a diagnostic procedure and should not be used as the sole means of detecting cervical cancer. Both false-positive and false-negative reports do occur. .Performed By: #### [id number] #### [place] [address] Dr. Bradley De OliveiraPerformed by:CommentUniversity Hospitals TriPoint Medical Center on above: Result Comment: Elise Sauer, [employer] (ASCP)Performed By: #### [id number] #### [place] [address] Dr. Bradley De OliveiraQC reviewed by:[facility] on above:Result Comment: Kiesha Gatica, Supervisory [employer] (ASCP)Performed By: #### [id number] #### [place] [address] Dr. Bradley De OliveiraReflex Criteria:CommentUniversity Hospitals TriPoint Medical Center on above:Result Comment: The HPV DNA reflex criteria were not met with this specimen result therefore, no HPV testing was performed. .Performed By: #### [id number] #### [place] [address] Dr. Bradley De OliveiraSpecimen adequacy:[facility] on above:Result Comment: Satisfactory for evaluation. Endocervical component may not be distinguished in cases of atrophy.Performed By: #### [id number] #### [facility] [address] [place] [address] [address] Bradley Bowles AUTO DIFFon [id number] #0.0 103/ulNormal0.0-0.1The [facility] HospitalComment on above:Performed By: #### CBC #### [facility] [address] [address] [address] Bradley De OliveiraBasophils/100 WBC (Bld)0.7 %Normal0.2-2.0[facility] Comment on above:Performed By: #### CBC #### [facility] [address] [place] [address] Dr. Bradley Spaulding #0.2 103/ulNormal0.0-0.7The [facility] HospitalComment on above: Performed By: #### CBC #### [facility] [address] [place] [address] Dr. Bradley Hendricksosinophils/100 WBC (Bld)3.7 %Normal0.9-7.0The [facility] Comment on above:Performed By: #### CBC #### [facility] [address] [place] [address] Dr. Bradley Hendricksrythrocyte distribution width (RBC) [Ratio]12.4 %Vbcfcp22.0-15.0 The [facility] HospitalComment on above:Performed By: #### CBC #### [facility] [address] [place] [address] Dr. Bradley De OliveiraHematocrit (Bld) [Volume fraction]44.2 %Gwsjit45.0-48.0The [facility] HospitalComment on above:Performed By: #### CBC #### [facility] [address] [place] [address] Dr. Bradley De OliveiraHemoglobin (Bld) [Mass/Vol]14.9 g/gHIuptkf32.0-16.0The [facility] HospitalComment on above:Performed By: #### CBC #### [facility] [address] [place] [address] Dr. Bradley Donald #0.01 10e3/ulNormal0.00-0.03The [facility] HospitalComment on above:Performed By: #### CBC #### [facility] [address] [place] [address] Dr. Bradley Donald %0.2 %Normal0.0-0.5The [facility] HospitalComment on above: Performed By: #### CBC #### [facility] [address] [place] [address] Dr. Bradley Goodrich #1.7 103/ulNormal1.2-3.8The [facility] HospitalComment on above:Performed By: #### CBC #### [facility] [address] [place] [address] Dr. Bradley Velahocytes/100 WBC (Bld)39.6 %Mfnpgm51.5-60.0The [facility] HospitalComment on above:Performed By: #### CBC #### [facility] [address] [place] [address] Dr. Bradley Magaña DIFF REQNONormalThe [facility] HospitalComment on above: Performed By: #### CBC #### [facility] [address] [place] [address] Dr. Bradley Menjivar (RBC) [Entitic mass]31.6 uoZapfse96.7-34.0The [facility] HospitalComment on above:Performed By: #### CBC #### [facility] [address] [place] [address] Dr. Bradley Higginbotham (RBC) [Mass/Vol]33.7 g/sBTzjlir53.9-35.2The [facility] HospitalComment on above:Performed By: #### CBC #### [facility] [address] [place] [address] Dr. Bradley Higginbotham (RBC) [Entitic vol]93.6 eIWmfutw90.0-99.0The [facility] HospitalComment on above:Performed By: #### CBC #### [facility] [address] [place] [address] Dr. Bradley Aleman #0.4 103/ulNormal0.3-0.8The [facility] HospitalComment on above:Performed By: #### CBC #### [facility] [address] [place] [address] Dr. Bradley Torresocytes/100 WBC (Bld)9.5 %Normal1.7-12.0The [facility] Comment on above:Performed By: #### CBC #### [facility] [address] [place] [address] Dr. Bradley Davis #2.0 103/ulNormal1.4-6.5The [facility] HospitalComment on above:Performed By: #### CBC #### [facility] [address] [place] [address] Dr. Bradley Reesutrophils/100 WBC (Bld)46.3 %Dqjjfu99.0-75.0The [facility] HospitalComment on above:Performed By: #### CBC #### [facility] [address] [place] [address] Dr. Bradely Liulet mean volume (Bld) [Entitic vol]9.3 fLCritically low 9.5-13.5The [facility] HospitalComment on above:Performed By: #### CBC #### [facility] [address] [place] [address] Dr. Bradley De OliveiraPLT279 103/qtHnvzzn073-414Iak [facility] HospitalComment on above: Performed By: #### CBC #### [facility] [address] [place] [address] Dr. Bradley De OliveiraRBC4.72 106/ulNormal4.20-5.40The [facility] HospitalComment on above:Performed By: #### CBC #### [facility] [address] [place] [address] Dr. Bradley De OliveiraWBC4.3 103/ulNormal4.0-11.0The [facility] HospitalComment on above: Performed By: #### CBC #### [facility] [address] [place] [address] Dr. Bradley De OliveiraLIPID PROFILEon 58-71-9809XDPF-HDL RATIO NORMSThe Surgical Hospital at SouthwoodsCommarshfield medical center on above:Result Comment: 3.3 - 4.4 LOW RISK 4.4 - 7.1 AVERAGE RISK 7.1 - 11.0 MODERATE RISK >11.0 HIGH RISKPerformed By: #### CMP, LIPID, TSH #### [facility] [address] [address] [address] Bradley De OliveiraCholesterol [Mass/Vol]223 mg/dLCritically high<=200The [facility] on above:Performed By: #### CMP, LIPID, TSH #### [facility] [address] [place] [address] Dr. Bradley De OliveiraCholesterol in HDL [Mass/Vol]108 mg/dLCritically jeew34-11LbeUniversity Hospitals TriPoint Medical Center on above:Performed By: #### CMP, LIPID, TSH #### [facility] [address] [place] [address] Dr. Bradley De OliveiraCholesterol in LDL [Mass/Vol]100.6 mg/dLUniversity Hospitals TriPoint Medical Center on above:Performed By: #### CMP, LIPID, TSH #### [facility] [address] [place] [address] Dr. Bradley Isaacs.total/Cholesterol in HDL [Mass ratio]2.1 {ratio} NormalUniversity Hospitals TriPoint Medical Center on above:Performed By: #### CMP, LIPID, TSH #### [facility] [address] [place] [address] Dr. Bradley Zhang NORMAL> or = 60 mg/dl - LOW CARDIOVASCULAR RISK <40 mg/dl - HIGH CARDIOVASCULAR RISKUniversity Hospitals TriPoint Medical Center on above:Performed By: #### CMP, LIPID, TSH #### [facility] [address] [place] [address] Dr. Bradley De OliveiraLDL CALC NORMALSEE [facility] on above:Result Comment: <100 mg/dl OPTIMAL 100 - 129 mg/dl NEAR OR ABOVE OPTIMAL 130 - 159 mg/dl BORDERLINE HIGH 160 - 189 mg/dl HIGH >190 mg/dl VERY HIGH Performed By: #### CMP, LIPID, TSH #### [facility] [address] [address] [address] Bradley De OliveiraTriglyceride [Mass/Vol]72 mg/dLNormal<=150The [facility] Comment on above:Performed By: #### CMP, LIPID, TSH #### [facility] [address] [address] [address] Bradley De OliveiraVLDL CALC14.4 mg/dLNormalThe [facility] HospitalComment on above: Performed By: #### CMP, LIPID, TSH #### [facility] [address] [address] [address] Bradley De OliveiraPROF 14(COMP METB)on 58-82-8653Hrnjepc [Mass/Vol]4.2 g/dLNormal 3.4-5.0The [facility] HospitalComment on above:Performed By: #### CMP, LIPID, TSH #### [facility] [address] [place] [address] Dr. Bradley De OliveiraAlbumin/Globulin [Mass ratio]1.1 {ratio}NormalThe [facility] HospitalComment on above:Performed By: #### CMP, LIPID, TSH #### [facility] [address] [place] [address] Dr. Bradley Ramos [Catalytic activity/Vol]77 U/ZKlfmud68-710Jmg [facility] HospitalComment on above:Performed By: #### CMP, LIPID, TSH #### [facility] [address] [address] [address] Bradley Torres [Catalytic activity/Vol]24 U/ICbphyx05-47Lho [facility] HospitalComment on above:Performed By: #### CMP, LIPID, TSH #### [facility] [address] [address] [address] Bradley Carbajal gap [Moles/Vol]12.7 mmol/LNormalThe [facility] Comment on above:Performed By: #### CMP, LIPID, TSH #### [facility] [address] [address] [address] Bradley Robert [Catalytic activity/Vol]25 U/DXjnnor60-08Qdh [facility] HospitalComment on above:Performed By: #### CMP, LIPID, TSH #### [facility] [address] [address] [address] Bradley De OliveiraBilirubin [Mass/Vol]0.4 mg/dLNormal0.2-1.0[facility] Comment on above:Performed By: #### CMP, LIPID, TSH #### [facility] [address] [place] [address] Dr. Bradley De OliveiraCalcium [Mass/Vol]9.3 mg/dLNormal8.5-10.1The [facility] Comment on above:Performed By: #### CMP, LIPID, TSH #### [facility] [address] [place] [address] Dr. Bradley De OliveiraChloride [Moles/Vol]102 mmol/FDdszfy36-629Cox [facility] Comment on above:Performed By: #### CMP, LIPID, TSH #### [facility] [address] [place] [address] Dr. Bradley De OliveiraCO2 [Moles/Vol]28.2 mmol/YBrslhw94.0-32.0The [facility] Comment on above:Performed By: #### CMP, LIPID, TSH #### [facility] [address] [place] [address] Dr. Bradley De OliveiraCreatinine [Mass/Vol]0.60 mg/dLNormal0.55-1.02The [facility] HospitalComment on above:Performed By: #### CMP, LIPID, TSH #### [facility] [address] [place] [address] Dr. Bradley HendricksGFR-AF SERBIAN>60Normal>=60The [facility] HospitalComment on above:Performed By: #### CMP, LIPID, TSH #### [facility] [address] [place] [address] Dr. Bradley HendricksGFR-NON AF SERBIAN>60Normal>=60The [facility] HospitalComment on above:Performed By: #### CMP, LIPID, TSH #### [facility] [address] [place] [address] Dr. Bradley De OliveiraGlobulin (S) [Mass/Vol]3.7 g/dLNormCleveland Clinic Akron GeneralComment on above:Performed By: #### CMP, LIPID, TSH #### [facility] [address] [address] [address] Bradley De OliveiraGlucose [Mass/Vol]89 mg/kNMdpfvj57-955KfeMercy Health St. [facility] Medical Center Comment on above:Performed By: #### CMP, LIPID, TSH #### [facility] [address] [place] [address] Dr. Bradley De OliveiraPotassium [Moles/Vol]3.9 mmol/LNormal3.5-5.1[facility] Comment on above:Performed By: #### CMP, LIPID, TSH #### [facility] [address] [place] [address] Dr. Bardley De OliveiraProtein [Mass/Vol]7.9 g/dLNormal6.4-8.2The [facility] Comment on above:Performed By: #### CMP, LIPID, TSH #### [facility] [address] [place] [address] Dr. Bradley De OliveiraSodium [Moles/Vol]139 mmol/VWmpobn446-647Cbu [facility] Comment on above:Performed By: #### CMP, LIPID, TSH #### [facility] [address] [place] [address] Dr. Bradley De OliveiraUrea nitrogen [Mass/Vol]14.0 mg/dLNormal7.0-18.0The [facility] HospitalComment on above:Performed By: #### CMP, LIPID, TSH #### [facility] [address] [place] [address] Dr. Bradley De OliveiraUrea nitrogen/Creatinine [Mass ratio]23.3 mg/mgNoAccess Hospital DaytonComment on above:Performed By: #### CMP, LIPID, TSH #### [facility] [address] [place] [address] Dr. Bradley Monson 17-62-6509ZVQ4.453 uIU/mLNormal0.358-3.740[facility] Vincent Medical CenterComment on above:Performed By: #### CMP, LIPID, TSH #### [facility] [address] [id number] Bradley De OliveiraMG MAMM SCREEN 3D DEJA CADon 86-44-3495BP MAMM SCREEN 3D DEJA CAD Patient: RAEANN VIVAS Exam Date: 11/17/2021 : 1960 Gender:F Ordering : DR VERNA MCGARRY . Admission #: [id number] Family : Order #: [id number] CLICK HERE TO VIEW EXAM RADIOLOGY REPORT [...] Treatments None Family Cancers None LOCATION: [facility] BREAST COMPOSITION: Extremely dense, which lowers [...] by: Oxana Ortega MD on 11/18/2021 at 08:11[facility] HospitalXR DEXA BONE DENSITYon 98-73-7192XK DEXA BONE DENSITYEXAMINATION: XR DEXA BONE DENSITY, 11/17/2021 2:57 PM [...] Electronically authenticated by: MIGUE COLLAZO Date: 2021-11-17 15:54[facility] HospitalPap IG, rfx Aptima HPV ASCUon 07-30-2021..NormalThe [facility] HospitalComment on above:Performed By: #### [id number] #### [facility] [address] [place] [address] Dr. Bradley De OliveiraDIAGNOSIS:CommentAbPomerene Hospitalment on above: Result Comment: EPITHELIAL CELL ABNORMALITY. ATYPICAL SQUAMOUS CELLS OF UNDETERMINED SIGNIFICANCE (ASC-US).Performed By: #### [id number] #### [facility] [address] [place] [address] Dr. Huerta ChangElectronically signed by:[facility] Comment on above:Result Comment: Lucy Pizarro MD, PathologistPerformed By: #### [id number] #### [facility] [address] [place] [address] Dr. Bradley De OliveiraHPV AptimaPositiveAbnormalNegativeUniversity Hospitals TriPoint Medical Center on above:Result Comment: This nucleic acid amplification test detects fourteen high-risk HPV types (16,18,31,33,35,39,45,51,52,56,58,59,66,68) without differentiation.Performed By: #### [id number] #### [facility] [address] [place] [address] Dr. Bradley De OliveiraMethodology:CommentNoWilson Health on above: Result Comment: This liquid based ThinPrep(R) pap test was screened with the use of an image guided system.Performed By: #### [id number] #### [place] [address] Dr. Bradley De OliveiraNote:CommentUniversity Hospitals TriPoint Medical Center on above:Result Comment: The Pap smear is a screening test designed to aid in the detection of premalignant and malignant conditions of the uterine cervix. It is not a diagnostic procedure and should not be used as the sole means of detecting cervical cancer. Both false-positive and false-negative reports do occur. .Performed By: #### [id number] #### [facility] [address] [place] [address] Dr. Bradley De OliveiraPathologist Provided NUW49AimazecIwgbnzPdmOhio State [facility] Comment on above:Result Comment: R87.610Performed By: #### [id number] #### [facility] [address] [place] [address] Dr. Bradley De OliveiraPerformed by:CommentUniversity Hospitals TriPoint Medical Center on above: Result Comment: Kathryn Braun, As[employer] (ASCP)Performed By: #### [id number] #### [facility] [address] [place] [address] Dr. Bradley De OliveiraReflex Criteria:CommentUniversity Hospitals TriPoint Medical Center on above:Result Comment: See below for HPV testing results. .Performed By: #### [id number] #### [facility] [address] [place] [address] Dr. Bradley De OliveiraSpecimen adequacy:[facility] on above:Result Comment: Satisfactory for evaluation. Endocervical and/or squamous metaplastic cells (endocervical component) are present.Performed By: #### GAIS67L #### [facility] [address] [place] [address] Dr. Bradley De Oliveira Vital Signs Date TimeVital SignValuePerforming CtlqdeojaEjmcyrpn08-24-0493 11:10Body aenbji540.67 cmBenClover DO Work Phone: [facility]10-17-2025 11:10-040 Body mass index (BMI) [Ratio]27.6 kg/p1Ozslwrim Ball DO Work Phone: [facility]10-17-2025 11:10040 Body arwvcr24.31 kgBenClover DO Work Phone: [facility]10-17-2025 11:10-040 Diastolic blood mm[Hg]Alber Ball DO Work Phone: [facility]10-17-2025 11:10-0400 Heart aoug002 /minBenjamin Ball DO Work Phone: [facility]10-17-2025 11:10-0400 Respiratory rate12 /minBenjamin Ball DO Work Phone: [facility]10-17-2025 11:10-0400 Systolic blood zgakgcql648 mm[Hg]Alber Ball DO Work Phone: [facility]04-29-2025 09:20-0400 Body syjvfs708.2 cmAnnika Wilkins FOREST ECOLOGIST Work Phone: [facility] CenterDfknldcong25-00-1012 09:20-0400Body mass index (BMI) [Ratio]27.05 kg/a0HgqthcrlAnnika Wilkins FOREST ECOLOGIST Work Phone: [phone] [place], [place] [address]Bvnrjbanvm95-82-6562 09:20-0400Body kzyynz89 kg Annika iWlkins FOREST ECOLOGIST Work Phone: [phone] [place], [place] [address]Ldsbuwkxmf99-11-4692 09:20-0400Diastolic blood guapkdoz74 mm[Hg]Annika Wilkins FOREST ECOLOGIST Work Phone: [phone] [place], [place] [address]Jzzklmlyjd95-25-3360 09:20-0400Systolic blood oikxwbus282 mm[Hg]Annika Wilkins FOREST ECOLOGIST Work Phone: [phone]-[facility] CenterZhpqgnzpcf57-34-2775 09:21-0500Body zvsgfy998.67 cmMadison Health02-25-2025 09:21-0500Body mass index (BMI) [Ratio]29.2 kg/h8YctuvqdqsMadison Health02-25-2025 09:21-0500Body kgMadison Health02-25-2025 09:21-0500Diastolic blood mm[Hg][facility]02-25-2025 09:21-0500Heart rate93 /[facility]02-25-2025 09:21-0500Respiratory rate12 /[facility]02-25-2025 09:21-0500Systolic blood mdbiuljs788 mm[Hg][facility]10-09-2024 09:54-0400Body leljym588.67 cmMadison Health10-09-2024 09:54-0400Body mass index (BMI) [Ratio]29.2 kg/p6SamaihflyMadison Health10-09-2024 09:54-0400Body gujnow75.05 kgMadison Health10-09-2024 09:54-0400Diastolic blood uxaxljvk74 mm[Hg][facility] 2023 09:54-0400Heart rate75 /[facility] 2023 09:54-0400Respiratory rate12 /[facility] 2023 09:54-0400Systolic blood uvsmeqzz399 mm[Hg][facility]06-24-2024 15:46-0400Body .67 cmMadison Health06-24-2024 15:46-0400Body mass index (BMI) [Ratio]28.6 kg/i4ZohvpnhtkMadison Health06-24-2024 15:46-0400Body fjecog05.69 kgMadison Health06-24-2024 15:46-0400Diastolic blood kmhxszfy15 mm[Hg] [facility]06-24-2024 15:46-0400Heart rate78 /[facility]06-24-2024 15:46-0400Respiratory rate12 /[facility]06-24-2024 15:46-0400Systolic blood dobkbdhv311 mm[Hg] [facility]12-29-2023 09:00-0500Body .67 cm Alber Ball Other [employer] Other [id number] 09:00-0500Body mass index (BMI) [Ratio] 28.08 kg/m9Xwbcuxvj Ball Other [employer] Other 12-29-2023 09:00-0500Body iiguge73.32 kgBegeorge Allen Other [facility] [employer] Other 12-29-2023 09:00-0500Diastolic blood cagddcmb46 mm[Hg] Alber Allen Other [facility] [employer] Other 12-29-2023 09:00-0500Respiratory rate12 /minAlber Allen Other [facility] [employer] Other 12-29-2023 09:00-0500Systolic blood qoewdfrx448 mm[Hg] Alber Allen Other [facility] [employer] Other Encounters Encounter DateEncounter TypeCare ProviderFacilityStart: 01-04-2025 End: 34-62-7291hhanbxoeasUrzdxmcs Ball DO Work Phone: -[facility] Rapidstart: 01-04-2025 End: 49-82-5692Dntdkfm encounter procedureBegeorge Allen DO-[facility] Work Phone: Start: 01-04-2025 End: 19-34-9948Kaxgwjt encounter statusBegeorge Allen [facility] Hospitaltart: 07-17-2024 End: 03-74-9220Yncoix flowsheetAnnika Wilkins FOREST ECOLOGIST Work Phone: [facility] OBStart: 07-17-2024 End: 78-20-4632Ylxlxr flowsheetAnnika Wilkins FOREST ECOLOGIST Work Phone: [facility] OBStart: 07-17-2024 End: 97-83-1659Wzkcjyxpv Result EncounterAnnika Wilkins FOREST ECOLOGIST Work Phone: noms External Department UnsolicitedStart: 07-17-2024 End: 80-50-0208Ggbdkfg encounter procedureAnnika Wilkins NP Work Phone: noMS HealthcareStart: 07-17-2024 End: 57-64-9751Mwtwuvxg preventive med est patient 40-64yrsKristina Claudette DARDEN Work Phone: noms BCP OBComment on above:Well woman exam with routine gynecological exam; Encounter for screening mammogram for malignant neoplasm of breast; Postmenopausal stateStart: 07-17-2024 End: 44-60-9300jcjuygzwwlIUSJYKZO EBERLYNot AvailableStart: 05-15-2024 End: 86-92-3147mduauuescwUuwedtgnnC[facility] Clinic [facility] Work Phone: Start: 05-15-2024 End: 91-93-1105Pzezllm encounter procedureAtrium Health [facility] Work Phone: Start: 04-24-2024 End: 21-97-7246Qavsctiue Result EncounterCorey Malgorzata DO Work Phone: n[facility] External Department UnsolicitedStart: 04-24-2024 End: 17-62-7813Xxfbfnlri Result EncounterCorey Malgorzata DO Work Phone: [facility] External Department UnsolicitedStart: 02-20-2024 End: 71-27-4151Wyegvoz encounter procedureAtrium Health Phys[facility] Work Phone: Start: 01-23-2024 End: 89-49-1361Frnqcy outpatient new 45 minutesEmalli Matute MD Work Phone: noms SWS DERMComment on above:Other seborrheic dermatitis (Primary Dx); Capillary angioma; Seborrheic keratosisStart: 01-23-2024 End: 14-43-7932sgfvepgyavZDLAK A PETITTINot AvailableStart: 01-23-2024 End: 88-44-4908Pplgzm flowsheetArianna Matute MD Work Phone: [facility] SWS DERMStart: 01-23-2024 End: 18-18-7304Pgkywl flowsheetArianna Matute MD Work Phone: [facility] SWS DERMStart: 2023 End: 72-95-7985qdwmwmhniuNahkcfkbpC[facility] Clinic [facility] Work Phone: Start: 2023 End: 06-60-6938Nmjqqkurs for general adult medical examination without abnormal findingsMartins Ferry Hospitaltart: 2023 End: 87-97-5866Zkvesty encounter procedureAt[facility] Work Phone: Start: 51-69-7311Puswtnd encounter statusMartins Ferry Hospitaltart: 09-12-2023 End: 72-01-7418uttsxwqrbiZmxbkdqjzC[facility] Clinic [facility] Work Phone: Start: 09-12-2023 End: 41-25-2695Bmtfkxh encounter procedureAt[facility] Work Phone: Start: 51-20-6689Cex-patient / Non-visitAtrium Health [facility] [employer] Work Phone: Start: 03-18-2023 End: 48-46-3635psinnekndiChvycfvo Ball Other [employer] Other Start: 85-29-9601Satmly outpatient visit 15 minutes Alber [facility] ClinicStart: 01-02-2023 End: 59-50-3607nukrjwuylsVyqwaobw Ball Other [employer] Other Start: 18-22-3759Kfzdrctxh encounterBenjamin BallFPG Ball Medical ClinicStart: 12-20-2022 End: 49-57-7362wandznhdiuXlmvjimu Ball Other [employer] Other Start: 76-28-1631Xlezgcwha encounterBenjamin BallFPG Ball Medical ClinicStart: 08-02-2022 End: 15-70-2962ffafjpvksvTqzjimyn Ball Other [employer] Other Start: 93-98-8697Oiurlm outpatient visit 15 minutes Alber [facility] ClinicStart: 45-72-5965Lyjluyxer for preprocedural laboratory examinationDR VERNA MALGORZATA .[facility]: 05-07-2022 End: 33-20-2872mhbiqppqvdGY VERNA MALGORZATA .Facility:C5Ybysq: 05-04-2022 End: 36-34-6487vxzcipurooJR VERNA MALGORZATA .Facility:Z9Qyedn: 05-04-2022 End: 75-76-2434Jmszihsgr for preprocedural laboratory examinationDR VERNA MALGORZATA .Facility:R9Jhmnl: 80-14-6656Oxegqinax for preprocedural cardiovascular examinationDR VERNA MALGORZATA .[facility]: 04-22-2022 End: 40-57-0273nmripfduemWL VERNA MALGORZATA .Facility:T8Iazfy: 04-22-2022 End: 54-15-0614Glbuimwgj for preprocedural cardiovascular examinationDR VERNA MALGORZATA .Facility:B1Tblnr: 01-26-2022 End: 20-34-3622qxubodwuuyPI VERNA MALGORZATA .Facility:H4Uunyl: 85-14-8805Heknhzpfv for general adult medical examination without abnormal findingsDR ALBER ALLEN [facility]: 11-28-2021 End: 76-59-2466xcrclrncecQR ALBER ALLENFacility:F1Wsdvr: 11-28-2021 End: 01-93-7217Dkqxdisrh for general adult medical examination without abnormal findingsDR ALBER ALLENFacility:X1Nasti: 11-17-2021 End: 59-17-0380xtypchaqqzHB OXANA ORTEGAFacility:N4Igvgo: 40-83-6588Tulsr health examinationBenstephani Allen Other [employer] Other Start: 85-24-5181Txwbdsoqrkvtc examination normal Alber Allen Other [employer] Other Start: 64-46-0554Najhjsu of abnormal cervical Papanicolaou smearAlber Allen Other [employer] Other Start: 07-22-2021 End: 31-15-9056fpvbaslqeyWC VERNA MCGARRY .Facility: Procedures DateProcedureProcedure DetailPerforming ClinicianStart: 61-77-2355AAH,APTIMA HPV,AGE GDLNKristina Claudette FOREST ECOLOGIST Work Phone: Start: 33-18-7085YJ TOMOSYNTHESIS SCREENING Areli Mcgarry DO Work Phone: Start: 41-97-1416Drdrabq examination of patient Alber Allen Other Depression screeningAlber Allen Other Screening for malignant neoplasm of breastAlber Allen Other Screening for malignant neoplasm of colonBegeorge Allen Other Plan of Treatment DateCare ActivityDetailAuthorStart: 07-23-2025 End: 34-77-3713Wfilxyn encounter blnvoccme39/05/2026 9:00 AM EDT Office Visit [facility] [address] [place] [address] Kathryn Oliver PA [address] [place] [address] [facility] BCP OBStart: 07-17-2024 End: 38-45-7592KRB Skeletal system Views for bone densityDEXA bone density Imaging Routine Postmenopausal state Expected: 07/17/2024 (Approximate), Expires:07/17/2025[facility] Work Phone: comment on above:Expected: 07/17/2024 (Approximate), Expires: 07/17/2025Start: 07-17-2024 End: 41-18-5149Luibqns encounter procedureNOMS BCP OBComment on above:Arrived Start: 01-23-2024 End: 38-21-9726Jmazrkm encounter buuivupgi66/04/2024 3:15 PM EST Office Visit [facility] [address] [place] [phone] Arianna Matute MD [address] [place] [address] ArrivedNOMS SWS DERMComment on above:Arrived Comprehensive metabolic 1999 panel - Serum or PlasmaMadison HealthComprehensive metabolic 1999 panel - Serum or PlasmaMadison HealthTHIN PREP TIS PAP AND HR HPV DNATHIN PREP TIS PAP AND HR HPV DNA Pathology and Cytology Routine Well woman exam with routine gynecological exam Ordered: 07/17/2024N[facility]S HealthcareComment on above:Ordered: 07/17/2024US Kidney - bilateralMadison HealthXR Hip - right 2 ViewsMadison HealthXR Lumbar spine [facility] Payers DatePayer CategoryPayerPolicy [id number] Health InsuranceMEDICAL MUTUAL [id number] 2.0.1.898557.3.57[id number] 2.0.1.120814.3.57[id number] 2.0.1.857776.3.57[id number] 2.16.840.1.546462.3.57[id number] 2.16.840.1.345946.3.57[id number] 2.16.840.1.078797.3.57[id number] 2.16.840.1.578287.3.57[id number] 2.16.840.1.299305.3.57[id number] 2.16.840.1.071136.3.57[id number] [id number]274[id number] [facility] CenterEftbdo94U7340185ZF 2..0.1.351546.19UnknownPROFEE [id number]-[id number] Social History DateTypeDetailFacilityStart: 07-12-2023 End: 57-79-1855Mzx Assigned At [facility] [employer] Other Start: 09-12-2023 End: 66-93-9120Wcrwuky smoking status NHISNever smoked tobacco (finding) [facility] Hospitaltart: 53-71-2200Iwo Assigned At BirthFeSelect Medical Specialty Hospital - Trumbulltart: 74-38-4894Cdnlgwl use and exposure Smokeless tobacco non-userNOMS HealthcareStart: 07-12-2023 End: 74-24-4108Yofrjud of Social functionNOMS HealthcareStart: 28-51-5122Pqg assigned at birthNot on fileNOND HealthcareStart: 47-05-2679LxxVesihf (finding) [facility] Clinical Notes 04-21-2022 to 07-17-2024 Note Date & RrnlCmslXmltxesr76-42-3528 History of Present illness Narrative* Annika Wilkins, FOREST ECOLOGIST - 07/17/2024 9:00 AM EDT Reason for Appointment: Patient ID: Raeann Vivas [...] nursing note reviewed. Exam conducted with a pain management nurse practitioner present. Vitals: Estimated body mass index is [...] for annual unless needed otherwise. Documented by Annika Wilkins NP on behalf of: Annika Wilkins NP documented in this encounterCapital Region Medical CenterPbhgfzrokf45-92-9191 Evaluation note* Diagnosis Onset Date Resolution Status Admit Date Acute bronchitis due to other specified organisms acuteDeceer 2023 11:13amCoughacuteDecember 2023 11:13amFatigueacute Mk 2023 11:13amAcute sinusitisacuteFebruary 2024 9:16am [facility] Work Phone: [phone]) 589-237811-04-2024 History of Present illness Narrative* Arianna Matute [...] Examined Right arm Examined Patient wearing nail mohawk, Denies dark streaks on toenails Left arm [...] Next Visit: 1 year documented in this encounterCapital Region Medical CenterLeexncbuhr87-19-0841 Evaluation note* Encounter Date Diagnosis Assessment Notes Treatment Notes Treatment Clinical Notes Feb, RHONDA (generalized anxiety disorde r) (ICD-10 - F41.1) Healthy diet and exercise. Referral for counseling. Discussed medical treatment but she declines for now. She is coping well but requesting referral for reassurance and advice Feb,ounseling and coordination of care (ICD-10 - Z71.89)Referral sent for counseling [employer] Other 10-02-2023 Evaluation note* Encounter Date Diagnosis Assessment Notes Treatment Notes Treatment Clinical Notes Dec, Screening for colon cancer (ICD- 10 - Z12.11) [employer] Other 05-15-2023 Evaluation note* Encounter Date Diagnosis Assessment Notes Treatment Notes Treatment Clinical Notes July, Acute non-recurrent maxillary si nusitis (ICD-10 - J01.00) Instructed to use Robitussin or Mucinex for cough, saline or Flonase NS for congestion, Tylenol forpain and fever. [employer] Other 02-17-2023 NoteOPERATIVE NOTE OPERATION DATE: 05/07/2022 PROCEDURE: vNOTES hysterectomy with bilateral salpingo-oophorectomy. PREOPERATIVE DIAGNOSIS: Uterine prolapse, vaginal pressure. POSTOPERATIVE DIAGNOSIS: Uterine prolapse, vaginal pressure. ANESTHESIA: General. SURGEON: Verna Mcgarry D.O. RESERVOIR ENGINEERING CONSULTANT: BLESSING [place] URINE OUTPUT: Yellow and clear. [...] condition. Sponge, lap, needle counts correct x2.[facility] 05-07-2022 NoteOPERATIVE NOTE OPERATION DATE: 05/15/2022 ADDENDUM: Please note patient had uterus and tubes removed from the abdomen through the vagina.[facility] HospitalEhejiljq18-30-7088 History general Narrative - Reported* Type Description Date Medical History Scoliosis (and kyphoscoliosis), idiopathic Medical HistoryArthritis of left hipSurgical XbwguwkCcrielghiggj59/2023 Hospitalization Historysee surgical history [facility] [employer] Other Evaluation noteNo InformationNortExcela [facility] [employer] Other Evaluation noteNo assessment information available [facility] Work Phone: Evaluation note* Diagnosis Onset Date Resolution Status Primary osteoarthritis of left hip acuteScoliosis (and kyphoscoliosis), idiopathicacuteWellness examinationacute [facility] Work Phone: Evaluation note* Diagnosis Other seborrheic dermatitis- Primary Capillary angioma Nevus, non-neoplastic Seborrheic keratosis documented in this encounter [facility] HealthcareEvaluation note* Diagnosis Well woman exam with routine gynecological exam Routine gynecological examination Encounter for screening mammogram for malignant neoplasm of breast Postmenopausal state Asymptomatic postmenopausal status (age-related) (natural) documented in this encounter [facility] HealthcareEvaluation [facility]* Diagnosis Onset Date Resolution Status Admit Date Osteoporosis acuteOctober 2024 10:59amPrimary osteoarthritis of left hipacuteOctober 2024 10:59amScoliosis (and kyphoscoliosis), idiopathicacuteOctober 2024 10:59amWellness examinationacuteOctober 2024 10:59am [facility] Work Phone: History general Narrative - Reported* Type Description Date Medical History Scoliosis (and kyphoscoliosis), idiopathic Medical HistoryArthritis of left hip [facility] [employer] Other Reason for referral (narrative)* Reason Referral for budget counselor ing Diagnosis 1 RHONDA (generalized anx iety disorder) (F41.1) Referral Organization [facility] [place] Referring Provider First Name Alber Referring Provider Last Name Alejandro Referring Provider Specialty Internal Me dicine Referred Organization [facility] Referred Address ,[place],[address] Referred Provider Specialty Social Worke r Clinical Referral Priority Routine General Notes Requesting referral to [facility] counseling: Christa Wilson [place] [employer] Other Reason for referral (narrative)No reason for referral information availableThe [facility] Work Phone: Summary Purpose Family History Relationship Condition Age at Onset Recorded Date/T padmini father Diabetes mellitus Unknown Heart diseaseUnknownDeceasedUnknownNot SpecifiedDiabetes mellitusUnknown HypertensionUnknown Relationship Condition Age at Onset Recorded Date/T padmini father Diabetes mellitus Unknown Heart diseaseUnknownDeceasedUnknownmotherDiabetes mellitusUnknownHypertension Unknown Advance Directives Advance Directive Response Recorded [...] idiopathic Wellness examination Chief Complaint Admit Date [phone] cold sinuses a week Decee r 2023 11:13am COVID-/Cough/Sinuses/Congestion May 15, 2024 [...] and content) DATE CREATED AUTHOR 06/18/2022 [facility] DATE CREATED AUTHOR AUTHOR'S ORGANIZ ATION 07/18/2024 [facility] EPIC REASON FOR VISIT (unrecogniz ed section and content) ReasonCommentsSkin CheckReasonCommentsGeisinger Community [facility] Women Visit Care Teams (unrecognized sec tion and content) Team Status: Active Member Role Status Dates Alber Allen DO Primary Care Provider Active Team Status: Inactive Member Role Status Dates Alber Allen DO Primary Care Provide r, Attending Provider Active Start: 2023 End: 2023 Team Status: Active Member Role Status Dates Alber Allen DO Primary Care Provider Active Start: July 12, 2023 Verna NicholasoAttending ProviderActiveStart: July 12, 2023 Team Status: Inactive Member Role Status Dates Alber Allen DO Primary Care Provide r, Attending Provider Active Start: September 12, 2023 End: September 12, 2023Team MemberRelationshipSpecialtyStart DateEnd Date Alber Allen MD [address] [phone] PCP - GeneralInternal Medicine07/12/23Team MemberRelationshipSpecialtyStart Date End Date Alber Allen MD [address] [phone] PCP - GeneralInternal Medicine07/12/23Team MemberRelationshipSpecialtyStart Date End Date Alber Allen MD [address] [phone] PCP - GeneralInternal Medicine07/12/23 Team Status: Inactive Member Role Status Dates Alber Allen DO Primary Care Provide r, Attending Provider Active Start: February 20, 2024 End: February 20, 2024 Team Status: Inactive Member Role Status Dates Alber Allen DO Primary Care Provide r, Attending Provider Active Start: May 15, 2024 End: May 15, 2024Team MemberRelationshipSpecialtyStart DateEnd Date Alber Allen DO [address] [place] [address] PCP - GeneralInternal Medicine07/12/23Team MemberRelationshipSpecialtyStart Date End Date Alber Allen [address] [place] [phone] PCP - GeneralInternal Medicine07/12/23 Team Status: Active Member Role/Relationship Status Dates Alber Allen DO Primary Care Provider Active Team Status: Inactive Member Role/Relationship Status Dates Alber Allen DO Primary Care Provider Active Start: January 04, 2025 End: January 04enjasherley Allen DOAttending ProviderActiveStart: January 04, 2025 End: January 04, 2025 [...] BE BASED ON THE PRIMARY CLINICAL RECORDS. [facility] [employer] [facility]. provides no warranty or guarantee of the accuracy or completeness of information in this document.
--- OUTSIDE RECORDS SUMMARY | 2025-01-19 08:26 | XMS_ITS | Clinical Summary ---
Author Organization [facility] Address [address] [place] [address] Care Team Providers Care Hydraulic Press In Operator Name Role Phone Alber Allen DO Primary Care Provider [phone] Allergies Active AllergyReactionsCriticalityNoted NlmrTjawmnyaSgjnjqbnxsg10/16/2024 Other Reaction(s): Unknown Medications MedicationSigDispense QuantityRefillsLast FilledStart DateEnd DateStatus calcium carbonate 1500 (600 Ca) MG tablet every 12 (twelve) hoursActive Pediatric Multivitamins-Fl (MultiVitamin + Fluoride) 0.25 MG chewable tablet MultivitaminActive CREATINE PO Take by mouthActive fluocinonide (Lidex) 0.05 % external solution Indications:Other seborrheic dermatitisApply to affected areas on the scalp, up to twice a day when flared, 30 day supply 60 mL ctive Active Problems No known active problems Encounters DateTypeDepartmentCare CcglJtrfzhurguc86/25/2025Telephone [facility] O[facility]YN [address] [place] [address] [place] [address] Annika Wilkins NP from Last 3 Months Family History Medical HistoryRelationNameCommentsAlzheimer's diseaseFatherDiabetesFatherHeart diseaseFatherHypertensionMotherpostmenstrual osteoporosisMotherCoronary artery diseaseOtherDiabetesOtherHypertensionOtherRelationNameStatusCommentsFather DeceasedMotherDeceasedOther Social History Tobacco UseTypesPacks/DayYears UsedDateSmoking Tobacco: NeverSmokeless Tobacco: Never Tobacco Cessation:Counseling Given: Not Answered CommentsNoSex and Gender InformationValueDate RecordedSex Assigned at BirthNot on fileLegal EznOujodo64/15/2023 6:40 PM EDTGender IdentityNot on file Sexual OrientationNot on file Last Filed Vital Signs Vital SignReadingTime TakenCommentsBlood Lnuzwoba018/80007/17/2024 9:20 AM EDT Pulse--Temperature--Respiratory Rate--Oxygen Saturation--Inhaled Oxygen Concentration--Gxsvey66 kg (145 lb 8 oz)07/17/2024 9:20 AM ABLMeemng848.2 cm (5' 1.5 )07/17/2024 9:20 AM EDTBody Mass Index27.05007/17/2024 9:20 AM EDT Plan of Treatment DateTypeDepartmentCare Team (Latest Contact Info)Ezuywgukjml60/05/2026 10:00 AM EDTOffice Visit [facility] Josh SANTAMARIA [address] [place] [phone] Kathryn Oliver PA [address] [place] [address] Insurance Care Teams Team MemberRelationshipSpecialtyStart DateEnd Date Alber Allen DO [address] [facility] [place] [address] PCP - GeneralInternal Medicine07/12/23
== END 2025-01-19 08:24 | disposition home or self-care (01) ==
LOC: US 08:23
PROVIDERS: PCP Internal Medicine; Visit Provider Internal Medicine
DX: M54.9 Dorsalgia, unspecified (principal); R10.0 Acute abdomen; M81.0 Age-related osteoporosis without current pathological fracture
CPT/HCPCS: 76775